=== PATIENT | female | born 1945 | race Caucasian/White ===

== ENCOUNTER 2020-09-28 13:05 | Emergency (ER) | payer MEDICARE, SELFPAY ==
--- NOTE | ~2020-09-28 | XR_ITS ---
EXAMINATION: XR CHEST CLINICAL INFORMATION: Weakness COMPARISON: Previous chest x-ray most recent January 2020 TECHNIQUE: Frontal view of the chest was obtained. FINDINGS: The cardiac and mediastinal contours are stable. The lungs are well inflated. The lungs are clear. There is no pleural effusion or pneumothorax. There are degenerative changes of the spine. XR/XR chest 1V IMPRESSION: Well-inflated lungs. No evidence for acute disease in the chest.
--- NOTE | 2020-09-28 13:38 | ECG_ITS ---
Test Reason : WEAKNESS Blood Pressure : / mmHG Vent. Rate : 054 BPM Atrial Rate : 054 BPM P-R Int : 192 ms QRS Dur : 086 ms QT Int : 414 ms P-R-T Axes : 061 074 067 degrees QTc Int : 392 ms Sinus bradycardia with Premature atrial complexes Otherwise normal ECG When compared with ECG of 18-FEB-2020 15:12, Premature atrial complexes are now Present Referred By: Alexys Mtz Electronically Signed By:VARSHA MORRELL
[2020-09-28 13:39] VITALS: BP 102/60; BP 118/56; PULSE 58; PULSE 62; RESP 18; TEMP 36.8; O2SAT 95; BMI 18.5
[2020-09-28 14:12] VITALS: BP 143/68; PULSE 62; RESP 18; O2SAT 98
[2020-09-28 14:12] LABS: MANUAL DIFF FLAG NO
[2020-09-28 14:15] LABS: Basophils Percent Auto 0.9 % (0-2); Eosinophils Absolute Auto 0.2 X10*3/uL (0.0-0.4); Eosinophils Percent Auto 5.2 % (0-4); Hematocrit 29.3 % (37-47); Hemoglobin 10.4 g/dl (12.0-16.0); Lymphocytes Absolute Auto 1.1 X10*3/uL (1.2-4.9); Lymphocytes Percent Auto 24.8 % (20-40); Mean Corpuscular HGB Conc 35.5 g/dl (31.0-35.0); Mean Corpuscular Hemoglobin 30.9 pg (27.0-33.0); Mean Corpuscular Volume 86.9 fL (80-98); Mean Platelet Volume 8.8 fL (9.4-12.3); Monocytes Absolute Auto 0.4 X10*3/uL (0.1-1.2); Monocytes Percent Auto 8.7 % (2-11); Neutrophils Absolute Auto 2.6 X10*3/uL (2.0-8.3); Neutrophils Percent Auto 60.4 % (45-73); Platelet Count 168 X10*3/uL (160-400); Red Blood Count 3.37 X10*6/uL (4.20-5.50); White Blood Count 4.3 X10*3/uL (4.8-10.8)
[2020-09-28 14:18] LABS: Prothrombin Time 12.3 SEC (10.8-13.0)
[2020-09-28 14:20] LABS: Partial Thromboplastin Time 32.6 SEC (24.1-38.0)
[2020-09-28 14:26] LABS: COVID-19 Test Negative (Negative)
--- NOTE | 2020-09-28 14:27 | PC.NURSE ---
PT ALERT AND ORIENTED, SKIN PWD, RESPIRATIONS EVEN AND UNLABORED. PT REPORTS PAIN ALL OVER ESPECIALLY IN HER BACK AND NECK AREA. PT VERY FRAIL IN APPEARANCE.
[2020-09-28 14:35] LABS: Alanine Aminotransferase 6 U/L (0-31); Albumin Level 3.6 g/dL (3.5-5.0); Alkaline Phosphatase 46 U/L (39-117); Anion Gap 13 (12-20); Aspartate Amino Transferase 11 U/L (5-31); Bilirubin Total 0.3 mg/dL (0.0-1.0); Blood Urea Nitrogen 11 mg/dL (9-16); Carbon Dioxide 28 mmol/L (22-29); Chloride 90 mmol/L (96-108); Creatinine Clr Calc Pharmacy 30.5; Estimated Glomerular Filt Rate 43; Glucose Random 104 mg/dL (60-115); Sodium 126 mmol/L (135-145); Total Protein 5.5 g/dL (6.5-8.0)
[2020-09-28 14:40] LABS: Troponin-I High Sensitivity < 3.5 ng/L (<3.5-17.0)
[2020-09-28 14:45] LABS: Glucose Urine UA NEG (NEG); Leukocyte Esterase Urine NEG (NEG); Nitrite Urine NEG (NEG); PH 6.5 (5.0-8.0); Specific Gravity - Urine <= 1.005 (1.005-1.025); Urine Blood 2+ (NEG); Urine Ketones NEG (NEG); Urine Protein NEG (NEG-TRACE)
[2020-09-28 14:47] LABS: Appearance Urine CLEAR; Color Urine YELLOW
[2020-09-28 15:03] LABS: WBC Urine 0-2 /HPF (0-4)
[2020-09-28 15:04] LABS: Amphetamine Screen Urine Not Detected (Not Detect); Barbiturates, Urine Not Detected (Not Detect); Benzodiazepines Screen Urine Not Detected (Not Detect); Cannabinoid Screen Urine Not Detected (Not Detect); Cocaine Screen Urine Not Detected (Not Detect); Opiate Screen Urine POSITIVE (Not Detect); Phencyclidine Screen Urine Not Detected (Not Detect)
[2020-09-28 15:23] VITALS: BP 143/68; PULSE 62; O2SAT 98
--- NOTE | 2020-09-28 15:28 | PC.NURSE ---
pt calling her wants to go home, getting dressed. 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
--- NOTE | 2020-09-28 15:35 | ED_ITS ---
HPI - General Adult General Chief complaint: General Medical Stated complaint: weakness Time Seen by Provider: 09/28/20 13:34 Source: patient Mode of arrival: ambulatory Limitations: no limitations History of Present Illness HPI narrative: 75-year-old female with past medical history that is significant for hypertension, hyperlipidemia, depression and anxiety disorder as well as chronic hyponatremia, postoperative anemia, surgical history of right hip fracture who presents via EMS from home with complaint of reporting generalized weakness and lump on the left side and neck as well as exacerbation of chronic back pain for which she is on oxycodone and unable to eat or care for herself. She otherwise denies any recent illness, no chest pain or shortness of breath no fall or injury. Onset (ago): day(s) Severity: moderate Associated symptoms: denies other symptoms Treatments prior to arrival: none Related Data Home Medications Medication Instructions Recorded Confirmed losartan 50 mg tablet 50 mg PO DAILY 07/24/20 09/28/20 metoprolol tartrate 25 mg tablet 25 mg PO BID 07/24/20 09/28/20 mirtazapine 1 tab PO BEDTIME 09/28/20 09/28/20 simvastatin 1 tab PO BEDTIME 09/28/20 09/28/20 trazodone 1 tab PO BEDTIME PRN 09/28/20 09/28/20 Previous Rx's Medication Instructions Recorded gabapentin 100 mg capsule 100 mg PO TID #90 cap 06/06/20 silver sulfadiazine 1 % topical 1 appl TOPICAL DAILY 10 Days #50 g 08/28/20 cream clonazepam 0.5 mg tablet 0.5 mg PO TID #90 tab 09/21/20 oxycodone 10 mg tablet 10 mg PO Q6H PRN 30 Days #120 tab 09/21/20 Allergies Allergy/AdvReac Type Severity Reaction Status Date / Time amoxicillin [AMOXICILLIN] Allergy Intermediate HIVES Verified 09/28/20 13:38 acetaminophen [Tylenol] Allergy Mild stomach Verified 09/28/20 13:38 upset penicillin V Allergy Mild Itching Verified 09/28/20 13:38 Penicillins [PENICILLINS] Allergy Mild Itching Verified 09/28/20 13:38 Eric inhibitors Allergy Unknown Unknown Uncoded 09/28/20 13:38 Clindamycin HCl AdvReac Mild Diarrhea Uncoded 09/28/20 13:38 Review of Systems Review of Systems: Constitutional: No Weight loss, No Fever, No Chills, No Night Sweats, No Fatigue, No Malaise ENT/Mouth: No Hearing loss, No Ear Pain, No Nasal Congestion, No Sinus Pain, No Hoarseness, No sore throat, No Rhinorrhea, No Swallowing Difficulty Eyes: No Eye Pain, No Swelling, No Redness, No Foreign Body, No Discharge, No Vision Changes Cardiovascular: No Chest Pain, No SOB, No Dyspnea on Exertion, No Orthopnea, No Edema, No Palpitations Respiratory: No Cough, No Sputum, No Wheezing, No Smoke Exposure, No Dyspnea Gastrointestinal: No Nausea, No Vomiting, No Diarrhea, No Constipation, No abdominal Pain, No Hematochezia, No Melena Genitourinary: No Dysuria, No Urinary Frequency, No Hematuria, No Urinary Incontinence, No Urgency, No Flank Pain Musculoskeletal: No joint pain, No Myalgias, No Joint Swelling Skin: No Skin Lesions, No rash Neuro: + Weakness, No Numbness, No Paresthesias, No Loss of Consciousness, No Dizziness, No Headache Psych: No Social Issues Heme/Lymph: No Bruising, No Bleeding,No Lymphadenopathy Endocrine: No Polyuria, No Polydipsia, No Temperature Intolerance Yes all other systems are reviewed and are negative [facility] Past Medical History Medical History (Updated 09/28/20 @ 15:48 by Alexys Mtz NP) Cervical cancer Chronic back pain Depression High cholesterol HTN (hypertension) Surgical History History of Social History Social History Smoking Status: Former smoker Use of substances other than those prescribed or required for medical reasons: No Advance Directives: No Advance Directives Information Provided: No Physical Exam Vital Signs: Vital Signs: Last Vital Signs Temp 98.2 F 09/28/20 13:39 Pulse 62 09/28/20 14:12 Resp 18 09/28/20 14:12 BP 143/68 H 09/28/20 14:12 Pulse Ox 98 09/28/20 14:12 Body Mass Index 18.5 Reviewed Const: Other: Elderly, ill-kempt, shows will order of spoke General: cooperative; No acute distress or intoxicated appearing Nutritional Appearance: average body habitus Orientation/consciousness: patient oriented x3 HENMT: Head: Yes normal to inspection Ears: hearing grossly normal bilaterally Face and sinus: Yes Facial tenderness on exam of face and sinuses (Palpable left anterior chain lymph node that is mobile. size of pea ) Eyes: General: appearance normal, both eyes and all related structures Visual Howell: normal visual howell by confrontation Neck: Neck: Yes normal visual inspection, No positive Brudzinski's sign, No positive Kernig's sign and No tender Thyroid: Thyroid normal Chest: Chest palpation & inspection: normal inspection of the chest Resp: Effort & Inspection: normal respiratory effort Auscultation: clear to auscultation bilaterally Cardio: Jugular venous distension: no JVD GI: Inspection: Yes normal to inspection Percussion: Yes normal to percussion Auscultation: normal bowel sounds : General: Yes no CVA tenderness Back/Spine/Pelvis: Back: no CVA tenderness Skin: General skin exam: no rashes or lesions noted Neuro: General: patient oriented x3 Extrem: General: Yes normal to inspection Course Course Course Narrative: 75-year-old female with multiple vague symptoms she does have a small palpable lymph node on the left side of the neck also complaining of generalized weakness and is ill kempt question social issues inability to care for self. Does live at home apparently with her will call the to give further history. Reevaluation(s) Reevaluation #1: Patient had lab work done directly after this states she would like to leave she does not want to hear or need to be here. I did ask her that she seems little ill kempt and if her home situation was okay states she is fine prior to this I did have PT consulted they are coming down to her however she do es not want to wait. She is demanding to leave. Patient subsequently got up from the bed without having the labs resulted yet and got dressed with assistance of staff and call to pick her up. She did not offer reason why she went to suddenly leave. Medical Decision Making Lab Data Result diagrams: 09/28/20 14:01 09/28/20 14:01 Labs: Lab Results 09/28/20 09/28/20 09/28/20 Range/Units 14:01 14:01 14:01 WBC 4.3 L (4.8-10.8) X10*3/uL RBC 3.37 L (4.20-5.50) X10*6/uL Hgb 10.4 L (12.0-16.0) g/dl Hct 29.3 L (37-47) % MCV 86.9 (80-98) fL MCH 30.9 (27.0-33.0) pg MCHC 35.5 H (31.0-35.0) g/dl RDW 13.0 (11.0-16.0) % Plt Count 168 (160-400) X10*3/uL MPV 8.8 L (9.4-12.3) fL Immature Gran % (Auto) 0.0 (0.0-0.4) % Neut % (Auto) 60.4 (45-73) % Lymph % (Auto) 24.8 (20-40) % [place] % (Auto) 8.7 (2-11) % Eos % (Auto) 5.2 H (0-4) % Baso % (Auto) 0.9 (0-2) % Lymph # (Auto) 1.1 L (1.2-4.9) X10*3/uL [place] # (Auto) 0.4 (0.1-1.2) X10*3/uL Eos # (Auto) 0.2 (0.0-0.4) X10*3/uL Baso # (Auto) 0.0 (0.0-0.2) X10*3/uL Abs Immat Gran (auto) 0.00 (0.00-0.03) X10*3/uL Absolute Neuts (auto) 2.6 (2.0-8.3) X10*3/uL Absolute Nucleated RBC 0.000 (0.0-0.012) X10*3/uL Nucleated RBC % (auto) 0.0 (0.0-0.2) /100WBC PT 12.3 (10.8-13.0) SEC INR 1.0 (0.9-1.1) APTT 32.6 (24.1-38.0) SEC Sodium 126 L (135-145) mmol/L Potassium 5.0 (3.3-5.1) mmol/L Chloride 90 L (96-108) mmol/L Carbon Dioxide 28 (22-29) mmol/L Anion Gap 13 (12-20) BUN 11 (9-16) mg/dL Creatinine 1.23 (0.5-1.4) mg/dL Estim Creat Clear Calc 30.5 Estimated GFR 43 Random Glucose 104 (60-115) mg/dL Calcium 9.0 (8.4-10.2) mg/dL Total Bilirubin 0.3 (0.0-1.0) mg/dL AST 11 (5-31) U/L ALT 6 (0-31) U/L Alkaline Phosphatase 46 (39-117) U/L Troponin I High Sens (<3.5-17.0) ng/L Total Protein 5.5 L (6.5-8.0) g/dL Albumin 3.6 (3.5-5.0) g/dL Urine Color Urine Appearance Urine pH (5.0-8.0) Ur Specific [place] (1.005-1.025) Urine Protein (NEG-TRACE) MG/DL Urine Glucose (UA) (NEG) MG/DL Urine Ketones (NEG) MG/DL Urine Blood (NEG) Urine Nitrite (NEG) Ur Leukocyte Esterase (NEG) Urine RBC (0) /HPF Urine WBC (0-4) /HPF Ur Squamous Epith Cells /LPF Urine Bacteria /LPF Urine Opiates Screen (Not Detect) Ur Barbiturates Screen (Not Detect) Ur Phencyclidine Scrn (Not Detect) Ur Amphetamines Screen (Not Detect) U Benzodiazepines Scrn (Not Detect) Urine Cocaine Screen (Not Detect) U Marijuana (THC) Screen (Not Detect) COVID-19 (CEDRICK) (Negative) COVID-19 Clin Com 09/28/20 09/28/20 09/28/20 Range/Units 14:01 14:01 14:16 WBC (4.8-10.8) X10*3/uL RBC (4.20-5.50) X10*6/uL Hgb (12.0-16.0) g/dl Hct (37-47) % MCV (80-98) fL MCH (27.0-33.0) pg MCHC (31.0-35.0) g/dl RDW (11.0-16.0) % Plt Count (160-400) X10*3/uL MPV (9.4-12.3) fL Immature Gran % (Auto) (0.0-0.4) % Neut % (Auto) (45-73) % Lymph % (Auto) (20-40) % [place] % (Auto) (2-11) % Eos % (Auto) (0-4) % Baso % (Auto) (0-2) % Lymph # (Auto) (1.2-4.9) X10*3/uL [place] # (Auto) (0.1-1.2) X10*3/uL Eos # (Auto) (0.0-0.4) X10*3/uL Baso # (Auto) (0.0-0.2) X10*3/uL Abs Immat Gran (auto) (0.00-0.03) X10*3/uL Absolute Neuts (auto) (2.0-8.3) X10*3/uL Absolute Nucleated RBC (0.0-0.012) X10*3/uL Nucleated RBC % (auto) (0.0-0.2) /100WBC PT (10.8-13.0) SEC INR (0.9-1.1) APTT (24.1-38.0) SEC Sodium (135-145) mmol/L Potassium (3.3-5.1) mmol/L Chloride (96-108) mmol/L Carbon Dioxide (22-29) mmol/L Anion Gap (12-20) BUN (9-16) mg/dL Creatinine (0.5-1.4) mg/dL Estim Creat Clear Calc Estimated GFR Random Glucose (60-115) mg/dL Calcium (8.4-10.2) mg/dL Total Bilirubin (0.0-1.0) mg/dL AST (5-31) U/L ALT (0-31) U/L Alkaline Phosphatase (39-117) U/L Troponin I High Sens < 3.5 (<3.5-17.0) ng/L Total Protein (6.5-8.0) g/dL Albumin (3.5-5.0) g/dL Urine Color YELLOW Urine Appearance CLEAR Urine pH 6.5 (5.0-8.0) Ur Specific [place] <= 1.005 (1.005-1.025) Urine Protein NEG (NEG-TRACE) MG/DL Urine Glucose (UA) NEG (NEG) MG/DL Urine Ketones NEG (NEG) MG/DL Urine Blood 2+ H (NEG) Urine Nitrite NEG (NEG) Ur Leukocyte Esterase NEG (NEG) Urine RBC 1-4 (0) /HPF Urine WBC 0-2 (0-4) /HPF Ur Squamous Epith Cells NONE /LPF Urine Bacteria NONE /LPF Urine Opiates Screen (Not Detect) Ur Barbiturates Screen (Not Detect) Ur Phencyclidine Scrn (Not Detect) Ur Amphetamines Screen (Not Detect) U Benzodiazepines Scrn (Not Detect) Urine Cocaine Screen (Not Detect) U Marijuana (THC) Screen (Not Detect) COVID-19 (CEDRICK) Negative (Negative) COVID-19 Clin Com See Note 09/28/20 Range/Units 14:16 WBC (4.8-10.8) X10*3/uL RBC (4.20-5.50) X10*6/uL Hgb (12.0-16.0) g/dl Hct (37-47) % MCV (80-98) fL MCH (27.0-33.0) pg MCHC (31.0-35.0) g/dl RDW (11.0-16.0) % Plt Count (160-400) X10*3/uL MPV (9.4-12.3) fL Immature Gran % (Auto) (0.0-0.4) % Neut % (Auto) (45-73) % Lymph % (Auto) (20-40) % [place] % (Auto) (2-11) % Eos % (Auto) (0-4) % Baso % (Auto) (0-2) % Lymph # (Auto) (1.2-4.9) X10*3/uL [place] # (Auto) (0.1-1.2) X10*3/uL Eos # (Auto) (0.0-0.4) X10*3/uL Baso # (Auto) (0.0-0.2) X10*3/uL Abs Immat Gran (auto) (0.00-0.03) X10*3/uL Absolute Neuts (auto) (2.0-8.3) X10*3/uL Absolute Nucleated RBC (0.0-0.012) X10*3/uL Nucleated RBC % (auto) (0.0-0.2) /100WBC PT (10.8-13.0) SEC INR (0.9-1.1) APTT (24.1-38.0) SEC Sodium (135-145) mmol/L Potassium (3.3-5.1) mmol/L Chloride (96-108) mmol/L Carbon Dioxide (22-29) mmol/L Anion Gap (12-20) BUN (9-16) mg/dL Creatinine (0.5-1.4) mg/dL Estim Creat Clear Calc Estimated GFR Random Glucose (60-115) mg/dL Calcium (8.4-10.2) mg/dL Total Bilirubin (0.0-1.0) mg/dL AST (5-31) U/L ALT (0-31) U/L Alkaline Phosphatase (39-117) U/L Troponin I High Sens (<3.5-17.0) ng/L Total Protein (6.5-8.0) g/dL Albumin (3.5-5.0) g/dL Urine Color Urine Appearance Urine pH (5.0-8.0) Ur Specific [place] (1.005-1.025) Urine Protein (NEG-TRACE) MG/DL Urine Glucose (UA) (NEG) MG/DL Urine Ketones (NEG) MG/DL Urine Blood (NEG) Urine Nitrite (NEG) Ur Leukocyte Esterase (NEG) Urine RBC (0) /HPF Urine WBC (0-4) /HPF Ur Squamous Epith Cells /LPF Urine Bacteria /LPF Urine Opiates Screen POSITIVE H (Not Detect) Ur Barbiturates Screen Not Detected (Not Detect) Ur Phencyclidine Scrn Not Detected (Not Detect) Ur Amphetamines Screen Not Detected (Not Detect) U Benzodiazepines Scrn Not Detected (Not Detect) Urine Cocaine Screen Not Detected (Not Detect) U Marijuana (THC) Screen Not Detected (Not Detect) COVID-19 (CEDRICK) (Negative) COVID-19 Clin Com Discharge Plan Discharge Clinical Impression: Weakness, Chronic hyponatremia, Lymph node disorder Patient Disposition: Left Against Medical Advice Prescriptions: No Action gabapentin 100 mg capsule 100 mg PO TID Qty: 90 RF: 8 metoprolol tartrate 25 mg tablet 25 mg PO BID RF: 0 losartan 50 mg tablet 50 mg PO DAILY RF: 0 silver sulfadiazine 1 % cream 1 appl topical DAILY 10 Days Qty: 50 RF: 3 clonazepam [Klonopin] 0.5 mg tablet 0.5 mg PO TID Qty: 90 RF: 0 oxycodone 10 mg tablet 10 mg PO Q6H PRN (Reason: pain) 30 Days Qty: 120 RF: 0 trazodone 100 mg tablet 1 tab PO BEDTIME PRN (Reason: Insomnia) RF: 0 simvastatin 20 mg tablet 1 tab PO BEDTIME RF: 0 mirtazapine 15 mg tablet 1 tab PO BEDTIME RF: 0 Interventions: ED Discharge Assessment Last Done: 09/28/20 15:31 Discharge Date/Time: 09/28/20 15:33
== END 2020-09-28 15:33 | disposition left against medical advice (07) ==
PROVIDERS: Nurse Practitioner Primary Care; Emergency Provider Emergency Medicine Emergency Medical Services; PCP Internal Medicine
DX: E87.1 Hypo-osmolality and hyponatremia (principal); R53.1 Weakness; R59.9 Enlarged lymph nodes, unspecified; I10 Essential (primary) hypertension; Z20.822 Contact with and (suspected) exposure to COVID-19; Z87.891 Personal history of nicotine dependence; Z79.899 Other long term (current) drug therapy
CPT/HCPCS: 36415; 71045; 80053; 80307; 81001; 84484; 85025; 85610; 85730; 87635; 93005; 97161; 99284

== ENCOUNTER 2020-10-29 16:41 | Emergency (ER) | payer MEDICARE, SELFPAY ==
[2020-10-29 16:53] VITALS: BP 167/77; BP 179/80; PULSE 70; PULSE 75; RESP 22; TEMP 36.6; O2SAT 100; O2SAT 98; BMI 16.8
--- NOTE | 2020-10-29 17:20 | ED.NAVMDI ---
HPI - Nausea/Vomiting/Diarrhea General Chief complaint: Nausea/Vomiting/Diarrhea Stated complaint: weakness back pain Time Seen by Provider: 10/29/20 17:11 Source: EMS Mode of arrival: EMS Limitations: no limitations History of Present Illness HPI Narrative: 75 yo female with reported with weakness, diarrhea, decreased PO intake and cough. All other history is limited as patient refuses to give me more information and wants to go home. She tells me she feels better and is cold and wants to go home. Related Data Home Medications Medication Instructions Recorded Confirmed losartan 50 mg tablet 50 mg PO DAILY 07/24/20 10/08/20 metoprolol tartrate 25 mg tablet 25 mg PO BID 07/24/20 10/08/20 simvastatin 1 tab PO BEDTIME 09/28/20 10/08/20 Previous Rx's Medication Instructions Recorded gabapentin 100 mg capsule 100 mg PO TID #90 cap 06/06/20 silver sulfadiazine 1 % topical 1 appl TOPICAL DAILY 10 Days #50 g 10/10/20 cream mirtazapine 15 mg tablet 15 mg PO BEDTIME #30 tab 10/12/20 trazodone 100 mg tablet 100 mg PO BEDTIME PRN #60 tab 10/12/20 food supplemt, lactose-reduced See Rx Instructions PO .COMPLEX 10/17/20 #5688 ml clonazepam 0.5 mg tablet 0.5 mg PO TID #90 tab 10/19/20 oxycodone 10 mg tablet 10 mg PO Q6H PRN 30 Days #120 tab 10/19/20 Allergies Allergy/AdvReac Type Severity Reaction Status Date / Time amoxicillin [AMOXICILLIN] Allergy Intermediate HIVES Verified 10/08/20 10:30 acetaminophen [Tylenol] Allergy Mild stomach Verified 10/08/20 10:30 upset penicillin V Allergy Mild Itching Verified 10/08/20 10:30 Penicillins [PENICILLINS] Allergy Mild Itching Verified 10/08/20 10:30 Eric inhibitors Allergy Unknown Unknown Uncoded 09/28/20 13:38 Clindamycin HCl AdvReac Mild Diarrhea Uncoded 09/28/20 13:38 Review of Systems Review of Systems: Refused to answer questions PMFSH Past Medical History Source: old records reviewed Medical History (Updated 10/29/20 @ 17:22 by Marisela Vaca NP) Cervical cancer Chronic back pain Depression High cholesterol HTN (hypertension) Surgical History History of Social History Social History (Updated 10/08/20 @ 10:30 by LARRY Natarajan) Alcohol intake: never Smoking Status: Former smoker Advance Directives: No Advance Directives Information Provided: No Physical Exam Vital Signs: Vital Signs: Last Vital Signs Temp 97.9 F 10/29/20 16:53 Pulse 75 10/29/20 16:53 Resp 22 H 10/29/20 16:53 BP 179/80 H 10/29/20 16:53 Pulse Ox 98 10/29/20 16:53 Body Mass Index 16.8 Const: General: healthy appearing and no acute distress Nutritional Appearance: average body habitus Orientation/consciousness: oriented to person and patient oriented x3 Limitations: no limitations HENMT: Head: Yes normal to inspection Ears: hearing grossly normal bilaterally General nose exam: Normal external nose present Face and sinus: Yes normal facial exam Mouth: Normal oral and palatal mucosa present Eyes: General: appearance normal, both eyes and all related structures Neck: Neck: Yes normal visual inspection Chest: Chest palpation & inspection: normal inspection of the chest Resp: Effort & Inspection: normal respiratory effort and able to speak in complete sentences GI: Inspection: Yes normal to inspection Skin: General skin exam: no rashes or lesions noted Neuro: General: oriented to person and patient oriented x3 Course Course Course Narrative: [id number]-went to see the patient and she tells me she is going home. She also she called her son and he is picking her up. I offered to examine the patient and she declined. Attempted to ask questions as to why she was here but patient refused to answer all questions. She is alert and oriented. Vital signs stable. Discharge Plan Discharge Clinical Impression: Weakness Patient Disposition: Left Against Medical Advice Instructions: Weakness (ED), Against Medical Advice (ED) Additional Instructions: You were seen by a provider however you refused an exam and all interventions offered to you Prescriptions: No Action gabapentin 100 mg capsule 100 mg PO TID Qty: 90 RF: 8 metoprolol tartrate 25 mg tablet 25 mg PO BID RF: 0 losartan 50 mg tablet 50 mg PO DAILY RF: 0 silver sulfadiazine 1 % cream 1 appl topical DAILY 10 Days Qty: 50 RF: 3 mirtazapine 15 mg tablet 15 mg PO BEDTIME Qty: 30 RF: 5 trazodone 100 mg tablet 100 mg PO BEDTIME PRN (Reason: Insomnia) Qty: 60 RF: 8 Ensure High Protein Liquid See Rx Instructions PO .COMPLEX Qty: 5688 RF: 8 clonazepam [Klonopin] 0.5 mg tablet 0.5 mg PO TID Qty: 90 RF: 0 oxycodone 10 mg tablet 10 mg PO Q6H PRN (Reason: pain) 30 Days Qty: 120 RF: 0 simvastatin 20 mg tablet 1 tab PO BEDTIME RF: 0 Referrals: Physician,Unknown [Primary Care Provider] - 2 days Stand Alone Forms: Against Medical Advice Interventions: ED Discharge Assessment Last Done: 10/29/20 17:54 Discharge Date/Time: 10/29/20 17:54
== END 2020-10-29 17:54 | disposition left against medical advice (07) ==
PROVIDERS: Emergency Provider Internal Medicine
DX: R53.1 Weakness (principal); I10 Essential (primary) hypertension; Z85.41 Personal history of malignant neoplasm of cervix uteri
CPT/HCPCS: 99283

== ENCOUNTER 2020-11-23 16:07 | Emergency (ER) | payer MEDICARE, SELFPAY ==
[2020-11-23 16:34] VITALS: BP 146/64; BP 152/76; PULSE 67; PULSE 72; RESP 16; TEMP 37.1; O2SAT 98; BMI 16.8
--- NOTE | 2020-11-23 17:05 | ED_ITS ---
HPI - General Adult General Chief complaint: General Medical Stated complaint: back pain Time Seen by Provider: 11/23/20 16:43 Source: EMS Mode of arrival: EMS Limitations: no limitations History of Present Illness HPI narrative: 75-year-old female with below noted past medical history including history of chronic pain, depression, hypercholesteremia, hypertension she presents via EMS from home with complaint of pain all over states she ran out of her pain medication and is having worsening pain. Onset (ago): day(s) Radiation: non-radiation Severity: moderate Quality: aching Pain Consistency: constant Relieving factors: none Exacerbating factors: none Associated symptoms: denies other symptoms Related Data Home Medications Medication Instructions Recorded Confirmed losartan 50 mg tablet 50 mg PO DAILY 07/24/20 10/08/20 metoprolol tartrate 25 mg tablet 25 mg PO BID 07/24/20 10/08/20 simvastatin 1 tab PO BEDTIME 09/28/20 10/08/20 Previous Rx's Medication Instructions Recorded gabapentin 100 mg capsule 100 mg PO TID #90 cap 06/06/20 mirtazapine 15 mg tablet 15 mg PO BEDTIME #30 tab 10/12/20 trazodone 100 mg tablet 100 mg PO BEDTIME PRN #60 tab 10/12/20 food supplemt, lactose-reduced See Rx Instructions PO .COMPLEX 10/17/20 #5688 ml clonazepam 0.5 mg tablet 0.5 mg PO TID #90 tab 10/19/20 silver sulfadiazine 1 % topical 1 appl TOPICAL DAILY 10 Days #50 g 11/13/20 cream oxycodone 10 mg tablet 10 mg PO Q6H PRN 30 Days #60 tab 11/16/20 Allergies Allergy/AdvReac Type Severity Reaction Status Date / Time amoxicillin [AMOXICILLIN] Allergy Intermediate HIVES Verified 10/08/20 10:30 acetaminophen [Tylenol] Allergy Mild stomach Verified 10/08/20 10:30 upset penicillin V Allergy Mild Itching Verified 10/08/20 10:30 Penicillins [PENICILLINS] Allergy Mild Itching Verified 10/08/20 10:30 Eric inhibitors Allergy Unknown Unknown Uncoded 09/28/20 13:38 Clindamycin HCl AdvReac Mild Diarrhea Uncoded 09/28/20 13:38 Review of Systems Review of Systems: Constitutional: No Weight loss, No Fever, No Chills, No Night Sweats, No Fatigue, No Malaise ENT/Mouth: No Hearing loss, No Ear Pain, No Nasal Congestion, No Sinus Pain, No Hoarseness, No sore throat, No Rhinorrhea, No Swallowing Difficulty Eyes: No Eye Pain, No Swelling, No Redness, No Foreign Body, No Discharge, No Vision Changes Cardiovascular: No Chest Pain, No SOB, No Dyspnea on Exertion, No Orthopnea, No Edema, No Palpitations Respiratory: No Cough, No Sputum, No Wheezing, No Smoke Exposure, No Dyspnea Gastrointestinal: No Nausea, No Vomiting, No Diarrhea, No Constipation, No abdominal Pain, No Hematochezia, No Melena Genitourinary: No Dysuria, No Urinary Frequency, No Hematuria, No Urinary Incontinence, No Urgency, No Flank Pain, No Urinary Flow Changes, No Hesitancy Musculoskeletal: No joint pain, No Myalgias, No Joint Swelling Skin: No Skin Lesions, No rash Neuro: No Weakness, No Numbness, No Paresthesias, No Loss of Consciousness, No Dizziness, No Headache Psych: No Anxiety/Panic, No Depression, No SI/HI/AH/VH, No Social Issues Heme/Lymph: No Bruising, No Bleeding,No Lymphadenopathy Endocrine: No Polyuria, No Polydipsia, No Temperature Intolerance Yes all other systems are reviewed and are negative [facility] Past Medical History Medical History Cervical cancer Chronic back pain Depression DJD (degenerative joint disease) High cholesterol HTN (hypertension) Surgical History History of Social History Social History (Updated 10/08/20 @ 10:30 by Adelina Saleh Zhang) Alcohol intake: never Smoking Status: Former smoker Advance Directives: No Advance Directives Information Provided: Yes Physical Exam Vital Signs: Vital Signs: Last Vital Signs Temp 98.8 F 11/23/20 16:34 Pulse 67 11/23/20 16:34 Resp 16 11/23/20 16:34 BP 146/64 H 11/23/20 16:34 Pulse Ox 98 11/23/20 16:34 Body Mass Index 16.8 Reviewed Const: General: cooperative; No acute distress or intoxicated appearing Nutritional Appearance: average body habitus Orientation/consciousness: patient oriented x3 HENMT: Head: Yes normal to inspection Ears: hearing grossly normal bilaterally Eyes: General: appearance normal, both eyes and all related structures Visual Howell: normal visual howell by confrontation Neck: Neck: Yes normal visual inspection, No positive Brudzinski's sign, No positive Kernig's sign and No tender Thyroid: Thyroid normal Chest: Chest palpation & inspection: normal inspection of the chest Resp: Effort & Inspection: normal respiratory effort Auscultation: clear to auscultation bilaterally Cardio: Jugular venous distension: no JVD Rhythm: regular rhythm Heart sounds: S1 normal heart sound present and S2 normal heart sound present GI: Inspection: Yes normal to inspection Percussion: Yes normal to percussion Auscultation: normal bowel sounds : General: Yes no CVA tenderness Back/Spine/Pelvis: Back: no CVA tenderness Skin: General skin exam: no rashes or lesions noted Neuro: General: patient oriented x3 Extrem: General: Yes normal to inspection Course Course Course Narrative: Mass pat reviewed extensive control substance, on the of every month she gets 120 tablets of 10 mg of oxycodone or 90 tablets and other November 16 she got 60 tablets and now it is 7 days out and she is out. She states she only takes some 2 times a day and unsure with the remainder are. She tells me that if I am not going to give her a prescription for pain medication she will leave. Concern for potential control substance abuse she has extensive feel pattern and offers no acute medical complaints at this time. She is hemodynamically s table. She is able to get up and dress herself and ambulate with steady gait. Discharge Plan Discharge Clinical Impression: Chronic pain syndrome, Drug-seeking behavior Patient Disposition: Home, Self-Care Instructions: Chronic Pain (ED) Additional Instructions: Please follow-up with primary care doctor Return if any concerns or symptoms Thank you Prescriptions: No Action gabapentin 100 mg capsule 100 mg PO TID Qty: 90 RF: 8 metoprolol tartrate 25 mg tablet 25 mg PO BID RF: 0 losartan 50 mg tablet 50 mg PO DAILY RF: 0 mirtazapine 15 mg tablet 15 mg PO BEDTIME Qty: 30 RF: 5 trazodone 100 mg tablet 100 mg PO BEDTIME PRN (Reason: Insomnia) Qty: 60 RF: 8 Ensure High Protein Liquid See Rx Instructions PO .COMPLEX Qty: 5688 RF: 8 clonazepam [Klonopin] 0.5 mg tablet 0.5 mg PO TID Qty: 90 RF: 0 silver sulfadiazine 1 % cream 1 appl topical DAILY 10 Days Qty: 50 RF: 3 oxycodone 10 mg tablet 10 mg PO Q6H PRN (Reason: pain) 30 Days Qty: 60 RF: 0 simvastatin 20 mg tablet 1 tab PO BEDTIME RF: 0 Referrals: Franklin Guerrero MD [Primary Care Provider] - 3 days
== END 2020-11-23 17:26 | disposition home or self-care (01) ==
PROVIDERS: Emergency Provider Emergency Medicine; PCP Internal Medicine
DX: M54.5 Low back pain (principal); G89.4 Chronic pain syndrome; I10 Essential (primary) hypertension; Z79.899 Other long term (current) drug therapy; Z87.891 Personal history of nicotine dependence
CPT/HCPCS: 99283

== ENCOUNTER 2020-12-03 13:30 | Emergency (ER) | payer MEDICARE, SELFPAY ==
[2020-12-03 13:44] VITALS: BP 116/60; BP 136/43; PULSE 76; PULSE 87; RESP 18; TEMP 36.1; O2SAT 98; O2SAT 99; BMI 24.9
--- NOTE | 2020-12-03 13:44 | ED_ITS ---
HPI - General Adult General Stated complaint: CHRONIC FOOT BACK AND HIP PAIN Time Seen by Provider: 12/03/20 13:40 Source: EMS Mode of arrival: ambulatory Limitations: no limitations History of Present Illness HPI narrative: History of the chronic pain she came by ambulance she ran out of her pain medicine requesting narcotic refill. No new injury or new complaints. Onset (ago): day(s) Radiation: non-radiation Exacerbating factors: none Associated symptoms: denies other symptoms Treatments prior to arrival: none Related Data Home Medications Medication Instructions Recorded Confirmed losartan 50 mg tablet 50 mg PO DAILY 07/24/20 10/08/20 metoprolol tartrate 25 mg tablet 25 mg PO BID 07/24/20 10/08/20 Previous Rx's Medication Instructions Recorded gabapentin 100 mg capsule 100 mg PO TID #90 cap 06/06/20 mirtazapine 15 mg tablet 15 mg PO BEDTIME #30 tab 10/12/20 trazodone 100 mg tablet 100 mg PO BEDTIME PRN #60 tab 10/12/20 food supplemt, lactose-reduced See Rx Instructions PO .COMPLEX 10/17/20 #5688 ml clonazepam 0.5 mg tablet 0.5 mg PO TID #90 tab 10/19/20 silver sulfadiazine 1 % topical 1 appl TOPICAL DAILY 10 Days #50 g 11/13/20 cream oxycodone 10 mg tablet 10 mg PO Q6H PRN 30 Days #60 tab 11/16/20 simvastatin 20 mg tablet 20 mg PO BEDTIME 90 Days #90 tab 11/28/20 Allergies Allergy/AdvReac Type Severity Reaction Status Date / Time amoxicillin [AMOXICILLIN] Allergy Intermediate HIVES Verified 10/08/20 10:30 acetaminophen [Tylenol] Allergy Mild stomach Verified 10/08/20 10:30 upset penicillin V Allergy Mild Itching Verified 10/08/20 10:30 Penicillins [PENICILLINS] Allergy Mild Itching Verified 10/08/20 10:30 Eric inhibitors Allergy Unknown Unknown Uncoded 09/28/20 13:38 Clindamycin HCl AdvReac Mild Diarrhea Uncoded 09/28/20 13:38 Review of Systems Review of Systems: Constitutional: No Weight loss, No Fever, No Chills, No Night Sweats, No Fatigue, No Malaise ENT/Mouth: No Hearing loss, No Ear Pain, No Nasal Congestion, No Sinus Pain, No Hoarseness, No sore throat, No Rhinorrhea, No Swallowing Difficulty Eyes: No Eye Pain, No Swelling, No Redness, No Foreign Body, No Discharge, No Vision Changes Cardiovascular: No Chest Pain, No SOB, No Dyspnea on Exertion, No Orthopnea, No Edema, No Palpitations Respiratory: No Cough, No Sputum, No Wheezing, No Smoke Exposure, No Dyspnea Gastrointestinal: No Nausea, No Vomiting, No Diarrhea, No Constipation, No abdominal Pain, No Hematochezia, No Melena Genitourinary: no irregular bleeding, No Dysuria, No Urinary Frequency, No Hematuria, No Urinary Incontinence, No Urgency, No Flank Pain, No Urinary Flow Changes, No Hesitancy Musculoskeletal: No joint pain, No Myalgias, No Joint Swelling, As npted per HPI Skin: No Skin Lesions, No rash Neuro: No Weakness, No Numbness, No Paresthesias, No Loss of Consciousness, No Dizziness, No Headache Psych: No Anxiety/Panic, No Depression, No SI/HI/AH/VH, No Social Issues Heme/Lymph: No Bruising, No Bleeding,No Lymphadenopathy Endocrine: No Polyuria, No Polydipsia, No Temperature Intolerance Yes all other systems are reviewed and are negative [facility] Past Medical History Medical History Cervical cancer Chronic back pain Depression DJD (degenerative joint disease) High cholesterol HTN (hypertension) Surgical History History of Social History Social History (Updated 10/08/20 @ 10:30 by Adelina Saleh [facility]) Alcohol intake: never Smoking Status: Former smoker Advance Directives: No Advance Directives Information Provided: No Physical Exam Vital Signs: Vital Signs: Reviewed Const: General: cooperative; No acute distress or intoxicated appearing Nutritional Appearance: average body habitus Orientation/consciousness: patient oriented x3 HENMT: Head: Yes normal to inspection Ears: hearing grossly normal bilaterally Eyes: General: appearance normal, both eyes and all related structures Visual Howell: normal visual howell by confrontation Neck: Neck: Yes normal visual inspection, No positive Brudzinski's sign, No positive Kernig's sign and No tender Thyroid: Thyroid normal Chest: Chest palpation & inspection: normal inspection of the chest Resp: Effort & Inspection: normal respiratory effort Cardio: Jugular venous distension: no JVD Rhythm: regular rhythm Heart sounds: S1 normal heart sound present and S2 normal heart sound present GI: Inspection: Yes normal to inspection Palpation (GI): Soft to palpation Percussion: Yes normal to percussion Auscultation: normal bowel sounds : General: Yes no CVA tenderness Back/Spine/Pelvis: Back: no CVA tenderness Skin: General skin exam: no rashes or lesions noted Neuro: General: patient oriented x3 Extrem: General: Yes normal to inspection Course Reevaluation(s) Reevaluation #1: Mass pad again reviewed multiple narcotic feels she appears to be on a pain contract with her GP, had 60 pills filled and states he was supposed to be 90 she ran out. No new complaints. Aware that I cannot give her any narcotics here and had a conversation with her regarding management of chronic pain alternatives aside from narcotic based medication offered but she refused. She has no acute complaints. She requests to be discharged if it was not going to give her any narcotic prescriptions. Discharge Plan Discharge Clinical Impression: Chronic back pain, Drug-seeking behavior Patient Disposition: Home, Self-Care Instructions: Chronic Pain (ED) Additional Instructions: Please follow-up with your primary care doctor regarding the need for management of your chronic pain and chronic pain medication management Return if any concerns or worsening symptoms Thank you Prescriptions: No Action gabapentin 100 mg capsule 100 mg PO TID Qty: 90 RF: 8 metoprolol tartrate 25 mg tablet 25 mg PO BID RF: 0 losartan 50 mg tablet 50 mg PO DAILY RF: 0 mirtazapine 15 mg tablet 15 mg PO BEDTIME Qty: 30 RF: 5 trazodone 100 mg tablet 100 mg PO BEDTIME PRN (Reason: Insomnia) Qty: 60 RF: 8 Ensure High Protein Liquid See Rx Instructions PO .COMPLEX Qty: 5688 RF: 8 clonazepam [Klonopin] 0.5 mg tablet 0.5 mg PO TID Qty: 90 RF: 0 silver sulfadiazine 1 % cream 1 appl topical DAILY 10 Days Qty: 50 RF: 3 oxycodone 10 mg tablet 10 mg PO Q6H PRN (Reason: pain) 30 Days Qty: 60 RF: 0 simvastatin 20 mg tablet 20 mg PO BEDTIME 90 Days Qty: 90 RF: 8 Referrals: Franklin Guerrero MD [Primary Care Provider] - 2 days
== END 2020-12-03 14:02 | disposition home or self-care (01) ==
PROVIDERS: Emergency Provider Student in an Organized Health Care Education/Training Program; PCP Internal Medicine
DX: Z76.5 Malingerer [conscious simulation] (principal); G89.29 Other chronic pain; M54.9 Dorsalgia, unspecified
CPT/HCPCS: 99283

== ENCOUNTER 2021-01-20 09:51 | Emergency (ER) | payer MEDICARE, SELFPAY ==
--- NOTE | ~2021-01-20 | CT_ITS ---
EXAMINATION: CT BRAIN, CT CERVICAL, THORACIC AND LUMBAR SPINE. CLINICAL INFORMATION: Status post fall. COMPARISON: CT brain and CT cervical spine 02/19/2020 TECHNIQUE: 5 minutes and axial and reformatted 2 mm thin sagittal and coronal images of brain were obtained. Axial 3 mm thin and reformatted 2 mm thin images of cervical spine for obtained. DLP [id number]. Axial 2 mm thin and reformatted 2 mm thin sagittal coronal images of thoracic and lumbar spine were obtained. DLP [id number] FINDINGS: Brain: There is no acute intra-axial, extra-axial bleed, masses or midline shift. There is no acute infarct in evolution. De [place] Rosa to white matter difference is maintained. The lateral ventricles are symmetrical in size but enlarged with mild prominence of cortical sulci. There is periventricular hypodensity in both cerebral hemispheres. There is no scalp hematoma except for nonspecific calcification along the anterior forehead skin. No calvarial fracture or abnormality seen. Bilateral paranasal sinuses and mastoid air cells are well aerated. Cervical spine: There is mild straightening of cervical lordosis. There is grade 1 anterolisthesis C2 or C3 and C3 over C4 and grade 1 retrolisthesis C4 over C3 and C5 vertebra. The craniovertebral junction and the C1-C2 alignment is preserved normal. There is no visible acute fracture, dislocation or subluxation seen. There is right C2-C3 and bilateral C3-C4 facet joint arthropathy. No visible acute fracture or dislocation seen. There is a moderate size vertical fissure through the C5 vertebra simulating fracture. In addition there are endplate changes C5-C6 and C4-C5 disc levels. Thoracic spine: There is normal thoracic kyphosis. The vertebral heights, alignment and disc heights are normal. There is mild osteopenia. There is moderate loss of T7-T8 and T9-T10 disc heights ventral and posterior spondylosis and endplate sclerosis. There is no visible acute fracture, dislocation or subluxation. The paravertebral soft tissues are normal. There is a right apical posterior pleural thickening with calcification and apical parenchymal scarring. There is a diffuse centrilobular emphysema in the visualized lungs. Mild atherosclerosis of thoracic aorta noted. The ascending aorta measures 3.2 x 3.5 cm. The data descending thoracic aorta measures 2.5 x 2.6 cm on axial image 73/7. There are coronary artery calcifications present. Lumbar spine: There is maintained lumbar lordosis. There is mild levoscoliosis upper lumbar spine. The vertebral heights and alignment is normal. There is loss of L2-L3 disc height with vacuum disc phenomena, ventral and posterior spondylosis. No visible acute fracture, dislocation or lytic process seen. The SI joints are symmetrical and normal. There is colonic diverticulosis without diverticulitis. The gallbladder has been surgically removed. CT/CT thoracic spine wo con IMPRESSION: No acute intracranial process seen. Age-related cerebral volume loss. Mild chronic small vessel ischemia in both cerebral hemispheres. Degenerative disc changes cervical spine with listhesis as described above. No visible acute fracture or dislocation seen. Acute fracture or dislocation thoracic spine. There are degenerative disc changes with mild ventral and moderate posterior spondylosis at T7-T8 and T9-T10 disc levels. There is diffuse osteopenia. No visible acute fracture, dislocation or lytic process seen. Mild levoscoliosis upper lumbar spine with degenerative disc changes L2-L3 disc level. No visible acute fracture, dislocation seen in the lumbar spine region.
[2021-01-20 09:59] VITALS: BP 115/63; PULSE 60; RESP 16; TEMP 36.7; O2SAT 96; BMI 18.8
--- NOTE | 2021-01-20 10:22 | ECG_ITS ---
Test Reason : FALL Blood Pressure : / mmHG Vent. Rate : 057 BPM Atrial Rate : 057 BPM P-R Int : 150 ms QRS Dur : 084 ms QT Int : 418 ms P-R-T Axes : 076 066 070 degrees QTc Int : 406 ms Sinus bradycardia Otherwise normal ECG When compared with ECG of 28-SEP-2020 13:50, Premature atrial complexes are no longer Present Referred By: Lindsey Castro Electronically Signed By:VARSHA MORRELL
--- NOTE | 2021-01-20 10:51 | ED.GENADULT ---
HPI - General Adult General Chief complaint: Fall Stated complaint: back pain, fall yesterday Time Seen by Provider: 01/20/21 10:14 Source: patient and EMS History of Present Illness HPI narrative: 75 y.o. F with PMH of hypertension, hyperlipidemia, depression, anxiety, chronic hyponatremia, chronic pain, presenting to the emergency department with back pain after fall yesterday. Patient states she fell twice. She is not sure why she fell yesterday but states she was walking with her walker and fell backwards x2. Her at bedside did witness the event and states she fell backwards she did not have LOC during this period. She ambulates with a walker at baseline which she did have. She is not on anticoagulation. She is endorsing back pain. She states she no longer has her pain medication. She states she is feeling generally weak. She states she has shortness of breath that is chronic which is unchanged. She currently denies chest pain, abdominal pain, vomiting, diarrhea. No new incontinence. Related Data Home Medications Medication Instructions Recorded Confirmed trazodone 100 mg PO BEDTIME 01/20/21 01/20/21 Previous Rx's Medication Instructions Recorded gabapentin 100 mg capsule 100 mg PO TID #90 cap 06/06/20 simvastatin 20 mg tablet 20 mg PO BEDTIME 90 Days #90 tab 11/28/20 mirtazapine 15 mg tablet 15 mg PO BEDTIME #30 tab 12/04/20 losartan 50 mg tablet 50 mg PO DAILY #90 tab 12/17/20 clonazepam 0.5 mg tablet 0.5 mg PO TID #90 tab 01/15/21 Allergies Allergy/AdvReac Type Severity Reaction Status Date / Time amoxicillin [AMOXICILLIN] Allergy Intermediate HIVES Verified 10/08/20 10:30 acetaminophen [Tylenol] Allergy Mild stomach Verified 10/08/20 10:30 upset penicillin V Allergy Mild Itching Verified 10/08/20 10:30 Penicillins [PENICILLINS] Allergy Mild Itching Verified 10/08/20 10:30 Eirc inhibitors Allergy Unknown Unknown Uncoded 09/28/20 13:38 Clindamycin HCl AdvReac Mild Diarrhea Uncoded 09/28/20 13:38 Review of Systems Constitutional: Constitutional: Denies fever(s) and Denies headache(s) Comments: multiple falls Eyes: Eyes: Reports no additional eye complaints ENT: Denies headache(s) Cardiovascular: Cardiovascular: Denies chest pain Respiratory: Respiratory: Denies cough Gastrointestinal: Gastrointestinal: Denies abdominal pain, Denies diarrhea and Denies vomiting Musculoskeletal: Musculoskeletal: Reports back pain Neurologic: Denies confusion and Denies headache(s) Psychiatric: Psychiatric: Denies confusion Hematologic/Lymphatic: Hematologic/Lymphatic: Denies easy bleeding [facility] Past Medical History Medical History Cervical cancer Chronic back pain Depression DJD (degenerative joint disease) High cholesterol HTN (hypertension) Surgical History History of Social History Social History (Updated 01/20/21 @ 14:21 by BENOIT Whitfield) Household Members: Spouse Alcohol intake: never Patient Tobacco Use Status: Current everyday Tobacco user Cigarettes Per Day: 9 Use of substances other than those prescribed or required for medical reasons: No Advance Directives: Yes Advance Directives Information Provided: Yes Advance Directives on File: No Physical Exam Vital Signs: Vital Signs: Last Vital Signs Temp 98.0 F 01/20/21 09:59 Pulse 60 01/20/21 09:59 Resp 16 01/20/21 09:59 BP 115/63 01/20/21 09:59 Pulse Ox 96 01/20/21 09:59 Body Mass Index 18.8 Const: General: cooperative; No confusion Orientation/consciousness: No confusion HENMT: Head: Yes atraumatic Eyes: Pupils: Equal, round and reactive pupils present EOM: EOMs intact bilaterally Neck: Neck: Yes full ROM, Yes trachea midline, Yes supple and No tender Chest: Other: nontender to palpation Chest palpation & inspection: normal inspection of the chest Resp: Effort & Inspection: normal respiratory effort Auscultation: clear to auscultation bilaterally Cardio: Rate: regular rate Rhythm: regular rhythm GI: Palpation (GI): Soft to palpation, nontender, no guarding and not rigid Back/Spine/Pelvis: Other: Kyphotic spine, no significant midline tenderness, pelvis stable Skin: Other: Warm Neuro: General: No confusion Cranial nerves: Yes Equal, round and reactive pupils present Extrem: Other: Diminished strength bilaterally to lower extremities, palpable pedal pulses, able to range passively, compartment soft, no limb shortening or rotation Psych: Other: Disheveled hair, frail Course Reevaluation(s) Reevaluation #1: pt. resting in the stretcher. i discussed results with her. She states she cannot provide a urine sample, I advised her we should straight cath her which she is refusing. I offered PT/case mnagement evaluation especially since she has fallen, but pt. is declining. WIll ambulate in the ED and assess her stability. Time: 13:15 Reevaluation #2: Current ambulated with the patient the walker and states she was fairly unsteady. Patient is continuing to request discharge. I discussed with patient and that we strongly recommend that she stay for PT and case management evaluation. Patient does not have any children who I can contact. She states she has wanting to go home. I discussed with her that she really should stay since she is unsteady with a walker and she had a fall and fracture a bone or cause internal bleeding should she fall again, but he states it is her decision. plans on transporting patient home. I recommended she return should she continue to feel weaker, has recurring falls. Patient will leave AMA. Time: 14:13 Medical Decision Making [facility] Narrative Medical decision making narrative: 75-year-old female presenting to the emergency department after full x2 yesterday, states she fell backwards and now is endorsing back pain Vital stable, nontoxic appearing, hemodynamically stable Due to her age plan for head CT to rule out intracranial pathology, she is otherwise not anticoagulated, is A&O x3. A plan for cervical, thoracic and lumbar CT to rule out underlying fracture given she fell onto her back. No evidence of chest wall trauma or tenderness to suggest underlying rib fracture pneumothorax. Her abdomen is otherwise soft, nondistended, low concern for intra-abdominal process. I checked basic labs. We will check troponin EKG for signs of ischemia. I doubt this is syncope as patient did not have LOC and at bedside reports he witnessed the falls. She does have a history of hyponatremia will elevate her electrolytes to rule out the cause of her falls. will check UA for signs of infection. She is otherwise afebrile therefore sepsis is less likely.WIll hold off on giving narcotics due to her age. Will provide lidocaine patch for her pain. Lab Data Result diagrams: 01/20/21 10:57 01/20/21 10:57 Labs: Lab Results 05/30/21 05/30/21 05/30/21 Range/Units 10:57 10:57 10:57 WBC 5.1 (4.8-10.8) X10*3/uL RBC 3.93 L (4.20-5.50) X10*6/uL Hgb 11.8 L (12.0-16.0) g/dl Hct 35.0 L (37-47) % MCV 89.1 (80-98) fL MCH 30.0 (27.0-33.0) pg MCHC 33.7 (31.0-35.0) g/dl RDW 14.2 (11.0-16.0) % Plt Count 191 (160-400) X10*3/uL MPV 8.8 L (9.4-12.3) fL Immature Gran % (Auto) 0.2 (0.0-0.4) % Neut % (Auto) 62.4 (45-73) % Lymph % (Auto) 25.7 (20-40) % [place] % (Auto) 6.2 (2-11) % Eos % (Auto) 4.7 H (0-4) % Baso % (Auto) 0.8 (0-2) % Lymph # (Auto) 1.3 (1.2-4.9) X10*3/uL [place] # (Auto) 0.3 (0.1-1.2) X10*3/uL Eos # (Auto) 0.2 (0.0-0.4) X10*3/uL Baso # (Auto) 0.0 (0.0-0.2) X10*3/uL Abs Immat Gran (auto) 0.01 (0.00-0.03) X10*3/uL Absolute Neuts (auto) 3.2 (2.0-8.3) X10*3/uL Absolute Nucleated RBC 0.000 (0.0-0.012) X10*3/uL Nucleated RBC % (auto) 0.0 (0.0-0.2) /100WBC Sodium 135 (135-145) mmol/L Potassium 5.0 (3.3-5.1) mmol/L Chloride 101 (96-108) mmol/L Carbon Dioxide 26 (22-29) mmol/L Anion Gap 13 (12-20) BUN 12 (9-16) mg/dL Creatinine 1.14 (0.5-1.4) mg/dL Estim Creat Clear Calc 30.5 Estimated GFR 46 Random Glucose 111 (60-115) mg/dL Calcium 9.4 (8.4-10.2) mg/dL Troponin I High Sens 3.5 (<3.5-17.0) ng/L Discharge Plan Discharge Clinical Impression: Fall, Back pain Patient Disposition: Left Against Medical Advice Instructions: Back Pain (ED), Fall Prevention (ED) Additional Instructions: We encouraged you to stay for physical therapy evaluation for possible rehab placement due to your unsteadiness, but you declined and chose to leave against medical advice. Please call your doctor tomorrow to schedule a follow-up appointment. Please return to the emergency department if your symptoms worsen, worsening back pain, difficulty walking, recurring fall, bladder/bowel incontinence, chest pain, dizziness, weakness, or any other concerning symptoms. Prescriptions: No Action gabapentin 100 mg capsule 100 mg PO TID Qty: 90 RF: 8 simvastatin 20 mg tablet 20 mg PO BEDTIME 90 Days Qty: 90 RF: 8 mirtazapine 15 mg tablet 15 mg PO BEDTIME Qty: 30 RF: 5 losartan 50 mg tablet 50 mg PO DAILY Qty: 90 RF: 8 clonazepam [Klonopin] 0.5 mg tablet 0.5 mg PO TID Qty: 90 RF: 5 trazodone 100 mg tablet 100 mg PO BEDTIME RF: 0 Interventions: ED Discharge Assessment Last Done: 01/20/21 14:21 Discharge Date/Time: 01/20/21 14:22
--- NOTE | 2021-01-20 10:55 | PC.NURSE ---
pt refusing lidocaine patch. asking for something else. pt educated she is not getting narcotics. provider not comfortable giving motrin and pt is allergic to tylenol.
[2021-01-20 11:06] LABS: MANUAL DIFF FLAG NO
[2021-01-20 11:10] LABS: Basophils Percent Auto 0.8 % (0-2); Eosinophils Absolute Auto 0.2 X10*3/uL (0.0-0.4); Eosinophils Percent Auto 4.7 % (0-4); Hemoglobin 11.8 g/dl (12.0-16.0); Imm Gran Abs Auto 0.01 X10*3/uL (0.00-0.03); Imm Gran Pct Auto 0.2 % (0.0-0.4); Lymphocytes Absolute Auto 1.3 X10*3/uL (1.2-4.9); Lymphocytes Percent Auto 25.7 % (20-40); Mean Corpuscular HGB Conc 33.7 g/dl (31.0-35.0); Mean Corpuscular Volume 89.1 fL (80-98); Mean Platelet Volume 8.8 fL (9.4-12.3); Monocytes Absolute Auto 0.3 X10*3/uL (0.1-1.2); Monocytes Percent Auto 6.2 % (2-11); Neutrophils Absolute Auto 3.2 X10*3/uL (2.0-8.3); Neutrophils Percent Auto 62.4 % (45-73); Platelet Count 191 X10*3/uL (160-400); Red Blood Count 3.93 X10*6/uL (4.20-5.50); Red Cell Distribution Width 14.2 % (11.0-16.0); White Blood Count 5.1 X10*3/uL (4.8-10.8)
--- NOTE | 2021-01-20 11:21 | PC.NURSE ---
pt did take lidocaine patch, placed on lower back
[2021-01-20 11:40] LABS: Anion Gap 13 (12-20); Blood Urea Nitrogen 12 mg/dL (9-16); Calcium 9.4 mg/dL (8.4-10.2); Carbon Dioxide 26 mmol/L (22-29); Chloride 101 mmol/L (96-108); Creatinine Clr Calc Pharmacy 30.5; Estimated Glomerular Filt Rate 46; Glucose Random 111 mg/dL (60-115); Sodium 135 mmol/L (135-145)
[2021-01-20 11:41] LABS: Troponin-I High Sensitivity 3.5 ng/L (<3.5-17.0)
--- NOTE | 2021-01-20 13:16 | PC.NURSE ---
pt refusing straight cath per pa. plan to attempt ambulation for dc
--- NOTE | 2021-01-20 13:53 | PC.NURSE ---
Addendum entered by Irma Crump 01/20/21 13:54: pa aware and plan to keep for pt/cm Original Note: pt ambulated with walker with assitance, pt very unsteady trying to seed cone picker walker and tilting to the side.
== END 2021-01-20 14:22 | disposition left against medical advice (07) ==
PROVIDERS: Physician Assistant Medical; Emergency Provider Emergency Medicine Emergency Medical Services; PCP Internal Medicine
DX: M54.9 Dorsalgia, unspecified (principal); R53.1 Weakness; R26.81 Unsteadiness on feet; R00.1 Bradycardia, unspecified; I10 Essential (primary) hypertension; E78.5 Hyperlipidemia, unspecified; F17.210 Nicotine dependence, cigarettes, uncomplicated; Z91.81 History of falling; Z85.41 Personal history of malignant neoplasm of cervix uteri
CPT/HCPCS: 36415; 70450; 72125; 72128; 72131; 80048; 84484; 85025; 93005; 99284

== ENCOUNTER 2021-01-21 14:48 | Emergency (ER) | payer MEDICARE, SELFPAY ==
[2021-01-21 15:09] VITALS: BP 120/73; PULSE 68; RESP 16; TEMP 36.6; O2SAT 97; BMI 17.5
--- NOTE | 2021-01-21 15:28 | ED.GENADULT ---
HPI - General Adult General Chief complaint: Weakness Stated complaint: overdose Time Seen by Provider: 01/21/21 15:05 Source: patient and EMS Mode of arrival: EMS Limitations: other (Very soft-spoken, slow speech but comprehensible) History of Present Illness HPI narrative: 75-year-old female who was brought to the emergency department by ambulance for evaluation of severe back pain, unable to walk, unable to eat or drink. The patient states that she has chronic back pain that is gotten progressively worse over the past 3 days. She states that the pain is located in her upper and lower back. The pain is a constant, dull to sharp pain which is 10/10 at its worst. She states she is unable to stand and walk secondary to weakness. She states that she has not been able to eat or drink secondary to her weakness. She denied loss of bowel or bladder control and numbness in her extremities. The patient does take clonazepam and oxycodone for her pain. The patient states that since 01/15/2021 (6 days) she has taken 90 clonazepam pills and 21 oxycodone without any relief of her pain. The patient states she lives at home with her . The patient was seen in the emergency department yesterday with similar complaints. In reviewing the record, patient stated that she fell yesterday x2 when she was walking with her walker. The falls were witnessed by the patient's . Patient had an extensive workup including CT scans of the head, cervical spine, thoracic spine and lumbar spine. There were chronic arthritic changes found but there was no acute fractures found by the radiologist. Laboratory evaluation from yesterday was unremarkable. Patient refused to give a urine sample and refused straight cath. The provider that saw the patient yesterday recommended that the patient stay in the emergency department for case management and physical therapy evaluation however the patient refused and left against medical advice. The patient has not had a COVID-19 infection. She has not been vaccinated for COVID-19. 1655: Patient's came to the emergency department states patient did fall last night. He is concerned about taking the patient home since she continues to fall. Related Data Home Medications Medication Instructions Recorded Confirmed trazodone 100 mg PO BEDTIME 01/20/21 01/20/21 Previous Rx's Medication Instructions Recorded gabapentin 100 mg capsule 100 mg PO TID #90 cap 10/14/20 simvastatin 20 mg tablet 20 mg PO BEDTIME 90 Days #90 tab 11/28/20 mirtazapine 15 mg tablet 15 mg PO BEDTIME #30 tab 12/04/20 losartan 50 mg tablet 50 mg PO DAILY #90 tab 12/17/20 clonazepam 0.5 mg tablet 0.5 mg PO TID #90 tab 01/15/21 Allergies Allergy/AdvReac Type Severity Reaction Status Date / Time amoxicillin [AMOXICILLIN] Allergy Intermediate HIVES Verified 10/08/20 10:30 acetaminophen [Tylenol] Allergy Mild stomach Verified 10/08/20 10:30 upset penicillin V Allergy Mild Itching Verified 10/08/20 10:30 Penicillins [PENICILLINS] Allergy Mild Itching Verified 10/08/20 10:30 Eric inhibitors Allergy Unknown Unknown Uncoded 09/28/20 13:38 Clindamycin HCl AdvReac Mild Diarrhea Uncoded 09/28/20 13:38 Review of Systems Review of Systems: Yes all other systems are reviewed and are negative PMFSH Past Medical History [facility] Narrative: Past medical history: Hypertension, hyperlipidemia, depression, anxiety, chronic back pain, hyponatremia, degenerative joint disease. Social history: The patient lives at home with her . She states she smokes 2 cigarettes per per day and she has smoked for many years. She denies alcohol use. She denies drug use. Medical History Cervical cancer Chronic back pain Depression DJD (degenerative joint disease) High cholesterol HTN (hypertension) Surgical History History of Social History Social History Household Members: Spouse Alcohol intake: never Patient Tobacco Use Status: Current everyday Tobacco user Cigarettes Per Day: 9 Advance Directives: No Advance Directives Information Provided: Yes Physical Exam Vital Signs: Vital Signs: Last Vital Signs Temp 97.9 F 01/21/21 15:09 Pulse 68 01/21/21 15:09 Resp 16 01/21/21 15:09 BP 120/73 01/21/21 15:09 Pulse Ox 97 01/21/21 15:09 Body Mass Index 17.5 Const: Other: Very frail, elderly woman. She speaks in a very low, slow, soft voice her speech is comprehensible. She does not appear to be in distress. HENMT: Head: Yes normal to inspection, Yes normocephalic and Yes atraumatic Ears: external ears normal General nose exam: Normal external nose present Face and sinus: Yes normal facial exam Mouth: Normal oral and palatal mucosa present Throat: Yes posterior oropharynx normal Eyes: Periorbital: periorbital findings normal Eyelids: Yes eyelids normal Conjunctivae: conjunctivae normal Sclerae: sclerae normal Corneas: corneas normal Pupils: Equal, round and reactive pupils present Direct Ophthalmoscopy: normal light reflex Neck: Neck: Yes full ROM, Yes no lymphadenopathy, Yes no meningeal signs, Yes trachea midline, Yes supple and Yes tender (Upcr-fg-[id number] tenderness of the cervical spine) Chest: Chest palpation & inspection: normal inspection of the chest and normal palpation of entire chest wall Resp: Effort & Inspection: normal respiratory effort and able to speak in complete sentences Auscultation: clear to auscultation bilaterally Cardio: Rate: regular rate Rhythm: regular rhythm Heart sounds: S1 normal heart sound present, S2 normal heart sound present and no murmurs GI: Inspection: Yes normal to inspection Palpation (GI): Soft to palpation, nontender, no guarding, not rigid and No hepatosplenomegaly present : General: Yes no CVA tenderness Back/Spine/Pelvis: Back: no CVA tenderness Cervical Spine: other (Ejcz-eh-lmieiawe C-spine tenderness) Thoracic/Lumbar Spine: paraspinal muscle tenderness bilaterally in the mid thoracic (Sdbj-lj-vrrsvsox) and in the lower thoracic (Pnjx-yl-veqguuiw) and other (Cqlu-sr-mfgnzgff lumbar and thoracic vertebral tenderness) Skin: Other: Patient does have some breakdown of the skin in the sacral area consistent with pressure ulcers. Lesions: no lesions Rashes: no rashes Neuro: General: no meningeal signs Cranial nerves: Yes CN's II-XII intact bilaterally and Yes Equal, round and reactive pupils present Cognition (Neuro): normal cognition Motor exam (neuro): Other motor observations present (Able to move extremities against gravity, patient is weak to resistance) Extrem: General: Yes normal to inspection and Yes full ROM Psych: Appearance: well kempt Mental Status: mental status grossly normal Speech and movement: Normal speech and movement present Affect: normal affect Attitude: cooperative Thought process: Normal thought process present Thought content: Normal thought content present Course Course Course Narrative: 75-year-old female who presents emergency department for evaluation of severe upper and lower back pain, weakness, inability to walk. Patient's reports that she fell again last night. The patient states that she has not been eating and drinking well over the past several days. The patient was seen in the emergency department yesterday and had an extensive workup including CT scans of the head, cervical, thoracic and lumbar spines without any acute findings . She also had a laboratory evaluation which was unremarkable except a urine sample was not checked. The provider that saw the patient yesterday wanted the patient to stay for case management, PT evaluation and placement however the patient left against medical advise. On examination today, the patient is very frail appearing and appears weak. She does have diffuse tenderness cervical, thoracic, lumbar sacral spine and paraspinal muscles. I will repeat the patient's laboratory evaluation and obtain a urinalysis as well. The patient was ordered to get normal saline IV x1 L for dehydration and Toradol 15 mg IV for pain. If the patient is medically cleared, we will again offer case management, PT and short-term rehab placement for the patient. 1656: Patient's laboratory evaluation was unremarkable, urinalysis revealed no evidence for urinary tract infection. COVID-19 test is pending. The patient got no relief with IV Toradol. She was ordered to get morphine 2 mg IV. I did order medical reconciliation on the patient so that we can order her outpatient medications. The patient's does not want to take the patient home since he is concerned that he is unable to take care of her. The patient will be placed in physician observation and we will obtain case management consult and physical therapy consult in the morning. 1706: Physician observation started at 1706. Patient placed in physician observation because the patient need case management and physical therapy consult for her frequent falls and chronic back pain which is not controlled by her home medications. Physical examination reveals that she still was in distress secondary to her pain, lungs clear, heart exam normal, neurologic exam nonfocal. The patient's care was turned over to my colleague, Dr. Beata Marquez. I will order morphine 15 mg orally every 4 hours as needed for severe pain and Tylenol 650 mg every 4 hours for moderate pain. Medical Decision Making Lab Data Result diagrams: 01/21/21 15:55 01/21/21 15:54 Labs: Lab Results 01/21/21 01/21/21 01/21/21 Range/Units 15:54 15:54 15:54 WBC (4.8-10.8) X10*3/uL RBC (4.20-5.50) X10*6/uL Hgb (12.0-16.0) g/dl Hct (37-47) % MCV (80-98) fL MCH (27.0-33.0) pg MCHC (31.0-35.0) g/dl RDW (11.0-16.0) % Plt Count (160-400) X10*3/uL MPV (9.4-12.3) fL Immature Gran % (Auto) (0.0-0.4) % Neut % (Auto) (45-73) % Lymph % (Auto) (20-40) % Mckinley % (Auto) (2-11) % Eos % (Auto) (0-4) % Baso % (Auto) (0-2) % Lymph # (Auto) (1.2-4.9) X10*3/uL Mckinley # (Auto) (0.1-1.2) X10*3/uL Eos # (Auto) (0.0-0.4) X10*3/uL Baso # (Auto) (0.0-0.2) X10*3/uL Abs Immat Gran (auto) (0.00-0.03) X10*3/uL Absolute Neuts (auto) (2.0-8.3) X10*3/uL Absolute Nucleated RBC (0.0-0.012) X10*3/uL Nucleated RBC % (auto) (0.0-0.2) /100WBC PT 12.3 (10.8-13.0) SEC INR 1.0 (0.9-1.1) APTT 30.4 (24.1-38.0) SEC Sodium 136 (135-145) mmol/L Potassium 4.3 (3.3-5.1) mmol/L Chloride 99 (96-108) mmol/L Carbon Dioxide 29 (22-29) mmol/L Anion Gap 12 (12-20) BUN 11 (9-16) mg/dL Creatinine 1.05 (0.5-1.4) mg/dL Estim Creat Clear Calc 33.7 Estimated GFR 51 Random Glucose 119 H (60-115) mg/dL Lactic Acid 1.3 (0.5-2.0) mmol/L Calcium 9.4 (8.4-10.2) mg/dL Total Bilirubin 0.3 (0.0-1.0) mg/dL AST 12 (5-31) U/L ALT 10 (0-31) U/L Alkaline Phosphatase 55 (39-117) U/L Total Creatine Kinase 64 (26-140) U/L Troponin I High Sens (<3.5-17.0) ng/L Total Protein 5.9 L (6.5-8.0) g/dL Albumin 3.9 (3.5-5.0) g/dL Lipase 20 (8-78) U/L Urine Color Urine Appearance Urine pH (5.0-8.0) Ur Specific Crockett (1.005-1.025) Urine Protein (NEG-TRACE) MG/DL Urine Glucose (UA) (NEG) MG/DL Urine Ketones (NEG) MG/DL Urine Blood (NEG) Urine Nitrite (NEG) Ur Leukocyte Esterase (NEG) Urine RBC (0) /HPF Urine WBC (0-4) /HPF Ur Squamous Epith Cells /LPF Urine Bacteria /LPF 01/21/21 01/21/21 01/21/21 Range/Units 15:55 15:55 15:55 WBC 6.0 (4.8-10.8) X10*3/uL RBC 3.87 L (4.20-5.50) X10*6/uL Hgb 11.5 L (12.0-16.0) g/dl Hct 34.2 L (37-47) % MCV 88.4 (80-98) fL MCH 29.7 (27.0-33.0) pg MCHC 33.6 (31.0-35.0) g/dl RDW 14.1 (11.0-16.0) % Plt Count 204 (160-400) X10*3/uL MPV 8.5 L (9.4-12.3) fL Immature Gran % (Auto) 0.2 (0.0-0.4) % Neut % (Auto) 63.0 (45-73) % Lymph % (Auto) 25.8 (20-40) % Mckinley % (Auto) 7.3 (2-11) % Eos % (Auto) 3.0 (0-4) % Baso % (Auto) 0.7 (0-2) % Lymph # (Auto) 1.6 (1.2-4.9) X10*3/uL Mckinley # (Auto) 0.4 (0.1-1.2) X10*3/uL Eos # (Auto) 0.2 (0.0-0.4) X10*3/uL Baso # (Auto) 0.0 (0.0-0.2) X10*3/uL Abs Immat Gran (auto) 0.01 (0.00-0.03) X10*3/uL Absolute Neuts (auto) 3.8 (2.0-8.3) X10*3/uL Absolute Nucleated RBC 0.000 (0.0-0.012) X10*3/uL Nucleated RBC % (auto) 0.0 (0.0-0.2) /100WBC PT (10.8-13.0) SEC INR (0.9-1.1) APTT (24.1-38.0) SEC Sodium (135-145) mmol/L Potassium (3.3-5.1) mmol/L Chloride (96-108) mmol/L Carbon Dioxide (22-29) mmol/L Anion Gap (12-20) BUN (9-16) mg/dL Creatinine (0.5-1.4) mg/dL Estim Creat Clear Calc Estimated GFR Random Glucose (60-115) mg/dL Lactic Acid (0.5-2.0) mmol/L Calcium (8.4-10.2) mg/dL Total Bilirubin (0.0-1.0) mg/dL AST (5-31) U/L ALT (0-31) U/L Alkaline Phosphatase (39-117) U/L Total Creatine Kinase (26-140) U/L Troponin I High Sens 4.3 (<3.5-17.0) ng/L Total Protein (6.5-8.0) g/dL Albumin (3.5-5.0) g/dL Lipase (8-78) U/L Urine Color YELLOW Urine Appearance CLEAR Urine pH 6.5 (5.0-8.0) Ur Specific Crockett <= 1.005 (1.005-1.025) Urine Protein NEG (NEG-TRACE) MG/DL Urine Glucose (UA) NEG (NEG) MG/DL Urine Ketones NEG (NEG) MG/DL Urine Blood 2+ H (NEG) Urine Nitrite NEG (NEG) Ur Leukocyte Esterase NEG (NEG) Urine RBC 5-9 H (0) /HPF Urine WBC 1-4 (0-4) /HPF Ur Squamous Epith Cells 1+ /LPF Urine Bacteria NONE /LPF Discharge Plan Discharge Prescriptions: No Action gabapentin 100 mg capsule 100 mg PO TID Qty: 90 RF: 8 simvastatin 20 mg tablet 20 mg PO BEDTIME 90 Days Qty: 90 RF: 8 mirtazapine 15 mg tablet 15 mg PO BEDTIME Qty: 30 RF: 5 losartan 50 mg tablet 50 mg PO DAILY Qty: 90 RF: 8 clonazepam [Klonopin] 0.5 mg tablet 0.5 mg PO TID Qty: 90 RF: 5 trazodone 100 mg tablet 100 mg PO BEDTIME RF: 0
[2021-01-21] MEDS: Ketorolac Tromethamine 30 MG/ML VIAL 15 MG IVPUSH (15:30)
[2021-01-21] MEDS: 0.9 % Sodium Chloride 1,000 ML 999 ML IV (15:31)
[2021-01-21 16:02] LABS: MANUAL DIFF FLAG NO
[2021-01-21 16:04] LABS: Basophils Percent Auto 0.7 % (0-2); Eosinophils Absolute Auto 0.2 X10*3/uL (0.0-0.4); Hematocrit 34.2 % (37-47); Hemoglobin 11.5 g/dl (12.0-16.0); Imm Gran Abs Auto 0.01 X10*3/uL (0.00-0.03); Imm Gran Pct Auto 0.2 % (0.0-0.4); Lymphocytes Absolute Auto 1.6 X10*3/uL (1.2-4.9); Lymphocytes Percent Auto 25.8 % (20-40); Mean Corpuscular HGB Conc 33.6 g/dl (31.0-35.0); Mean Corpuscular Hemoglobin 29.7 pg (27.0-33.0); Mean Corpuscular Volume 88.4 fL (80-98); Mean Platelet Volume 8.5 fL (9.4-12.3); Monocytes Absolute Auto 0.4 X10*3/uL (0.1-1.2); Monocytes Percent Auto 7.3 % (2-11); Neutrophils Absolute Auto 3.8 X10*3/uL (2.0-8.3); Platelet Count 204 X10*3/uL (160-400); Red Blood Count 3.87 X10*6/uL (4.20-5.50); Red Cell Distribution Width 14.1 % (11.0-16.0)
[2021-01-21 16:05] LABS: Glucose Urine UA NEG (NEG); Leukocyte Esterase Urine NEG (NEG); Nitrite Urine NEG (NEG); PH 6.5 (5.0-8.0); Specific Gravity - Urine <= 1.005 (1.005-1.025); Urine Blood 2+ (NEG); Urine Ketones NEG (NEG); Urine Protein NEG (NEG-TRACE)
[2021-01-21 16:06] LABS: Appearance Urine CLEAR; Color Urine YELLOW
[2021-01-21 16:11] LABS: Prothrombin Time 12.3 SEC (10.8-13.0)
[2021-01-21 16:13] LABS: Squamous Epithelial Cell Urine 1+ /LPF
[2021-01-21 16:14] LABS: Partial Thromboplastin Time 30.4 SEC (24.1-38.0)
[2021-01-21 16:24] LABS: Lactic Acid 1.3 mmol/L (0.5-2.0)
[2021-01-21 16:28] LABS: Alanine Aminotransferase 10 U/L (0-31); Albumin Level 3.9 g/dL (3.5-5.0); Alkaline Phosphatase 55 U/L (39-117); Anion Gap 12 (12-20); Aspartate Amino Transferase 12 U/L (5-31); Bilirubin Total 0.3 mg/dL (0.0-1.0); Blood Urea Nitrogen 11 mg/dL (9-16); Calcium 9.4 mg/dL (8.4-10.2); Carbon Dioxide 29 mmol/L (22-29); Chloride 99 mmol/L (96-108); Creatinine Clr Calc Pharmacy 33.7; Estimated Glomerular Filt Rate 51; Glucose Random 119 mg/dL (60-115); Lipase 20 U/L (8-78); Potassium 4.3 mmol/L (3.3-5.1); Sodium 136 mmol/L (135-145); Total Protein 5.9 g/dL (6.5-8.0)
[2021-01-21 16:35] LABS: Troponin-I High Sensitivity 4.3 ng/L (<3.5-17.0)
[2021-01-21] MEDS: Morphine Sulfate 2 MG/ML CARTRIDGE IVPUSH (16:58)
[2021-01-21] MEDS: Morphine Sulfate Immed Release 15 MG TABLET PO ×2 (17:30→22:03)
[2021-01-21] MEDS: Acetaminophen 325 MG TABLET 650 MG PO (17:30)
[2021-01-21 17:35] VITALS: BP 154/69; PULSE 63; RESP 16; O2SAT 95
[2021-01-21 18:03] LABS: COVID-19 Test Negative (Negative)
--- NOTE | 2021-01-21 18:41 | PC.NURSE ---
patient given pillow. lights dimmed. patient complains of pain even after medication. med aware. will continue to offer ancillary support.
[2021-01-21 19:15] VITALS: BP 143/70; PULSE 62; RESP 17; TEMP 36.5; O2SAT 97
[2021-01-21] MEDS: LORazepam 1 MG TABLET 2 MG PO (19:17)
--- NOTE | 2021-01-21 19:30 | PC.NURSE ---
Pt aaox4, resting on stretcher in NAD, breathing with ease on RA. Pt moaning/groaning, reporting 9/10 low back pain. Pt also requesting meds for sleep. This RN informs pt that she is to be medicated with ativan per provider order which should help her sleep, and may also help her pain. Pt requesting morphine. This RN explains that pt is not due for morphine at this time per q4h PRN order. Pt expresses understanding. This RN asks pt if she would like to be repositioned, this RN raises head of bed slightly per pt request. Pt makes no other needs known at this time. Stretcher is in low locked position, rails raised, call brown within reach.
[2021-01-21 20:07] VITALS: BP 155/70; PULSE 62; RESP 16; TEMP 36.4; O2SAT 99
--- NOTE | 2021-01-21 20:08 | PC.NURSE ---
Emeli patel Can I get some help in here? The patient is naked on the floor. This RN to bedside, finds pt sitting, without hospital gown on, on floor in doorway. Pt states I fell, I was trying to get out of bed to walk home to [place]. RN finds stretcher with both side rails up. Upon further questioning, pt states I climbed over the side. Pt states I fell on my side. Pt denies head strike, denies new injury/pain. This RN notes new injury to pt. Pt requesting sleeping medication, this RN informs pt I medicated you with ativan. Pt states No, you never did. I need meds. I have too much pain. Pt states I needed water, I was hollering for water. This RN shows pt the cup of wtaer that was left at bedside where pt had requested it be left for easy access. Pt returned to bed, VS assessed without incidence. Pt able to follow commands, move all extremities independently. Dr Marquez made aware of finding of pt on hospital floor
[2021-01-21 21:55] VITALS: BP 121/53; PULSE 54; RESP 14; O2SAT 95
[2021-01-21 22:02] VITALS: BP 130/56; PULSE 52; RESP 17; O2SAT 97
--- NOTE | 2021-01-21 22:18 | PC.NURSE ---
2015 this rn and austin in room to speak with patient regarding reasonal expectations for visits to room and reorientation to plan of care and medication schedule.
--- NOTE | 2021-01-21 22:20 | PC.NURSE ---
This RN had Chris Garibay RN at bedside to witness administration of morphine as following admin of ativan previously in night, pt denies having rec'd medication.
--- NOTE | 2021-01-21 23:07 | PC.NURSE ---
Maribel Dang RN contacted [employer] supervisor and requested camera to be set up for pt observation.
[2021-01-22] VITALS (15 sets, daily range): BP systolic 120–159; BP diastolic 48–87; PULSE 20–58; RESP 12–18; TEMP 36.2–36.6; O2SAT 95–99
[2021-01-22] MEDS: Morphine Sulfate Immed Release 15 MG TABLET PO ×3 (02:10→14:29)
--- NOTE | 2021-01-22 02:14 | PC.NURSE ---
Chris Garibay RN at bedside to witness this RN administer morphine per MAR to pt
--- NOTE | 2021-01-22 07:00 | PC.NURSE ---
First contact with patient. Pt is sitting up in bed after using bedpan. Pt voided x1. Pt is alert, oriented and in no acute distress. Pt complains of neck pain that she says is chronic and rates pain a 9/10. Respirations are even and nonlabored
--- NOTE | 2021-01-22 07:11 | PC.NURSE ---
Morphine sulfate 15 mg po given for patient complaint of pain. Pt served breakfast tray
[2021-01-22] MEDS: oxyCODONE HCl Immed Release 5 MG TABLET 10 MG PO (09:55)
[2021-01-22] MEDS: Losartan Potassium 50 MG TABLET PO (10:05)
--- NOTE | 2021-01-22 10:46 | MHC.CM.ED ---
Received case management consult from Dr Heaton overnight. Physical therapy eval completed. Short term rehab is recommended. Attempted to meet with patient. Patient currently sleeping. Attempted to speak with patient's /HCP via telephone at [phone]. Left message requesting return telephone call. Continue to monitor for d/c needs.
[2021-01-22] MEDS: clonazePAM 0.5 MG TABLET PO (12:56)
--- NOTE | 2021-01-22 13:01 | MHC.CM.ED ---
Received return telephone call from patient's , Jay. Patient lives with , ambulates with a walker and had no services prior to coming to the hospital. PCP verified. HCP verified to be on file. Explained patient will need STR. In the past, patient has refused rehab. Jay feels patient will need rehab but wants patient to make a decision about where. Patient never received a Covid vaccine. Met with patient to discuss short term rehab. Patient has been to rehab in the past but doesn't remember where. Referral broadcasted at this time to see what beds are available. Continue to monitor for d/c needs.
--- NOTE | 2021-01-22 13:40 | PC.NURSE ---
Bedlinens changed. is in room visiting with patient. Pt is alert and oriented. Pt repositions self in bed and is able to roll self from side to side, as well as sit up unassisted. While changing bedlinens, red area noted on buttocks with small breakdown noted. pt encouraged to position on her side but patient refuses. brought patient food to eat.
--- NOTE | 2021-01-22 15:00 | PC.NURSE ---
Pt is asleep in bed currently. respirations are even and nonlabored
--- NOTE | 2021-01-22 15:07 | MHC.CM.ED ---
[facility] only facility in the area that is contracted with patient's insurance. Attempted to discuss with patient. Patient currently sleeping. Attempted to speak to patient's /HCP, Jay via telephone at [phone]. Left message requesting return telephone call. [facility] is in the process of obtaining insurance auth. I anticipate patient will remain in the ER overnight. Continue to monitor for d/c needs.
--- NOTE | 2021-01-22 15:34 | PC.NURSE ---
THIS PCT AND PCT CARY ASSIST PATIENT WITH BEDPAN ,PATIENT VOID LARGE AMOUNT ,PATIENT REPORT HAVING PAIN IN HER BACK AND NECK RN JOSE A AWARE .
--- NOTE | 2021-01-22 16:00 | PC.NURSE ---
Patient is sitting up in bed with remote to tv in hand. No distress noted
--- NOTE | 2021-01-22 17:31 | PC.NURSE ---
Pt sitting up in bed talking on the phone. Pt is alert at this time and in no acute distress. Pt continues to reposition self in bed but refuses to lay on her side.
--- NOTE | 2021-01-22 17:34 | PC.NURSE ---
pt sitting up in bed with tv remote in hand. pt is in no distress
--- NOTE | 2021-01-22 19:56 | PC.NURSE ---
PT AWAKE AND SITTING UP IN BED WATCHING TV. PT DENIES ANY COMPLAINTS. CAMERA IN ROOM MONITORING PT. WILL CONTINUE TO MONITOR PT.
[2021-01-22] MEDS: traZODone HCL 100 MG TABLET PO (21:40)
[2021-01-22] MEDS: Atorvastatin Calcium 10 MG TABLET PO (21:40)
--- NOTE | 2021-01-22 22:00 | PC.NURSE ---
PT IS CONSTANTLY RINGING CALL TORRES, PT REQUESTING CHANGE CHANNELS, BLANKETS, AND WANTING TO GO HOME . WILL CONTINUE TO MONITOR PT.
[2021-01-23] VITALS (7 sets, daily range): BP systolic 132–168; BP diastolic 51–84; PULSE 58–82; RESP 16–18; TEMP 35.8; O2SAT 97–98
[2021-01-23] MEDS: OLANZapine 10 MG TABLET PO (00:37)
--- NOTE | 2021-01-23 01:34 | PC.NURSE ---
PT RESTING IN HOSPITAL BED IN NAD. PT DENIES COMPLAINTS ASKING FOR BLANKETS. PT REPEATING I WANA GO HOME , PT AWAITING FOR BED SEARCH. MONITOR ON PT FOR SAFETY, BED IN LOW LOCKED POSITION, SIDE RAILS UP X 2, CALL TORRES W/I REACH. WILL CONTINUE TO MONITOR PT.
--- NOTE | 2021-01-23 03:00 | PC.NURSE ---
PT SLEEPING WITH MONITOR AT BEDSIDE WITH PT FOR SAFETY. PT IN NAD AND RESPIRATIONS EASY, N/L.
--- NOTE | 2021-01-23 05:15 | PC.NURSE ---
PT WAKES UP AND IS CONCERNED ABOUT HER SOCKS. PERIWICK IN PLACE AND DRAINING CLEAR YELLOW URINE IN CANISTER. PT TAKES HER BLANKETS OFF AND C/O BEING COLD. PT CONTINUES WITH CONFUSION AND REPEATING THE SAME QUESTIONS. PT IN NAD, BED IN LOW LOCKED POSITION, SIDE RAILS UP X 2, CALL TORRES WITHIN REACH OF PT. PT AWAITING FOR PLACEMENT AT REHAB. WILL CONTINUE TO MONITOR PT.
--- NOTE | 2021-01-23 06:53 | PC.NURSE ---
PT SLEEPING, MONITOR IN ROOM FOR PT'S SAFETY. WILL CONTINUE TO MONITOR PT.
[2021-01-23] MEDS: Losartan Potassium 50 MG TABLET PO (07:30)
[2021-01-23] MEDS: oxyCODONE HCl Immed Release 5 MG TABLET 10 MG PO (07:38)
--- NOTE | 2021-01-23 07:39 | PC.NURSE ---
Pt medicated with her morning losartan dose and also medicated for pain per request as she reports 9/10 back pain.
--- NOTE | 2021-01-23 08:20 | MHC.CM.ED ---
Patient remains in ER. [facility] is the only facility in the area that has offered a bed. They are in the process of obtaining insurance auth. Continue to monitor for d/c needs.
--- NOTE | 2021-01-23 09:14 | MHC.CM.ED ---
Met with patient and . Updated about waiting for insurance auth for Chema Pollard. Both verbalize understanding and are agreeable to discharge plan. Continue to monitor for d/c needs.
--- NOTE | 2021-01-23 09:57 | MHC.CM.ED ---
Insurance auth has been obained by Chema Pollard. Patient can leave at 11am. [facility] booked. Med nec with chart. Attempted to let patient know. Patient currently sleeping. Patient's /HCP Jay made aware via telephone at [phone]. Shantel FULLER and Paula LABOY aware. Continue to monitor for d/c needs.
--- NOTE | 2021-01-23 10:43 | PC.NURSE ---
Pt washed and new purewick applied. Pt made aware of her transfer to [facility] at 11am. Report called to recieving nurse at this time.
[2021-01-23] MEDS: Morphine Sulfate Immed Release 15 MG TABLET PO (11:02)
--- NOTE | 2021-01-23 11:14 | PC.NURSE ---
Report given to EMS. Pt medicated per emar for back pain.
== END 2021-01-23 11:30 | disposition skilled nursing facility (03) ==
PROVIDERS: Emergency Provider Emergency Medicine Emergency Medical Services; PCP Internal Medicine
DX: G89.29 Other chronic pain (principal); M54.5 Low back pain; M54.6 Pain in thoracic spine; R53.1 Weakness; Z20.822 Contact with and (suspected) exposure to COVID-19; Z91.81 History of falling
CPT/HCPCS: 36415; 80053; 81001; 82550; 83605; 83690; 84484; 85025; 85610; 85730; 87635; 96361; 96374; 96375; 97162; 99285; J1885; J2270

== ENCOUNTER 2021-01-24 07:21 | Outpatient (REF) | payer MEDICARE, SELFPAY ==
[2021-01-24 07:30] LABS: MANUAL DIFF FLAG NO
[2021-01-24 07:41] LABS: Basophils Absolute Auto 0.1 X10*3/uL (0.0-0.2); Basophils Percent Auto 1.2 % (0-2); Eosinophils Absolute Auto 0.3 X10*3/uL (0.0-0.4); Eosinophils Percent Auto 8.3 % (0-4); Hematocrit 33.4 % (37-47); Hemoglobin 11.4 g/dl (12.0-16.0); Imm Gran Abs Auto 0.01 X10*3/uL (0.00-0.03); Imm Gran Pct Auto 0.2 % (0.0-0.4); Lymphocytes Absolute Auto 1.3 X10*3/uL (1.2-4.9); Lymphocytes Percent Auto 31.3 % (20-40); Mean Corpuscular HGB Conc 34.1 g/dl (31.0-35.0); Mean Corpuscular Hemoglobin 29.6 pg (27.0-33.0); Mean Corpuscular Volume 86.8 fL (80-98); Mean Platelet Volume 8.5 fL (9.4-12.3); Monocytes Absolute Auto 0.4 X10*3/uL (0.1-1.2); Monocytes Percent Auto 8.8 % (2-11); Neutrophils Absolute Auto 2.1 X10*3/uL (2.0-8.3); Neutrophils Percent Auto 50.2 % (45-73); Platelet Count 168 X10*3/uL (160-400); Red Blood Count 3.85 X10*6/uL (4.20-5.50); Red Cell Distribution Width 14.2 % (11.0-16.0); White Blood Count 4.1 X10*3/uL (4.8-10.8)
[2021-01-24 07:58] LABS: Alanine Aminotransferase 9 U/L (0-31); Albumin Level 3.7 g/dL (3.5-5.0); Alkaline Phosphatase 55 U/L (39-117); Anion Gap 11 (12-20); Aspartate Amino Transferase 14 U/L (5-31); Bilirubin Total 0.7 mg/dL (0.0-1.0); Blood Urea Nitrogen 9 mg/dL (9-16); Calcium 9.3 mg/dL (8.4-10.2); Carbon Dioxide 28 mmol/L (22-29); Chloride 104 mmol/L (96-108); Estimated Glomerular Filt Rate > 60; Glucose Random 71 mg/dL (60-115); Potassium 4.3 mmol/L (3.3-5.1); Sodium 139 mmol/L (135-145); Total Protein 5.6 g/dL (6.5-8.0)
== END 2021-01-24 07:22 | disposition home or self-care (01) ==
LOC: HO.MMNH2L 07:21
PROVIDERS: Visit Provider Family Medicine
DX: I10 Essential (primary) hypertension (principal)
CPT/HCPCS: 36415; 80053; 85025

== ENCOUNTER 2021-01-28 05:00 | Outpatient (REF) | payer MEDICARE, SELFPAY ==
[2021-01-28 07:42] LABS: Hematocrit 35.1 % (37-47); Hemoglobin 11.5 g/dl (12.0-16.0); Mean Corpuscular HGB Conc 32.8 g/dl (31.0-35.0); Mean Corpuscular Hemoglobin 29.4 pg (27.0-33.0); Mean Corpuscular Volume 89.8 fL (80-98); Mean Platelet Volume 9.2 fL (9.4-12.3); Platelet Count 194 X10*3/uL (160-400); Red Blood Count 3.91 X10*6/uL (4.20-5.50); Red Cell Distribution Width 14.8 % (11.0-16.0); White Blood Count 6.5 X10*3/uL (4.8-10.8)
[2021-01-28 08:31] LABS: Anion Gap 14 (12-20); Blood Urea Nitrogen 6 mg/dL (9-16); Calcium 9.3 mg/dL (8.4-10.2); Carbon Dioxide 28 mmol/L (22-29); Chloride 101 mmol/L (96-108); Estimated Glomerular Filt Rate 51; Glucose Random 81 mg/dL (60-115); Potassium 4.2 mmol/L (3.3-5.1); Sodium 139 mmol/L (135-145)
== END 2021-01-28 05:01 | disposition home or self-care (01) ==
LOC: HO.MMNH2L 05:00
PROVIDERS: Visit Provider Family Medicine
DX: I10 Essential (primary) hypertension (principal)
CPT/HCPCS: 36415; 80048; 85027

== ENCOUNTER 2021-02-04 00:24 | Outpatient (REF) | payer MEDICARE, SELFPAY | END 2021-02-04 00:25 | disposition home or self-care (01) | LOC: HO.MMNH2L 00:24 | PROVIDERS: Visit Provider Family Medicine | DX: Z13.89 Encounter for screening for other disorder (principal) ==

== ENCOUNTER 2021-02-04 14:24 | Emergency (ER) | payer MEDICARE, SELFPAY ==
--- NOTE | ~2021-02-04 | XR_ITS ---
EXAMINATION: XR CHEST CLINICAL INFORMATION: Weakness, shortness of breath, possible pneumonia. COMPARISON: Chest radiographs 09/28/2020, 09/20/2019 TECHNIQUE: Portable upright AP view of the chest was obtained. FINDINGS: There is hyperinflation similar to prior studies along with bibasilar nipple shadows and densities overlying the chest from the calcified costocartilage. There is suspicion of subtle groundglass opacity left lower zone which may represent early infiltrate. Otherwise, there is no lobar or segmental airspace consolidation and no vascular congestion or effusion. The costophrenic sulci are clear. There is skinfold artifact overlying right midlung zone. No pneumothorax or pneumomediastinum. The heart is normal in size and the hilar and mediastinal contours are normal. No acute bony abnormality. XR/XR chest 1V IMPRESSION: Suspect subtle groundglass opacity left base, possible early infiltrate. Lungs otherwise clear.
[2021-02-04 14:36] VITALS: BP 150/75; PULSE 77; RESP 21; TEMP 36.6; O2SAT 97; BMI 18.2
--- NOTE | 2021-02-04 14:45 | PC.NURSE ---
has arrived and is at bedside. states he last gave patient her oxycodone at 7am. Spouse also states that patient walks and will go get her own medication.
--- NOTE | 2021-02-04 14:55 | ECG_ITS ---
Test Reason : ALTER MENTAL Blood Pressure : / mmHG Vent. Rate : 076 BPM Atrial Rate : 076 BPM P-R Int : 174 ms QRS Dur : 082 ms QT Int : 366 ms P-R-T Axes : 071 061 065 degrees QTc Int : 411 ms Normal sinus rhythm Normal ECG When compared with ECG of 20-JAN-2021 11:14, No significant change was found Referred By: Darrion Heaton Electronically Signed By:VARSHA MORRELL
[2021-02-04 15:25] LABS: MANUAL DIFF FLAG NO
[2021-02-04 15:26] LABS: Basophils Percent Auto 0.4 % (0-2); Eosinophils Absolute Auto 0.2 X10*3/uL (0.0-0.4); Eosinophils Percent Auto 2.1 % (0-4); Hematocrit 30.2 % (37-47); Imm Gran Abs Auto 0.03 X10*3/uL (0.00-0.03); Imm Gran Pct Auto 0.4 % (0.0-0.4); Lymphocytes Absolute Auto 1.2 X10*3/uL (1.2-4.9); Lymphocytes Percent Auto 14.3 % (20-40); Mean Corpuscular HGB Conc 33.1 g/dl (31.0-35.0); Mean Corpuscular Volume 90.7 fL (80-98); Mean Platelet Volume 8.4 fL (9.4-12.3); Monocytes Absolute Auto 0.7 X10*3/uL (0.1-1.2); Monocytes Percent Auto 8.5 % (2-11); Neutrophils Absolute Auto 6.4 X10*3/uL (2.0-8.3); Neutrophils Percent Auto 74.3 % (45-73); Platelet Count 199 X10*3/uL (160-400); Red Blood Count 3.33 X10*6/uL (4.20-5.50); Red Cell Distribution Width 14.5 % (11.0-16.0); White Blood Count 8.6 X10*3/uL (4.8-10.8)
[2021-02-04] MEDS: 0.9 % Sodium Chloride 1,000 ML 999 ML IV (15:39)
[2021-02-04 15:40] VITALS: BP 121/53; PULSE 74; RESP 14
--- NOTE | 2021-02-04 15:49 | PC.NURSE ---
patient is wide awake, alert and talking coherently. is at bedside. Pt does not remember getting here. Pt states she hurts in her back and neck which is a chronic problem. Pt states she wants to go home and take her own pain medications.
[2021-02-04 15:53] LABS: Alanine Aminotransferase 8 U/L (0-31); Albumin Level 3.5 g/dL (3.5-5.0); Alkaline Phosphatase 67 U/L (39-117); Anion Gap 14 (12-20); Aspartate Amino Transferase 31 U/L (5-31); Bilirubin Total 0.4 mg/dL (0.0-1.0); Blood Urea Nitrogen 17 mg/dL (9-16); Calcium 8.8 mg/dL (8.4-10.2); Carbon Dioxide 26 mmol/L (22-29); Chloride 94 mmol/L (96-108); Creatinine Clr Calc Pharmacy 18.3; Estimated Glomerular Filt Rate 24; Glucose Random 116 mg/dL (60-115); Lipase 4 U/L (8-78); Sodium 129 mmol/L (135-145); Total Protein 5.3 g/dL (6.5-8.0)
--- NOTE | 2021-02-04 16:00 | PC.NURSE ---
Patient placed on bedpan but was unable to void at this time.
--- NOTE | 2021-02-04 17:11 | ED.AMS ---
HPI - Altered Mental Status General Chief Complaint: Altered Mental Status Stated Complaint: LOW BP 75/32,LETHARGIC Time Seen by Provider: 02/04/21 14:45 Source: family (, Jay), EMS and RN notes reviewed Mode of arrival: EMS Limitations: altered mental status History of Present Illness HPI narrative: 75-year-old female who is brought to the emergency department for suspected overdose on prescription opiates. The patient's is here in the emergency department. He states that the patient was sleeping and when the visiting nurse checked in on the patient, the patient had a low blood pressure and was difficult to wake up. An ambulance was called. When the paramedics arrived, they were concerned that the patient had pinpoint pupils with a slow respiratory rate therefore they administered Narcan 1 mg IV, normal saline bolus 250 mg IV in the patient woke up and her vital signs improved after this treatment. The states that the patient does take oxycodone for her chronic pain and he believes that she took a dose at 7:00 a.m., he is not certain if she has taken more doses throughout the day. According to the , the patient was not ill in any way prior to the visiting nurse finding the patient unresponsive. He states that she has not had fever, chills, cough, chest pain, abdominal pain, nausea or vomiting. Related Data Home Medications Medication Instructions Recorded Confirmed clonazepam 0.5 mg PO TID PRN 01/22/21 01/22/21 gabapentin 1 cap PO TID 01/22/21 01/22/21 losartan 50 mg PO DAILY 01/22/21 01/22/21 mirtazapine 1 tab PO BEDTIME 01/22/21 01/22/21 silver sulfadiazine 1 applic TOPICAL DAILY 01/22/21 01/22/21 simvastatin 20 mg PO BEDTIME 01/22/21 01/22/21 trazodone 100 mg PO BEDTIME 01/22/21 01/22/21 Previous Rx's Medication Instructions Recorded clonazepam 0.5 mg PO TID 3 Days #9 tab 01/23/21 oxycodone 10 mg PO TID PRN 3 Days #9 tab 01/23/21 oxycodone 10 mg tablet 10 mg PO TID PRN #1 tab 01/23/21 Allergies Allergy/AdvReac Type Severity Reaction Status Date / Time amoxicillin [AMOXICILLIN] Allergy Intermediate HIVES Verified 01/22/21 00:07 acetaminophen [Tylenol] Allergy Mild stomach Verified 01/22/21 00:07 upset penicillin V Allergy Mild Itching Verified 01/22/21 00:07 Penicillins [PENICILLINS] Allergy Mild Itching Verified 01/22/21 00:07 Eric inhibitors Allergy Unknown Unknown Uncoded 01/22/21 00:07 Clindamycin HCl AdvReac Mild Diarrhea Uncoded 01/22/21 00:07 Review of Systems Review of Systems: Yes Unobtainable due to mental status Neurologic: Reports Abnormal speech present COUNTS INCLUDE 234 BEDS AT THE [facility] Past Medical History Medical History Cervical cancer Chronic back pain Depression DJD (degenerative joint disease) High cholesterol HTN (hypertension) Surgical History History of Social History Social History Household Members: Spouse Alcohol intake: never Patient Tobacco Use Status: Current everyday Tobacco user Cigarettes Per Day: 9 Substance Use Type Other:: home prescription narcotics Substance Use Frequency: Daily Advance Directives: No Advance Directives Information Provided: Yes Physical Exam Vital Signs: Vital Signs: Last Vital Signs Temp 97.9 F 02/04/21 14:36 Pulse 74 02/04/21 15:40 Resp 14 02/04/21 15:40 BP 121/53 L 02/04/21 15:40 Pulse Ox 97 02/04/21 14:36 Body Mass Index 18.2 Const: General: cooperative Orientation/consciousness: oriented to person and oriented to place Limitations: no limitations HENMT: Head: Yes normal to inspection, Yes normocephalic and Yes atraumatic Ears: external ears normal General nose exam: Normal external nose present Face and sinus: Yes normal facial exam Mouth: Normal oral and palatal mucosa present Throat: Yes posterior oropharynx normal Eyes: Periorbital: periorbital findings normal Eyelids: Yes eyelids normal Conjunctivae: conjunctivae normal Sclerae: sclerae normal Corneas: corneas normal Pupils: Equal, round and reactive pupils present Direct Ophthalmoscopy: normal light reflex Neck: Neck: Yes full ROM, Yes no lymphadenopathy, Yes no meningeal signs, Yes trachea midline and Yes supple Chest: Chest palpation & inspection: normal inspection of the chest and normal palpation of entire chest wall Resp: Effort & Inspection: normal respiratory effort and able to speak in complete sentences Auscultation: clear to auscultation bilaterally Cardio: Rate: regular rate Rhythm: regular rhythm Heart sounds: S1 normal heart sound present, S2 normal heart sound present and no murmurs GI: Inspection: Yes normal to inspection Palpation (GI): Soft to palpation, nontender, no guarding, not rigid and No hepatosplenomegaly present : General: Yes no CVA tenderness Back/Spine/Pelvis: Back: no CVA tenderness Cervical Spine: normal cervical lordosis Thoracic/Lumbar Spine: thoracic and lumbar spine normal to inspection Skin: Lesions: no lesions Rashes: no rashes Wounds: no wounds Neuro: General: oriented to person, oriented to place and no meningeal signs Cranial nerves: Yes CN's II-XII intact bilaterally and Yes Equal, round and reactive pupils present Cognition (Neuro): normal cognition Speech: Abnormal speech present Motor exam (neuro): 5/5 motor strength present throughout Extrem: General: Yes normal to inspection and Yes full ROM Psych: Mental Status: mental status grossly normal Speech and movement: Normal speech and movement present Affect: normal affect Attitude: cooperative Thought process: Normal thought process present Thought content: Normal thought content present Course Course Course Narrative: 75-year-old female who presented to emergency department for evaluation of altered level of consciousness and hypertension which improved after the paramedics administered intravenous Narcan an IV fluid bolus. The patient was awake and alert on presentation in her examination was unremarkable. Laboratory evaluation revealed mild anemia with an H&H of 10 and 30 which is chronic. Patient's electrolytes did reveal a low sodium, and low chloride of 129 and 94. Chest x-ray revealed left lower lobe ground-glass appearance which the radiologist felt could be consistent with early pneumonia however at this time I do not think patient is sitting signs of pneumonia. It is possible that she may have an aspiration pneumonitis I did discuss this with the patient's . The patient's will be given intranasal Narcan rescue dose to take home. The patient was given verbal and printed instructions prior to discharge. The patient was advised to follow-up with their PCP in 2 days and to return to the emergency department if there symptoms get worse or if they develop any new symptoms that are concerning to them MDM - Altered Mental Status Lab Data Result diagrams: 02/04/21 15:20 02/04/21 15:20 Labs: Lab Results 02/04/21 02/04/21 Range/Units 15:20 15:20 WBC 8.6 (4.8-10.8) X10*3/uL RBC 3.33 L (4.20-5.50) X10*6/uL Hgb 10.0 L (12.0-16.0) g/dl Hct 30.2 L (37-47) % MCV 90.7 (80-98) fL MCH 30.0 (27.0-33.0) pg MCHC 33.1 (31.0-35.0) g/dl RDW 14.5 (11.0-16.0) % Plt Count 199 (160-400) X10*3/uL MPV 8.4 L (9.4-12.3) fL Immature Gran % (Auto) 0.4 (0.0-0.4) % Neut % (Auto) 74.3 H (45-73) % Lymph % (Auto) 14.3 L (20-40) % [place] % (Auto) 8.5 (2-11) % Eos % (Auto) 2.1 (0-4) % Baso % (Auto) 0.4 (0-2) % Lymph # (Auto) 1.2 (1.2-4.9) X10*3/uL [place] # (Auto) 0.7 (0.1-1.2) X10*3/uL Eos # (Auto) 0.2 (0.0-0.4) X10*3/uL Baso # (Auto) 0.0 (0.0-0.2) X10*3/uL Abs Immat Gran (auto) 0.03 (0.00-0.03) X10*3/uL Absolute Neuts (auto) 6.4 (2.0-8.3) X10*3/uL Absolute Nucleated RBC 0.000 (0.0-0.012) X10*3/uL Nucleated RBC % (auto) 0.0 (0.0-0.2) /100WBC Sodium 129 L (135-145) mmol/L Potassium 5.0 (3.3-5.1) mmol/L Chloride 94 L (96-108) mmol/L Carbon Dioxide 26 (22-29) mmol/L Anion Gap 14 (12-20) BUN 17 H D (9-16) mg/dL Creatinine 2.02 H (0.5-1.4) mg/dL Estim Creat Clear Calc 18.3 Estimated GFR 24 Random Glucose 116 H D (60-115) mg/dL Calcium 8.8 (8.4-10.2) mg/dL Total Bilirubin 0.4 (0.0-1.0) mg/dL AST 31 D (5-31) U/L ALT 8 (0-31) U/L Alkaline Phosphatase 67 D (39-117) U/L Total Protein 5.3 L (6.5-8.0) g/dL Albumin 3.5 (3.5-5.0) g/dL Lipase 4 L (8-78) U/L ECG Data ECG #1: Attestation: I personally reviewed and interpreted this ECG as follows: Interpretation: 1509: Normal sinus rhythm with a rate of 76, normal PA interval, QRS duration and QTC interval, inverted T-wave in the 1, no ST segment elevation, no ST segment depression, no PACs, no PVCs. This is a normal EKG. Critical Care Time Critical Care Time Critical Care Time: Yes Total Critical Care Time: 40 Attestation: Critical Care: The patient was critically ill with a high probability of imminent or life threatening deterioration. I spent greater than 30 minutes of discontinuous time evaluating the patient,delivering critical care at the bedside, discussing and evaluating pertinent data with consultants. Critical care time does not include time spent performing separately billable procedures or teaching. Total time spent performing critical care was 40 minutes. Discharge Plan Discharge Clinical Impression: Acute hypotension Opiate overdose Qualifiers: Encounter type: initial encounter Injury intent: accidental or unintentional Qualified Code(s): T40.601A - Poisoning by unspecified narcotics, accidental (unintentional), initial encounter Patient Disposition: Home, Self-Care Instructions: Adult Overdose (ED) Additional Instructions: Your presentation is consistent with an unintentional overdose on your prescription narcotic medications. You should take these medications as prescribed. I am sending you home with a Narcan intranasal rescue pack. Your should administer this Narcan intranasally if you become an response syndrome again. I do not think that you have pneumonia at this time however if you develop fever, chills, chest pain, shortness of breath then you should return to the emergency department for re-evaluation for possible pneumonia. Follow-up with your doctor in 2 days. Please return to the emergency department if your symptoms get worse or if you develop any symptoms that are concerning to you. Prescriptions: No [facility] oxycodone 10 mg tablet 10 mg PO TID PRN (Reason: Pain) Qty: 1 RF: 0 losartan 50 mg tablet 50 mg PO DAILY RF: 0 silver sulfadiazine 1 % cream 1 applic topical DAILY RF: 0 clonazepam 0.5 mg tablet 0.5 mg PO TID PRN (Reason: Anxiety) RF: 0 trazodone 100 mg tablet 100 mg PO BEDTIME RF: 0 simvastatin 20 mg tablet 20 mg PO BEDTIME RF: 0 mirtazapine 15 mg tablet 1 tab PO BEDTIME RF: 0 gabapentin 100 mg capsule 1 cap PO TID RF: 0 oxycodone 10 mg tablet 10 mg PO TID PRN (Reason: pain, severe) 3 Days Qty: 9 RF: 0 clonazepam 0.5 mg tablet 0.5 mg PO TID 3 Days Qty: 9 RF: 0 Interventions: ED Discharge Assessment Last Done: 02/04/21 17:52 Discharge Date/Time: 02/04/21 17:52
--- NOTE | 2021-02-04 17:15 | PC.NURSE ---
Doctor at bedside talking with patient and spouse
[2021-02-04] MEDS: Naloxone HCl Nasal TAKE HOME 4 MG SPRAY NOSTRILALT (17:50)
--- NOTE | 2021-02-04 17:50 | PC.NURSE ---
Intranasal narcan given to spouse with instructions on use. Spouse also highly encouraged to keep patients pain medication under lock and mcmanus and only he be the one to administer her pain medication not the patient. verbalized understanding
== END 2021-02-04 17:52 | disposition home or self-care (01) ==
PROVIDERS: Emergency Provider Emergency Medicine Emergency Medical Services; PCP Internal Medicine
DX: T40.2X1A Poisoning by other opioids, accidental (unintentional), initial encounter (principal); I95.2 Hypotension due to drugs; Y92.9 Unspecified place or not applicable; I10 Essential (primary) hypertension; E87.1 Hypo-osmolality and hyponatremia; D64.9 Anemia, unspecified
CPT/HCPCS: 36415; 71045; 80053; 83690; 85025; 93005; 96360; 99285

== ENCOUNTER → 2021-02-07 13:33 | Outpatient (BNVA) | payer MEDICARE, SELFPAY | PROVIDERS: Visit Provider Nurse Practitioner Psychiatric/Mental Health | DX: F11.90 Opioid use, unspecified, uncomplicated (principal) | CPT/HCPCS: 99212 ==

== ENCOUNTER → 2021-02-14 11:05 | Outpatient (BNVA) | payer MEDICARE, SELFPAY | PROVIDERS: Visit Provider Nurse Practitioner Psychiatric/Mental Health | DX: F11.20 Opioid dependence, uncomplicated (principal) | CPT/HCPCS: 80305; 99212 ==

== ENCOUNTER → 2021-02-21 10:32 | Outpatient (BNVA) | payer MEDICARE, SELFPAY | PROVIDERS: Visit Provider Nurse Practitioner Psychiatric/Mental Health | DX: F11.99 Opioid use, unspecified with unspecified opioid-induced disorder (principal) | CPT/HCPCS: Q3014 ==

== ENCOUNTER → 2021-02-28 09:36 | Outpatient (BNVA) | payer MEDICARE, SELFPAY | PROVIDERS: Visit Provider Nurse Practitioner Psychiatric/Mental Health | DX: F11.99 Opioid use, unspecified with unspecified opioid-induced disorder (principal) | CPT/HCPCS: Q3014 ==

== ENCOUNTER → 2021-03-07 10:44 | Outpatient (BNVA) | payer MEDICARE, SELFPAY | PROVIDERS: Visit Provider Nurse Practitioner Psychiatric/Mental Health | DX: F11.99 Opioid use, unspecified with unspecified opioid-induced disorder (principal); G89.29 Other chronic pain; M54.9 Dorsalgia, unspecified; M19.90 Unspecified osteoarthritis, unspecified site; I10 Essential (primary) hypertension; E78.00 Pure hypercholesterolemia, unspecified; F17.210 Nicotine dependence, cigarettes, uncomplicated; Z88.6 Allergy status to analgesic agent; Z88.1 Allergy status to other antibiotic agents; Z88.0 Allergy status to penicillin; Z88.8 Allergy status to other drugs, medicaments and biological substances | CPT/HCPCS: Q3014 ==

== ENCOUNTER → 2021-03-28 10:31 | Outpatient (BNVA) | payer MEDICARE, SELFPAY | PROVIDERS: Visit Provider Nurse Practitioner Psychiatric/Mental Health | DX: Z51.81 Encounter for therapeutic drug level monitoring (principal); F11.99 Opioid use, unspecified with unspecified opioid-induced disorder | CPT/HCPCS: Q3014 ==

== ENCOUNTER → 2021-04-18 10:41 | Outpatient (BNVA) | payer MEDICARE, SELFPAY | PROVIDERS: Visit Provider Nurse Practitioner Psychiatric/Mental Health | DX: F11.90 Opioid use, unspecified, uncomplicated (principal) | CPT/HCPCS: Q3014 ==

== ENCOUNTER 2021-04-23 06:14 | Emergency (ER) | payer MEDICARE, SELFPAY ==
--- NOTE | ~2021-04-23 | CT_ITS ---
EXAMINATION: CT HEAD WITHOUT CONTRAST CLINICAL INFORMATION: Acute mental status change COMPARISON: Previous head CT most recent December 2020 TECHNIQUE: Contiguous axial imaging was performed from the skull base to vertex without intravenous administration of contrast. This CT examination was performed using dose optimization techniques as appropriate, variously including the following: *Automated exposure control *Adjustment of mA and/or kV according to patient size (this includes techniques or standardized protocols for targeted exams where dose is matched to indication/reason for exam; i.e. extremities or head) *Use of iterative reconstruction technique DLP: 582 mGy-cm FINDINGS: There is no evidence of an extra-axial collection. There is no evidence of intra-axial or extra-axial hemorrhage. Ventricles and extra-axial CSF spaces are prominent suggestive of mild generalized atrophy. There is mild nonspecific periventricular white matter disease. No mass, mass effect or infarct is seen. Review of bone windows is normal. Visualized paranasal sinuses, mastoid air cells and middle ears are clear. CT/CT head/brain wo con IMPRESSION: No acute findings. Mild generalized atrophy and nonspecific periventricular white matter disease similar to previous exams.
--- NOTE | ~2021-04-23 | XR_ITS ---
EXAMINATION: XR CHEST CLINICAL INFORMATION: Altered mental status COMPARISON: 02/04/2021 TECHNIQUE: Frontal view of the chest was obtained. FINDINGS: Cardiomediastinal silhouette is stable. Calcification of the aortic arch. Lungs are hyperinflated. Chronic interstitial changes without superimposed acute process. No pleural effusion or pneumothorax. Some pleural-parenchymal scarring in the lung apices. XR/XR chest 1V IMPRESSION: COPD. No acute process.
[2021-04-23 06:30] VITALS: BP 100/50; BP 117/69; PULSE 102; PULSE 88; RESP 15; TEMP 36.5; O2SAT 98; O2SAT 99; BMI 13.4
--- NOTE | 2021-04-23 06:35 | ED.AMS ---
HPI - Altered Mental Status General Chief Complaint: Altered Mental Status Stated Complaint: AMS Time Seen by Provider: 04/23/21 06:35 Source: patient, EMS and old records reviewed Mode of arrival: EMS Limitations: altered mental status History of Present Illness MD complaint: altered mental status Onset (ago): unknown Severity: similar to previous episodes Consistency of symptoms: unknown Context: other (hx of opiate abuse in the past) Associated symptoms: denies other symptoms Related Data Home Medications Medication Instructions Recorded Confirmed gabapentin 100 mg capsule 1 cap PO TID 01/22/21 04/23/21 losartan 50 mg tablet 50 mg PO DAILY 01/22/21 04/23/21 mirtazapine 15 mg tablet 1 tab PO BEDTIME 01/22/21 04/23/21 silver sulfadiazine 1 % topical 1 applic TOPICAL DAILY 01/22/21 04/23/21 cream trazodone 100 mg tablet 100 mg PO BEDTIME PRN 01/22/21 04/23/21 simvastatin 20 mg tablet 20 mg PO BEDTIME 04/23/21 04/23/21 Previous Rx's Medication Instructions Recorded docusate sodium 100 mg capsule 100 mg PO DAILY #30 cap 03/07/21 buprenorphine 4 mg-naloxone 1 mg 1 film SUBLINGUAL TID #63 ea 04/18/21 sublingual film (Suboxone) Allergies Allergy/AdvReac Type Severity Reaction Status Date / Time amoxicillin [AMOXICILLIN] Allergy Intermediate HIVES Verified 03/22/21 09:48 acetaminophen [Tylenol] Allergy Mild stomach Verified 03/22/21 09:48 upset penicillin V Allergy Mild Itching Verified 03/22/21 09:48 Penicillins [PENICILLINS] Allergy Mild Itching Verified 03/22/21 09:48 Eric inhibitors Allergy Unknown Unknown Uncoded 01/22/21 00:07 Clindamycin HCl AdvReac Mild Diarrhea Uncoded 01/22/21 00:07 Review of Systems Review of Systems: ROS unable to be obtained due to altered mental status PMFSH Past Medical History Attestation statement: The following information was validated with the patient. Medical History Cervical cancer Chronic back pain Depression DJD (degenerative joint disease) High cholesterol HTN (hypertension) Surgical History History of Family History Family History Mother No problems noted. Father No problems noted. Social History Social History Household Members: Spouse Housing: House Alcohol intake: never Patient Tobacco Use Status: Current everyday Tobacco user Tobacco use type: Cigarette Cigarettes Per Day: 15 e-Cigarette/Vaping Use: Never Used Second Hand Smoke Exposure: No Advance Directives: Yes Advance Directives on File: Yes Advance Directives Date on File: 01/22/21 service: No Current occupational status: retired and disabled Physical Exam Vital Signs: Vital Signs: Last Vital Signs Temp 98.6 F 04/23/21 10:35 Pulse 57 04/23/21 10:35 Resp 15 04/23/21 10:35 BP 109/50 L 04/23/21 10:35 Pulse Ox 100 04/23/21 10:35 Oxygen Flow Rate 2 04/23/21 06:30 Body Mass Index 13.4 Appearance: Alert. Will not answer questions, repeatedly yelling to get water. Moderate acute distress. Eyes: Pupils equal, round and reactive to light. ENT: Pharynx normal. Neck: Normal inspection. Neck supple. CVS: Normal heart rate and rhythm. Pulses normal. Respiratory: No respiratory distress. Breath sounds normal. Abdomen: Soft and non-tender. Skin: Skin warm and dry. Normal skin color. Normal skin turgor. Extremities: No lower extremity edema. No calf ttp Neuro: Confused, yelling out, unable to redirect. No motor deficit. No sensory deficit. Course Course Course Narrative: alert and oriented x 3, no signs of infection, BP improved, + for fentanyl but patient and state that this isn't the case and not possible, Ambika Beltran to come down to speak to the patient trop flat back to baseline, GCS 15, alert and oriented x 3, stable for DC MDM - Altered Mental Status MDM Narrative Medical decision making narrative: 75 yo female with hx of substance abuse, chronic pain coming in as undifferentiated AMS - I do not see any localizing signs. I do not see trauma. At this time metabolic and infectious workup ordered. Labs and CT scan/CXR ordered, dispo per results and findings. Lab Data Result diagrams: 04/23/21 07:25 04/23/21 07:25 Labs: Lab Results 04/23/21 04/23/21 04/23/21 Range/Units 07:24 07:24 07:25 WBC 6.7 (4.8-10.8) X10*3/uL RBC 4.40 D (4.20-5.50) X10*6/uL Hgb 12.4 D (12.0-16.0) g/dl Hct 37.3 D (37-47) % MCV 84.8 (80-98) fL MCH 28.2 (27.0-33.0) pg MCHC 33.2 (31.0-35.0) g/dl RDW 14.2 (11.0-16.0) % Plt Count 253 D (160-400) X10*3/uL MPV 9.5 (9.4-12.3) fL Immature Gran % (Auto) 0.3 (0.0-0.4) % Neut % (Auto) 75.7 H (45-73) % Lymph % (Auto) 15.1 L (20-40) % [place] % (Auto) 4.8 (2-11) % Eos % (Auto) 3.1 (0-4) % Baso % (Auto) 1.0 (0-2) % Lymph # (Auto) 1.0 L (1.2-4.9) X10*3/uL [place] # (Auto) 0.3 (0.1-1.2) X10*3/uL Eos # (Auto) 0.2 (0.0-0.4) X10*3/uL Baso # (Auto) 0.1 (0.0-0.2) X10*3/uL Abs Immat Gran (auto) 0.02 (0.00-0.03) X10*3/uL Absolute Neuts (auto) 5.1 (2.0-8.3) X10*3/uL Absolute Nucleated RBC 0.000 (0.0-0.012) X10*3/uL Nucleated RBC % (auto) 0.0 (0.0-0.2) /100WBC VBG pH (7.32-7.43) VBG pCO2 mmHg VBG pO2 mmHg VBG HCO3 (22-26) mmol/L VBG O2 Saturation % VBG Base Excess mmol/L Sodium (135-145) mmol/L Potassium (3.3-5.1) mmol/L Chloride (96-108) mmol/L Carbon Dioxide (22-29) mmol/L Anion Gap (12-20) BUN (9-16) mg/dL Creatinine (0.5-1.4) mg/dL Estim Creat Clear Calc Estimated GFR Random Glucose (60-115) mg/dL Lactic Acid 1.6 (0.5-2.0) mmol/L Calcium (8.4-10.2) mg/dL Magnesium (1.6-2.6) mg/dL Total Bilirubin (0.0-1.0) mg/dL Direct Bilirubin (0.0-0.5) mg/dL AST (5-31) U/L ALT (0-31) U/L Alkaline Phosphatase (39-117) U/L Ammonia 21 (13-55) umol/L Troponin I High Sens (<3.5-17.0) ng/L Total Protein (6.5-8.0) g/dL Albumin (3.5-5.0) g/dL Lipase (8-78) U/L TSH (0.32-4.0) uIU/mL Urine Color Urine Appearance Urine pH (5.0-8.0) Ur Specific [place] (1.005-1.025) Urine Protein (NEG-TRACE) MG/DL Urine Glucose (UA) (NEG) MG/DL Urine Ketones (NEG) MG/DL Urine Blood (NEG) Urine Nitrite (NEG) Ur Leukocyte Esterase (NEG) Urine RBC (0) /HPF Urine WBC (0-4) /HPF Ur Squamous Epith Cells /LPF Urine Bacteria /LPF Urine Opiates Screen (Not Detect) Urine Fentanyl Screen (Not Detect) Ur Barbiturates Screen (Not Detect) Ur Phencyclidine Scrn (Not Detect) Ur Amphetamines Screen (Not Detect) U Benzodiazepines Scrn (Not Detect) Urine Cocaine Screen (Not Detect) U Marijuana (THC) Screen (Not Detect) Ethyl Alcohol mg/dL COVID-19 (CEDRICK) (Negative) COVID-19 Clin Com 04/23/21 04/23/21 04/23/21 Range/Units 07:25 07:25 07:25 WBC (4.8-10.8) X10*3/uL RBC (4.20-5.50) X10*6/uL Hgb (12.0-16.0) g/dl Hct (37-47) % MCV (80-98) fL MCH (27.0-33.0) pg MCHC (31.0-35.0) g/dl RDW (11.0-16.0) % Plt Count (160-400) X10*3/uL MPV (9.4-12.3) fL Immature Gran % (Auto) (0.0-0.4) % Neut % (Auto) (45-73) % Lymph % (Auto) (20-40) % [place] % (Auto) (2-11) % Eos % (Auto) (0-4) % Baso % (Auto) (0-2) % Lymph # (Auto) (1.2-4.9) X10*3/uL [place] # (Auto) (0.1-1.2) X10*3/uL Eos # (Auto) (0.0-0.4) X10*3/uL Baso # (Auto) (0.0-0.2) X10*3/uL Abs Immat Gran (auto) (0.00-0.03) X10*3/uL Absolute Neuts (auto) (2.0-8.3) X10*3/uL Absolute Nucleated RBC (0.0-0.012) X10*3/uL Nucleated RBC % (auto) (0.0-0.2) /100WBC VBG pH (7.32-7.43) VBG pCO2 mmHg VBG pO2 mmHg VBG HCO3 (22-26) mmol/L VBG O2 Saturation % VBG Base Excess mmol/L Sodium 131 L (135-145) mmol/L Potassium 4.4 (3.3-5.1) mmol/L Chloride 96 (96-108) mmol/L Carbon Dioxide 26 (22-29) mmol/L Anion Gap 13 (12-20) BUN 8 L D (9-16) mg/dL Creatinine 0.93 (0.5-1.4) mg/dL Estim Creat Clear Calc 31.2 Estimated GFR 59 Random Glucose 99 (60-115) mg/dL Lactic Acid (0.5-2.0) mmol/L Calcium 9.7 D (8.4-10.2) mg/dL Magnesium 2.1 (1.6-2.6) mg/dL Total Bilirubin 0.8 (0.0-1.0) mg/dL Direct Bilirubin 0.2 (0.0-0.5) mg/dL AST 18 D (5-31) U/L ALT 7 (0-31) U/L Alkaline Phosphatase 45 D (39-117) U/L Ammonia (13-55) umol/L Troponin I High Sens 8.1 D (<3.5-17.0) ng/L Total Protein 6.0 L (6.5-8.0) g/dL Albumin 3.9 (3.5-5.0) g/dL Lipase 6 L (8-78) U/L TSH 1.27 (0.32-4.0) uIU/mL Urine Color Urine Appearance Urine pH (5.0-8.0) Ur Specific [place] (1.005-1.025) Urine Protein (NEG-TRACE) MG/DL Urine Glucose (UA) (NEG) MG/DL Urine Ketones (NEG) MG/DL Urine Blood (NEG) Urine Nitrite (NEG) Ur Leukocyte Esterase (NEG) Urine RBC (0) /HPF Urine WBC (0-4) /HPF Ur Squamous Epith Cells /LPF Urine Bacteria /LPF Urine Opiates Screen (Not Detect) Urine Fentanyl Screen (Not Detect) Ur Barbiturates Screen (Not Detect) Ur Phencyclidine Scrn (Not Detect) Ur Amphetamines Screen (Not Detect) U Benzodiazepines Scrn (Not Detect) Urine Cocaine Screen (Not Detect) U Marijuana (THC) Screen (Not Detect) Ethyl Alcohol < 10 mg/dL COVID-19 (CEDRICK) (Negative) COVID-19 Clin Com 04/23/21 04/23/21 04/23/21 Range/Units 07:28 07:36 10:41 WBC (4.8-10.8) X10*3/uL RBC (4.20-5.50) X10*6/uL Hgb (12.0-16.0) g/dl Hct (37-47) % MCV (80-98) fL MCH (27.0-33.0) pg MCHC (31.0-35.0) g/dl RDW (11.0-16.0) % Plt Count (160-400) X10*3/uL MPV (9.4-12.3) fL Immature Gran % (Auto) (0.0-0.4) % Neut % (Auto) (45-73) % Lymph % (Auto) (20-40) % [place] % (Auto) (2-11) % Eos % (Auto) (0-4) % Baso % (Auto) (0-2) % Lymph # (Auto) (1.2-4.9) X10*3/uL [place] # (Auto) (0.1-1.2) X10*3/uL Eos # (Auto) (0.0-0.4) X10*3/uL Baso # (Auto) (0.0-0.2) X10*3/uL Abs Immat Gran (auto) (0.00-0.03) X10*3/uL Absolute Neuts (auto) (2.0-8.3) X10*3/uL Absolute Nucleated RBC (0.0-0.012) X10*3/uL Nucleated RBC % (auto) (0.0-0.2) /100WBC VBG pH 7.36 (7.32-7.43) VBG pCO2 37 mmHg VBG pO2 42 mmHg VBG HCO3 21 L (22-26) mmol/L VBG O2 Saturation 68.0 % VBG Base Excess -3.4 mmol/L Sodium (135-145) mmol/L Potassium (3.3-5.1) mmol/L Chloride (96-108) mmol/L Carbon Dioxide (22-29) mmol/L Anion Gap (12-20) BUN (9-16) mg/dL Creatinine (0.5-1.4) mg/dL Estim Creat Clear Calc Estimated GFR Random Glucose (60-115) mg/dL Lactic Acid (0.5-2.0) mmol/L Calcium (8.4-10.2) mg/dL Magnesium (1.6-2.6) mg/dL Total Bilirubin (0.0-1.0) mg/dL Direct Bilirubin (0.0-0.5) mg/dL AST (5-31) U/L ALT (0-31) U/L Alkaline Phosphatase (39-117) U/L Ammonia (13-55) umol/L Troponin I High Sens 10.3 (<3.5-17.0) ng/L Total Protein (6.5-8.0) g/dL Albumin (3.5-5.0) g/dL Lipase (8-78) U/L TSH (0.32-4.0) uIU/mL Urine Color Urine Appearance Urine pH (5.0-8.0) Ur Specific [place] (1.005-1.025) Urine Protein (NEG-TRACE) MG/DL Urine Glucose (UA) (NEG) MG/DL Urine Ketones (NEG) MG/DL Urine Blood (NEG) Urine Nitrite (NEG) Ur Leukocyte Esterase (NEG) Urine RBC (0) /HPF Urine WBC (0-4) /HPF Ur Squamous Epith Cells /LPF Urine Bacteria /LPF Urine Opiates Screen (Not Detect) Urine Fentanyl Screen (Not Detect) Ur Barbiturates Screen (Not Detect) Ur Phencyclidine Scrn (Not Detect) Ur Amphetamines Screen (Not Detect) U Benzodiazepines Scrn (Not Detect) Urine Cocaine Screen (Not Detect) U Marijuana (THC) Screen (Not Detect) Ethyl Alcohol mg/dL COVID-19 (CEDRICK) Negative (Negative) COVID-19 Clin Com See Note 04/23/21 04/23/21 Range/Units 10:41 10:41 WBC (4.8-10.8) X10*3/uL RBC (4.20-5.50) X10*6/uL Hgb (12.0-16.0) g/dl Hct (37-47) % MCV (80-98) fL MCH (27.0-33.0) pg MCHC (31.0-35.0) g/dl RDW (11.0-16.0) % Plt Count (160-400) X10*3/uL MPV (9.4-12.3) fL Immature Gran % (Auto) (0.0-0.4) % Neut % (Auto) (45-73) % Lymph % (Auto) (20-40) % [place] % (Auto) (2-11) % Eos % (Auto) (0-4) % Baso % (Auto) (0-2) % Lymph # (Auto) (1.2-4.9) X10*3/uL [place] # (Auto) (0.1-1.2) X10*3/uL Eos # (Auto) (0.0-0.4) X10*3/uL Baso # (Auto) (0.0-0.2) X10*3/uL Abs Immat Gran (auto) (0.00-0.03) X10*3/uL Absolute Neuts (auto) (2.0-8.3) X10*3/uL Absolute Nucleated RBC (0.0-0.012) X10*3/uL Nucleated RBC % (auto) (0.0-0.2) /100WBC VBG pH (7.32-7.43) VBG pCO2 mmHg VBG pO2 mmHg VBG HCO3 (22-26) mmol/L VBG O2 Saturation % VBG Base Excess mmol/L Sodium (135-145) mmol/L Potassium (3.3-5.1) mmol/L Chloride (96-108) mmol/L Carbon Dioxide (22-29) mmol/L Anion Gap (12-20) BUN (9-16) mg/dL Creatinine (0.5-1.4) mg/dL Estim Creat Clear Calc Estimated GFR Random Glucose (60-115) mg/dL Lactic Acid (0.5-2.0) mmol/L Calcium (8.4-10.2) mg/dL Magnesium (1.6-2.6) mg/dL Total Bilirubin (0.0-1.0) mg/dL Direct Bilirubin (0.0-0.5) mg/dL AST (5-31) U/L ALT (0-31) U/L Alkaline Phosphatase (39-117) U/L Ammonia (13-55) umol/L Troponin I High Sens (<3.5-17.0) ng/L Total Protein (6.5-8.0) g/dL Albumin (3.5-5.0) g/dL Lipase (8-78) U/L TSH (0.32-4.0) uIU/mL Urine Color YELLOW Urine Appearance CLEAR Urine pH 6.0 (5.0-8.0) Ur Specific [place] 1.010 (1.005-1.025) Urine Protein NEG (NEG-TRACE) MG/DL Urine Glucose (UA) NEG (NEG) MG/DL Urine Ketones NEG (NEG) MG/DL Urine Blood 1+ H (NEG) Urine Nitrite NEG (NEG) Ur Leukocyte Esterase NEG (NEG) Urine RBC 1-4 (0) /HPF Urine WBC 1-4 (0-4) /HPF Ur Squamous Epith Cells TRACE /LPF Urine Bacteria NONE /LPF Urine Opiates Screen Not Detected (Not Detect) Urine Fentanyl Screen POSITIVE H (Not Detect) Ur Barbiturates Screen Not Detected (Not Detect) Ur Phencyclidine Scrn Not Detected (Not Detect) Ur Amphetamines Screen Not Detected (Not Detect) U Benzodiazepines Scrn Not Detected (Not Detect) Urine Cocaine Screen Not Detected (Not Detect) U Marijuana (THC) Screen Not Detected (Not Detect) Ethyl Alcohol mg/dL COVID-19 ([facility]RICK) (Negative) COVID-19 Clin Com ECG Data ECG #1: Attestation: I personally reviewed and interpreted this ECG as follows: ECG interpretation date: 04/23/21 ECG interpretation time: 08:22 Interpretation: Rate: 62 Rhythm: NSR [facility]: normal Normal P waves. Normal DAVID. Normal QRS complex. ST T wave : flat t wave aVL, inverted in V1-V2, no [place] qTC: normal prior studies: no sig change from priors The study has been interpreted contemporaneously by me. . Discharge Plan Discharge Clinical Impression: Acute confusion Patient Disposition: Home, Self-Care Instructions: Altered Mental Status (ED) Additional Instructions: return to ED for any worsening symptoms or concerns you tested positive for fentanyl stay with responsible adult today Prescriptions: No Action simvastatin 20 mg Tablet 20 mg PO BEDTIME RF: 0 losartan 50 mg tablet 50 mg PO DAILY RF: 0 silver sulfadiazine 1 % cream 1 applic topical DAILY RF: 0 trazodone 100 mg tablet 100 mg PO BEDTIME PRN (Reason: Insomnia) RF: 0 mirtazapine 15 mg tablet 1 tab PO BEDTIME RF: 0 gabapentin 100 mg capsule 1 cap PO TID RF: 0 docusate sodium 100 mg capsule 100 mg PO DAILY Qty: 30 RF: 0 buprenorphine-naloxone [Suboxone] 4-1 mg film 1 film sublingual TID Qty: 63 RF: 0 Referrals: Franklin Guerrero MD [Primary Care Provider] - 2 days
--- NOTE | 2021-04-23 06:45 | ECG_ITS ---
Test Reason : ALTERED MENTAL Blood Pressure : / mmHG Vent. Rate : 062 BPM Atrial Rate : 062 BPM P-R Int : 154 ms QRS Dur : 082 ms QT Int : 408 ms P-R-T Axes : 083 080 073 degrees QTc Int : 414 ms Normal sinus rhythm Early repolarization Normal ECG When compared with ECG of 04-FEB-2021 15:09, No significant change was found Referred By: Beata Marquez Electronically Signed By:ISSA NIEVES
--- NOTE | 2021-04-23 07:20 | PHA.MEDREC ---
Pharmacy Consult ? Medication Reconciliation Pharmacy has completed the medication reconciliation. Sole Lane, PharmD [phone]
[2021-04-23] MEDS: LORazepam 2 MG/ML VIAL 1 MG IVPUSH (07:33)
[2021-04-23 07:35] LABS: MANUAL DIFF FLAG NO
[2021-04-23 07:41] LABS: VBG Base Excess -3.4 mmol/L; VBG HCO3 21 mmol/L (22-26); VBG pCO2 37 mmHg; VBG pH 7.36 (7.32-7.43); VBG pO2 42 mmHg
[2021-04-23 07:42] LABS: Venous Blood Gas Refer to POC result
[2021-04-23 07:44] LABS: Ammonia 21 umol/L (13-55)
[2021-04-23 07:47] LABS: Lactic Acid 1.6 mmol/L (0.5-2.0)
[2021-04-23 07:49] LABS: Ethanol < 10 mg/dL
[2021-04-23 07:54] LABS: COVID-19 Test Negative (Negative); IDNOW Serial# 9DD0AD1C
[2021-04-23 07:56] LABS: Alanine Aminotransferase 7 U/L (0-31); Albumin Level 3.9 g/dL (3.5-5.0); Alkaline Phosphatase 45 U/L (39-117); Anion Gap 13 (12-20); Aspartate Amino Transferase 18 U/L (5-31); Bilirubin Direct 0.2 mg/dL (0.0-0.5); Bilirubin Total 0.8 mg/dL (0.0-1.0); Blood Urea Nitrogen 8 mg/dL (9-16); Calcium 9.7 mg/dL (8.4-10.2); Carbon Dioxide 26 mmol/L (22-29); Chloride 96 mmol/L (96-108); Creatinine Clr Calc Pharmacy 31.2; Estimated Glomerular Filt Rate 59; Glucose Random 99 mg/dL (60-115); Lipase 6 U/L (8-78); Magnesium 2.1 mg/dL (1.6-2.6); Potassium 4.4 mmol/L (3.3-5.1); Sodium 131 mmol/L (135-145)
[2021-04-23 08:07] LABS: Basophils Absolute Auto 0.1 X10*3/uL (0.0-0.2); Eosinophils Absolute Auto 0.2 X10*3/uL (0.0-0.4); Eosinophils Percent Auto 3.1 % (0-4); Hematocrit 37.3 % (37-47); Hemoglobin 12.4 g/dl (12.0-16.0); Imm Gran Abs Auto 0.02 X10*3/uL (0.00-0.03); Imm Gran Pct Auto 0.3 % (0.0-0.4); Lymphocytes Percent Auto 15.1 % (20-40); Mean Corpuscular HGB Conc 33.2 g/dl (31.0-35.0); Mean Corpuscular Hemoglobin 28.2 pg (27.0-33.0); Mean Corpuscular Volume 84.8 fL (80-98); Mean Platelet Volume 9.5 fL (9.4-12.3); Monocytes Absolute Auto 0.3 X10*3/uL (0.1-1.2); Monocytes Percent Auto 4.8 % (2-11); Neutrophils Absolute Auto 5.1 X10*3/uL (2.0-8.3); Neutrophils Percent Auto 75.7 % (45-73); Platelet Count 253 X10*3/uL (160-400); Red Cell Distribution Width 14.2 % (11.0-16.0); White Blood Count 6.7 X10*3/uL (4.8-10.8)
[2021-04-23 08:14] VITALS: BP 104/44; PULSE 56; RESP 14; TEMP 36.7; O2SAT 100
[2021-04-23 08:14] LABS: TSH reflex Free T4 1.27 uIU/mL (0.32-4.0)
[2021-04-23 09:16] LABS: Troponin-I High Sensitivity 8.1 ng/L (<3.5-17.0)
[2021-04-23 10:35] VITALS: BP 109/50; PULSE 57; RESP 15; TEMP 37; O2SAT 100
[2021-04-23 10:52] LABS: Glucose Urine UA NEG (NEG); Leukocyte Esterase Urine NEG (NEG); Nitrite Urine NEG (NEG); UACC Culture Trigger NO; Urine Blood 1+ (NEG); Urine Ketones NEG (NEG); Urine Protein NEG (NEG-TRACE)
[2021-04-23] MEDS: 0.9 % Sodium Chloride 1,000 ML 999 ML IVCONT ×2 (10:54)
[2021-04-23 10:55] LABS: Appearance Urine CLEAR; Color Urine YELLOW
[2021-04-23 11:06] LABS: Squamous Epithelial Cell Urine TRACE /LPF
--- NOTE | 2021-04-23 11:09 | PC.NURSE ---
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 pt given bed bath has very unkept appearance. pt states she only has a brazer controlled atmospheric furnace once a week to assist with her hygine. will touch base with casemanagement.
[2021-04-23 11:17] LABS: Amphetamine Screen Urine Not Detected (Not Detect); Barbiturates, Urine Not Detected (Not Detect); Benzodiazepines Screen Urine Not Detected (Not Detect); Cannabinoid Screen Urine Not Detected (Not Detect); Cocaine Screen Urine Not Detected (Not Detect); Fentanyl, urine POSITIVE (Not Detect); Opiate Screen Urine Not Detected (Not Detect); Phencyclidine Screen Urine Not Detected (Not Detect)
[2021-04-23 11:25] LABS: Troponin-I High Sensitivity 10.3 ng/L (<3.5-17.0)
== END 2021-04-23 13:23 | disposition home or self-care (01) ==
PROVIDERS: Nurse Practitioner Psychiatric/Mental Health; Emergency Provider Emergency Medicine; PCP Internal Medicine
DX: R41.0 Disorientation, unspecified (principal); Z20.822 Contact with and (suspected) exposure to COVID-19; I10 Essential (primary) hypertension; F19.10 Other psychoactive substance abuse, uncomplicated; Z79.899 Other long term (current) drug therapy; Z85.41 Personal history of malignant neoplasm of cervix uteri
CPT/HCPCS: 36415; 70450; 71045; 80048; 80076; 80307; 80346; 80364; 80365; 81001; 82077; 82140; 82803; 83605; 83690; 83735; 84443; 84484; 85025; 87040; 87635; 93005; 96361; 96374; 99284; J2060

== ENCOUNTER → 2021-05-09 10:10 | Outpatient (BNVA) | payer MEDICARE, SELFPAY | PROVIDERS: Visit Provider Nurse Practitioner Psychiatric/Mental Health | DX: F11.99 Opioid use, unspecified with unspecified opioid-induced disorder (principal); F32.9 Major depressive disorder, single episode, unspecified; G89.29 Other chronic pain; M54.9 Dorsalgia, unspecified; M19.90 Unspecified osteoarthritis, unspecified site; E78.00 Pure hypercholesterolemia, unspecified; I10 Essential (primary) hypertension; Z88.6 Allergy status to analgesic agent; Z88.1 Allergy status to other antibiotic agents; Z88.0 Allergy status to penicillin; Z88.8 Allergy status to other drugs, medicaments and biological substances | CPT/HCPCS: Q3014 ==

== ENCOUNTER → 2021-05-16 10:34 | Outpatient (BNVA) | payer MEDICARE, SELFPAY | PROVIDERS: Visit Provider Nurse Practitioner Psychiatric/Mental Health | DX: F11.99 Opioid use, unspecified with unspecified opioid-induced disorder (principal) | CPT/HCPCS: Q3014 ==

== ENCOUNTER → 2021-06-06 09:33 | Outpatient (BNVA) | payer MEDICARE, SELFPAY | PROVIDERS: Visit Provider Nurse Practitioner Psychiatric/Mental Health | DX: F11.90 Opioid use, unspecified, uncomplicated (principal) | CPT/HCPCS: Q3014 ==

== ENCOUNTER 2021-06-19 15:24 | Inpatient (IN) | payer MEDICARE, SELFPAY ==
--- NOTE | ~2021-06-19 | CT_ITS ---
EXAMINATION: CT HEAD WITHOUT CONTRAST CLINICAL INFORMATION: Altered mental status COMPARISON: 04/23/2021 TECHNIQUE: Contiguous axial imaging was performed from the skull base to vertex without intravenous contrast. This CT examination was performed using dose optimization techniques as appropriate, variously including the following: * Automated exposure control * Adjustment of mA and/or kV according to patient size (this includes techniques or standardized protocols for targeted exams where dose is matched to indication/reason for exam; i.e. extremities or head) Use of iterative reconstruction technique DLP: 593 mGy-cm. FINDINGS: There is no evidence of acute intracranial hemorrhage or territorial infarction. No abnormal mass effect or midline shift is seen. [place] to white matter differentiation is well preserved. No extra-axial fluid collections are identified. No hydrocephalus. Proportional prominence of the ventricles and sulcal spaces is consistent with moderate volume loss. There is no abnormal attenuation within the brain parenchyma. No acute osseous or soft tissue abnormality. Chronic appearing depression of the left lamina papyracea. The mastoid air cells and visualized portions of the paranasal sinuses are well aerated. CT/CT head/brain wo con IMPRESSION: No acute intracranial pathology. Chronic volume loss with small vessel ischemic change.
--- NOTE | ~2021-06-19 | CT_ITS ---
EXAMINATION: CT CHEST WITHOUT CONTRAST CLINICAL INFORMATION: Pneumonia COMPARISON: Chest radiograph 06/19/[address] 08/14/2016 TECHNIQUE: Multidetector volumetric CT imaging of the chest was done. Axial MIP volume rendering provided. Sagittal and coronal reformatted images were obtained. This CT examination was performed using dose optimization techniques as appropriate, variously including the following: *Automated exposure control *Adjustment of mA and/or kV according to patient size (this includes techniques or standardized protocols for targeted exams where dose is matched to indication/reason for exam; i.e. extremities or head) *Use of iterative reconstruction technique DLP: 127 mGy-cm FINDINGS: LUNGS: Severe emphysematous changes are present in the lungs. There is a small right upper lobe 2 to 3 mm perifissural nodule (5:240), unchanged when compared to 2016. In the left upper lobe, there is a almost flat rounded disc-like nodule measuring 8 x 3 x 8 mm (5:86), new since the prior study of 08/14/2016. The nodular densities seen on the chest radiograph have no obvious correlate on the CT scan of the chest. MEDIASTINUM: There is no subcutaneous or mediastinal fat. Given this and lack of IV contrast. Assessment for mediastinal or hilar lymphadenopathy is quite poor. No gross disease is present. Calcific atherosclerotic changes present in the aorta without aneurysm. Coronary artery calcifications are seen. PLEURA: There is no pleural effusion. No pleural mass or thickening. AXILLA: No lymphadenopathy. UPPER ABDOMEN: Status post cholecystectomy. There is no retroperitoneal or subcutaneous fat. OSSEOUS STRUCTURES: Unremarkable. CT/CT chest wo con IMPRESSION: 1. Severe emphysematous changes once again demonstrated. 2. Incidentally found left upper lobe 8 x 3 x 8 mm disc shaped lung nodule. According to the UPDATED 2017 Fleischner Society recommendations, the advised follow-up imaging for a single 6-8 mm solid nodule is: LOW RISK PATIENT: CT at 6-12 months, then consider CT at 18-24 months. HIGH RISK PATIENT: CT at 6-12 months, then at 18-24 months.
--- NOTE | ~2021-06-19 | XR_ITS ---
EXAMINATION: XR CHEST CLINICAL INFORMATION: Chest pain COMPARISON: Previous chest x-rays most recent March 2021 TECHNIQUE: Frontal view of the chest was obtained. FINDINGS: The cardiac silhouette does not appear enlarged. The thoracic aorta is calcified and slightly tortuous. Hilar and mediastinal contours are otherwise unremarkable. The lungs are well inflated. There is question of a 1.3 cm right upper lobe nodule that partially overlies the right posterior fifth rib. There is a 1 cm nodule at the left lung base overlying the left anterior rib probably representing a nipple shadow. The lungs are otherwise clear. There is no pleural effusion or pneumothorax. There are degenerative changes to the spine. XR/XR chest 1V IMPRESSION: Well-inflated lungs. Question 1.3 cm right upper lobe nodule. This is not appreciated on prior exam March 2021 exam. If there is clinical suspicion of a pneumonia, short-term follow-up chest x-ray following treatment would be recommended. If there is no clinical suspicion of infection or x-ray abnormality fails to resolve, chest CT scan would be recommended. Probable nipple shadow at the left lung base.
[2021-06-19 15:44] VITALS: BP 136/75; BP 140/90; PULSE 75; PULSE 77; RESP 18; TEMP 36.6; O2SAT 99; BMI 11.7
--- NOTE | 2021-06-19 15:53 | ECG_ITS ---
Test Reason : ALTERED MENTAL STATUS Blood Pressure : / mmHG Vent. Rate : 059 BPM Atrial Rate : 059 BPM P-R Int : 144 ms QRS Dur : 084 ms QT Int : 412 ms P-R-T Axes : 086 087 083 degrees QTc Int : 407 ms Sinus bradycardia Right axis deviation Borderline ECG When compared with ECG of 23-APR-2021 08:14, No significant change was found Referred By: Yonas Roldan Electronically Signed By:MARLI LOMELI MD
--- NOTE | 2021-06-19 15:59 | ED_ITS ---
HPI - Altered Mental Status General Chief Complaint: Altered Mental Status Stated Complaint: AMS Time Seen by Provider: 06/19/21 15:41 Source: EMS Mode of arrival: EMS History of Present Illness HPI narrative: This is 75 yo female with hx of Opioid abuse disorder/anxiety/hyponatremia.lower back pain here Today because increasing confusion,she had similar presentation in the past (seen here 04/23/21 for confusion) complaint: altered mental status and confusion Onset (ago): day(s) (1) Severity: moderate Consistency of symptoms: waxing and waning Context: drug abuse Related Data Home Medications Medication Instructions Recorded Confirmed gabapentin 100 mg capsule 1 cap PO TID 01/22/21 06/19/21 losartan 50 mg tablet 50 mg PO DAILY 01/22/21 06/19/21 trazodone 100 mg tablet 100 mg PO BEDTIME PRN 01/22/21 06/19/21 simvastatin 20 mg tablet 20 mg PO BEDTIME 04/23/21 06/19/21 Previous Rx's Medication Instructions Recorded buprenorphine 4 mg-naloxone 1 mg 1 film SUBLINGUAL TID #42 ea 06/06/21 sublingual film (Suboxone) mirtazapine 15 mg tablet 15 mg PO BEDTIME #90 tab 06/11/21 Allergies Allergy/AdvReac Type Severity Reaction Status Date / Time amoxicillin [AMOXICILLIN] Allergy Intermediate HIVES Verified 03/22/21 09:48 acetaminophen [Tylenol] Allergy Mild stomach Verified 03/22/21 09:48 upset penicillin V Allergy Mild Itching Verified 03/22/21 09:48 Penicillins [PENICILLINS] Allergy Mild Itching Verified 03/22/21 09:48 Eric inhibitors Allergy Unknown Unknown Uncoded 01/22/21 00:07 Clindamycin HCl AdvReac Mild Diarrhea Uncoded 01/22/21 00:07 Review of Systems Review of Systems: Yes all other systems are reviewed and are negative Constitutional: Constitutional: Denies fever(s) and Denies frequent falls ENT: Denies throat swelling and Denies tongue swelling Cardiovascular: Cardiovascular: Denies rapid heart rate and Denies leg edema Neurologic: Reports confusion, Denies frequent falls and Denies focal weakness Psychiatric: Psychiatric: Reports confusion Allergic/Immunologic: Allergic/Immunologic: Denies throat swelling and Denies tongue swelling PMFSH Past Medical History Medical History Cervical cancer Chronic back pain Depression DJD (degenerative joint disease) High cholesterol HTN (hypertension) Surgical History History of Family History Family History Mother No problems noted. Father No problems noted. Social History Social History Household Members: Spouse Housing: House Alcohol intake: unknown Patient Tobacco Use Status: Current everyday Tobacco user Tobacco use type: Cigarette Cigarettes Per Day: 15 e-Cigarette/Vaping Use: Never Used Second Hand Smoke Exposure: No Use of substances other than those prescribed or required for medical reasons: Yes Advance Directives: Yes Advance Directives on File: Yes Advance Directives Date on File: 01/22/21 service: No Current occupational status: retired and disabled Physical Exam Vital Signs: Vital Signs: Last Vital Signs Temp 97.8 F 06/19/21 15:44 Pulse 64 06/19/21 20:02 Resp 22 H 06/19/21 20:02 BP 134/75 06/19/21 20:02 Pulse Ox 100 06/19/21 20:02 Body Mass Index 11.7 Const: General: confusion Orientation/consciousness: confusion HENMT: Head: Yes normal to inspection Face and sinus: Yes normal facial exam Mouth: Normal oral and palatal mucosa present Neck: Neck: Yes normal visual inspection, Yes full ROM, Yes no lymphadenopathy and Yes no meningeal signs Chest: Chest palpation & inspection: normal inspection of the chest Resp: Effort & Inspection: normal respiratory effort and able to speak in complete sentences Auscultation: clear to auscultation bilaterally Cardio: Jugular venous distension: no JVD Palpation: normal PMI Rate: regular rate Rhythm: regular rhythm GI: Inspection: Yes normal to inspection Palpation (GI): Soft to palpation, not firm, nontender and no guarding : General: Yes no CVA tenderness Back/Spine/Pelvis: Back: no CVA tenderness Skin: General skin exam: no rashes or lesions noted, elasticity normal and turgor normal Trauma: no lacerations or abrasions Neuro: General: no meningeal signs, no focal motor deficits, CN's II-XI intact bilaterally and confusion Cranial nerves: Yes CN's II-XII intact bilaterally Course Course Course Narrative: I spoke with the Jay [phone] he tells me that she has not been eating and drinking for the last 2 Days at baseline she ambulate with walker Reevaluation(s) Reevaluation #1: Doing better more awake,her head ct is negative,heralabs are good but elevated tropi non diagnostic with normal EKG . Urine is cloudy ,WBC in the urine c/w UTI,she has allergy to PCN,will give levaquin and admit. I spoke with hospitalist Dr Macias MDM - Altered Mental Status MDM Narrative Medical decision making narrative: pt had prior presentation as this in the past,will get labs,lytes,toxicology,will reassest I will speak to Lab Data Result diagrams: 06/19/21 16:34 06/19/21 16:34 Labs: Lab Results 06/19/21 06/19/21 06/19/21 Range/Units 16:34 16:34 16:34 WBC 6.4 (4.8-10.8) X10*3/uL RBC 4.35 (4.20-5.50) X10*6/uL Hgb 12.5 (12.0-16.0) g/dl Hct 37.0 (37-47) % MCV 85.1 (80-98) fL MCH 28.7 (27.0-33.0) pg MCHC 33.8 (31.0-35.0) g/dl RDW 16.9 H (11.0-16.0) % Plt Count 163 D (160-400) X10*3/uL MPV 9.0 L (9.4-12.3) fL Immature Gran % (Auto) 0.5 H (0.0-0.4) % Neut % (Auto) 75.8 H (45-73) % Lymph % (Auto) 18.3 L (20-40) % [place] % (Auto) 5.0 (2-11) % Eos % (Auto) 0.2 (0-4) % Baso % (Auto) 0.2 (0-2) % Lymph # (Auto) 1.2 (1.2-4.9) X10*3/uL [place] # (Auto) 0.3 (0.1-1.2) X10*3/uL Eos # (Auto) 0.0 (0.0-0.4) X10*3/uL Baso # (Auto) 0.0 (0.0-0.2) X10*3/uL Abs Immat Gran (auto) 0.03 (0.00-0.03) X10*3/uL Absolute Neuts (auto) 4.9 (2.0-8.3) X10*3/uL Absolute Nucleated RBC 0.000 (0.0-0.012) X10*3/uL Nucleated RBC % (auto) 0.0 (0.0-0.2) /100WBC Sodium 134 L (135-145) mmol/L Potassium 4.0 (3.3-5.1) mmol/L Chloride 98 (96-108) mmol/L Carbon Dioxide 28 (22-29) mmol/L Anion Gap 12 (12-20) BUN 36 H D (9-16) mg/dL Creatinine 1.06 (0.5-1.4) mg/dL Estim Creat Clear Calc 20.9 Estimated GFR 51 Random Glucose 98 (60-115) mg/dL Calcium 9.2 (8.4-10.2) mg/dL Total Bilirubin 0.8 (0.0-1.0) mg/dL AST 24 (5-31) U/L ALT 11 (0-31) U/L Alkaline Phosphatase 37 L (39-117) U/L Troponin I High Sens 34.7 H* D (<3.5-17.0) ng/L Total Protein 5.6 L (6.5-8.0) g/dL Albumin 3.8 (3.5-5.0) g/dL Urine Color Urine Appearance Urine pH (5.0-8.0) Ur Specific [place] (1.005-1.025) Urine Protein (NEG-TRACE) MG/DL Urine Glucose (UA) (NEG) MG/DL Urine Ketones (NEG) MG/DL Urine Blood (NEG) Urine Nitrite (NEG) Ur Leukocyte Esterase (NEG) Urine RBC (0) /HPF Urine WBC (0-4) /HPF Ur Squamous Epith Cells /LPF Amorphous Sediment /LPF Urine Bacteria /LPF Urine Opiates Screen (Not Detect) Urine Fentanyl Screen (Not Detect) Ur Barbiturates Screen (Not Detect) Ur Phencyclidine Scrn (Not Detect) Ur Amphetamines Screen (Not Detect) U Benzodiazepines Scrn (Not Detect) Urine Cocaine Screen (Not Detect) U Marijuana (THC) Screen (Not Detect) Ethyl Alcohol mg/dL COVID-19 ([facility]) (Negative) COVID-19 Clin Com 06/19/21 06/19/21 06/19/21 Range/Units 16:34 16:34 16:34 WBC (4.8-10.8) X10*3/uL RBC (4.20-5.50) X10*6/uL Hgb (12.0-16.0) g/dl Hct (37-47) % MCV (80-98) fL MCH (27.0-33.0) pg MCHC (31.0-35.0) g/dl RDW (11.0-16.0) % Plt Count (160-400) X10*3/uL MPV (9.4-12.3) fL Immature Gran % (Auto) (0.0-0.4) % Neut % (Auto) (45-73) % Lymph % (Auto) (20-40) % [place] % (Auto) (2-11) % Eos % (Auto) (0-4) % Baso % (Auto) (0-2) % Lymph # (Auto) (1.2-4.9) X10*3/uL [place] # (Auto) (0.1-1.2) X10*3/uL Eos # (Auto) (0.0-0.4) X10*3/uL Baso # (Auto) (0.0-0.2) X10*3/uL Abs Immat Gran (auto) (0.00-0.03) X10*3/uL Absolute Neuts (auto) (2.0-8.3) X10*3/uL Absolute Nucleated RBC (0.0-0.012) X10*3/uL Nucleated RBC % (auto) (0.0-0.2) /100WBC Sodium (135-145) mmol/L Potassium (3.3-5.1) mmol/L Chloride (96-108) mmol/L Carbon Dioxide (22-29) mmol/L Anion Gap (12-20) BUN (9-16) mg/dL Creatinine (0.5-1.4) mg/dL Estim Creat Clear Calc Estimated GFR Random Glucose (60-115) mg/dL Calcium (8.4-10.2) mg/dL Total Bilirubin (0.0-1.0) mg/dL AST (5-31) U/L ALT (0-31) U/L Alkaline Phosphatase (39-117) U/L Troponin I High Sens (<3.5-17.0) ng/L Total Protein (6.5-8.0) g/dL Albumin (3.5-5.0) g/dL Urine Color YELLOW Urine Appearance HAZY Urine pH 5.5 (5.0-8.0) Ur Specific [place] 1.020 (1.005-1.025) Urine Protein TRACE (NEG-TRACE) MG/DL Urine Glucose (UA) NEG (NEG) MG/DL Urine Ketones NEG (NEG) MG/DL Urine Blood 2+ H (NEG) Urine Nitrite POS H (NEG) Ur Leukocyte Esterase 3+ H (NEG) Urine RBC 1-4 (0) /HPF Urine WBC 76-150 H (0-4) /HPF Ur Squamous Epith Cells NONE /LPF Amorphous Sediment 1+ /LPF Urine Bacteria TRACE /LPF Urine Opiates Screen Not Detected (Not Detect) Urine Fentanyl Screen Not Detected (Not Detect) Ur Barbiturates Screen Not Detected (Not Detect) Ur Phencyclidine Scrn Not Detected (Not Detect) Ur Amphetamines Screen Not Detected (Not Detect) U Benzodiazepines Scrn Not Detected (Not Detect) Urine Cocaine Screen Not Detected (Not Detect) U Marijuana (THC) Screen Not Detected (Not Detect) Ethyl Alcohol < 10 mg/dL COVID-19 ([facility]) (Negative) COVID-19 Clin Com 06/19/21 06/19/21 Range/Units 18:37 18:37 WBC (4.8-10.8) X10*3/uL RBC (4.20-5.50) X10*6/uL Hgb (12.0-16.0) g/dl Hct (37-47) % MCV (80-98) fL MCH (27.0-33.0) pg MCHC (31.0-35.0) g/dl RDW (11.0-16.0) % Plt Count (160-400) X10*3/uL MPV (9.4-12.3) fL Immature Gran % (Auto) (0.0-0.4) % Neut % (Auto) (45-73) % Lymph % (Auto) (20-40) % [place] % (Auto) (2-11) % Eos % (Auto) (0-4) % Baso % (Auto) (0-2) % Lymph # (Auto) (1.2-4.9) X10*3/uL [place] # (Auto) (0.1-1.2) X10*3/uL Eos # (Auto) (0.0-0.4) X10*3/uL Baso # (Auto) (0.0-0.2) X10*3/uL Abs Immat Gran (auto) (0.00-0.03) X10*3/uL Absolute Neuts (auto) (2.0-8.3) X10*3/uL Absolute Nucleated RBC (0.0-0.012) X10*3/uL Nucleated RBC % (auto) (0.0-0.2) /100WBC Sodium (135-145) mmol/L Potassium (3.3-5.1) mmol/L Chloride (96-108) mmol/L Carbon Dioxide (22-29) mmol/L Anion Gap (12-20) BUN (9-16) mg/dL Creatinine (0.5-1.4) mg/dL Estim Creat Clear Calc Estimated GFR Random Glucose (60-115) mg/dL Calcium (8.4-10.2) mg/dL Total Bilirubin (0.0-1.0) mg/dL AST (5-31) U/L ALT (0-31) U/L Alkaline Phosphatase (39-117) U/L Troponin I High Sens 31.4 H* (<3.5-17.0) ng/L Total Protein (6.5-8.0) g/dL Albumin (3.5-5.0) g/dL Urine Color Urine Appearance Urine pH (5.0-8.0) Ur Specific [place] (1.005-1.025) Urine Protein (NEG-TRACE) MG/DL Urine Glucose (UA) (NEG) MG/DL Urine Ketones (NEG) MG/DL Urine Blood (NEG) Urine Nitrite (NEG) Ur Leukocyte Esterase (NEG) Urine RBC (0) /HPF Urine WBC (0-4) /HPF Ur Squamous Epith Cells /LPF Amorphous Sediment /LPF Urine Bacteria /LPF Urine Opiates Screen (Not Detect) Urine Fentanyl Screen (Not Detect) Ur Barbiturates Screen (Not Detect) Ur Phencyclidine Scrn (Not Detect) Ur Amphetamines Screen (Not Detect) U Benzodiazepines Scrn (Not Detect) Urine Cocaine Screen (Not Detect) U Marijuana (THC) Screen (Not Detect) Ethyl Alcohol mg/dL COVID-19 ([facility]) Negative (Negative) COVID-19 Clin Com See Note Imaging Data CT scan - head: Radiologist's impression: head ct no acute changes ECG Data ECG #1: ECG interpretation date: 06/19/21 ECG interpretation time: 17:29 Pacemaker model: NSR 61 no ischemic changes Discharge Plan Discharge Clinical Impression: Abnormal mental state Patient Disposition: Admitted As Inpatient
[2021-06-19] MEDS: 0.9 % Sodium Chloride 1,000 ML 999 ML IVCONT ×2 (16:06→18:27)
[2021-06-19 16:39] LABS: MANUAL DIFF FLAG NO
[2021-06-19 16:45] LABS: Basophils Percent Auto 0.2 % (0-2); Eosinophils Percent Auto 0.2 % (0-4); Hemoglobin 12.5 g/dl (12.0-16.0); Imm Gran Abs Auto 0.03 X10*3/uL (0.00-0.03); Imm Gran Pct Auto 0.5 % (0.0-0.4); Lymphocytes Absolute Auto 1.2 X10*3/uL (1.2-4.9); Lymphocytes Percent Auto 18.3 % (20-40); Mean Corpuscular HGB Conc 33.8 g/dl (31.0-35.0); Mean Corpuscular Hemoglobin 28.7 pg (27.0-33.0); Mean Corpuscular Volume 85.1 fL (80-98); Monocytes Absolute Auto 0.3 X10*3/uL (0.1-1.2); Neutrophils Absolute Auto 4.9 X10*3/uL (2.0-8.3); Neutrophils Percent Auto 75.8 % (45-73); Platelet Count 163 X10*3/uL (160-400); Red Blood Count 4.35 X10*6/uL (4.20-5.50); Red Cell Distribution Width 16.9 % (11.0-16.0); White Blood Count 6.4 X10*3/uL (4.8-10.8)
[2021-06-19 16:51] LABS: Ethanol < 10 mg/dL
[2021-06-19 16:56] LABS: Appearance Urine HAZY; Color Urine YELLOW; Glucose Urine UA NEG (NEG); Leukocyte Esterase Urine 3+ (NEG); Nitrite Urine POS (NEG); PH 5.5 (5.0-8.0); UACC Culture Trigger YES; Urine Blood 2+ (NEG); Urine Ketones NEG (NEG); Urine Protein TRACE MG/DL (NEG-TRACE)
[2021-06-19 16:58] LABS: Alanine Aminotransferase 11 U/L (0-31); Albumin Level 3.8 g/dL (3.5-5.0); Alkaline Phosphatase 37 U/L (39-117); Anion Gap 12 (12-20); Aspartate Amino Transferase 24 U/L (5-31); Bilirubin Total 0.8 mg/dL (0.0-1.0); Blood Urea Nitrogen 36 mg/dL (9-16); Calcium 9.2 mg/dL (8.4-10.2); Carbon Dioxide 28 mmol/L (22-29); Chloride 98 mmol/L (96-108); Creatinine Clr Calc Pharmacy 20.9; Estimated Glomerular Filt Rate 51; Glucose Random 98 mg/dL (60-115); Sodium 134 mmol/L (135-145); Total Protein 5.6 g/dL (6.5-8.0)
--- NOTE | 2021-06-19 17:08 | ECG_ITS ---
Test Reason : repeat Blood Pressure : / mmHG Vent. Rate : 061 BPM Atrial Rate : 061 BPM P-R Int : 144 ms QRS Dur : 086 ms QT Int : 420 ms P-R-T Axes : 086 086 085 degrees QTc Int : 422 ms Normal sinus rhythm Right axis deviation Otherwise normal ECG No significant changes seen Referred By: Yonas Roldan Electronically Signed By:MARLI LOMELI MD
[2021-06-19 17:09] LABS: Troponin-I High Sensitivity 34.7 ng/L (<3.5-17.0)
[2021-06-19 17:22] LABS: Amphetamine Screen Urine Not Detected (Not Detect); Bacteria Urine TRACE /LPF; Barbiturates, Urine Not Detected (Not Detect); Benzodiazepines Screen Urine Not Detected (Not Detect); Cannabinoid Screen Urine Not Detected (Not Detect); Cocaine Screen Urine Not Detected (Not Detect); Fentanyl, urine Not Detected (Not Detect); Opiate Screen Urine Not Detected (Not Detect); Phencyclidine Screen Urine Not Detected (Not Detect); UACC CULT YES
[2021-06-19 17:23] LABS: Amorphous Sediment Urine 1+ /LPF
[2021-06-19 17:50] VITALS: BP 197/85; PULSE 60; RESP 12; O2SAT 97
[2021-06-19] MEDS: levoFLOXacin/D5W 500 MG/100 ML PIGGYBACK 100 MG IV (17:53)
--- NOTE | 2021-06-19 18:12 | PC.NURSE ---
Pt is noted to be very cachectic and is intermittently yelling out, then falling asleep. Pt has normal saline and iv antibiotics infusing at this time. Pt noted to have a large sacral ulcer, most likely stage 2. Dressing put in place.
[2021-06-19 19:09] LABS: Troponin-I High Sensitivity 31.4 ng/L (<3.5-17.0)
[2021-06-19 19:16] LABS: COVID-19 Test Negative (Negative); IDNOW Serial# 9DD0AD1C
--- NOTE | 2021-06-19 19:19 | PM.IMHP ---
History of Present Illness Date of Service: 06/19/21 Chief Complaint: Confusion 75-year-old female with a past medical history of hypertension, hyperlipidemia, opiate dependence on Suboxone, chronic back pain, degenerative joint issues, history of cervical cancer presented to the hospital with a chief complaint of confusion. Per family patient has been confused and not has above the past 2 days. And has reduced oral intake. Denies patient complaining of any chest pain palpitations lightheadedness or dizziness. Denies fevers cough or sputum production. Denies any nausea vomiting or diarrhea. Review of all other systems is negative except mentioned above ER course: Per ER team patient noted to be pleasantly confused, exam nonfocal, CT head showed no acute findings, urinalysis was abnormal consistent with UTI, was given levofloxacin-patient was allergic to penicillins; patient also noted to have indeterminate troponins-plate units; denies patient complaining of chest pain. EKG was nonischemic. Admitted for further management. I spoke to the ER physician who also mentioned that patient has decubitus ulcers. [facility] Medical History Cervical cancer Chronic back pain Depression DJD (degenerative joint disease) High cholesterol HTN (hypertension) Family History Mother No problems noted. Father No problems noted. Pertinent family history: As mentioned above Surgical History History of Social History Household Members: Spouse Housing: House Alcohol intake: unknown Patient Tobacco Use Status: Current everyday Tobacco user Tobacco use type: Cigarette Cigarettes Per Day: 15 e-Cigarette/Vaping Use: Never Used Second Hand Smoke Exposure: No Use of substances other than those prescribed or required for medical reasons: Yes Advance Directives: Yes Advance Directives on File: Yes Advance Directives Date on File: 01/22/21 service: No Current occupational status: retired and disabled Meds Allergies Allergy/AdvReac Type Severity Reaction Status Date / Time amoxicillin [AMOXICILLIN] Allergy Intermediate HIVES Verified 03/22/21 09:48 acetaminophen [Tylenol] Allergy Mild stomach Verified 03/22/21 09:48 upset penicillin V Allergy Mild Itching Verified 03/22/21 09:48 Penicillins [PENICILLINS] Allergy Mild Itching Verified 03/22/21 09:48 Eric inhibitors Allergy Unknown Unknown Uncoded 01/22/21 00:07 Clindamycin HCl AdvReac Mild Diarrhea Uncoded 01/22/21 00:07 Active Medications: Current Medications Acetaminophen (Acetaminophen 325 Mg Tablet) 650 mg PO Q6H PRN PRN Reason: Pain, Mild (Pain Scale 1-3) Heparin Sodium (Porcine) (Heparin Sodium,Porcine 5,000 Unit/Ml Vial) 5,000 unit SUBCUT Q12H [facility] Dextrose/Sodium Chloride (D51/2ns) 1,000 mls @ 50 mls/hr IVCONT .Q20H CAPRI Melatonin (Melatonin 3 Mg Tablet) 6 mg PO BEDTIME PRN PRN Reason: Insomnia Pharmacy Consult (Consult Rx Perform Med Rec) 1 each MISCELLANE ONCE PRN PRN Reason: Consult order Senna (Sennosides 8.6 Mg Tablet) 17.2 mg PO BEDTIME PRN PRN Reason: Constipation Sodium Chloride (0.9 % Sodium Chloride Flush 3 Ml Syringe) 3 ml IVFLUSH QSHIFT [facility] Home Medications Medication Instructions Recorded Confirmed Last Taken Type gabapentin 100 mg capsule 1 cap PO TID 01/22/21 06/19/21 06/19/21 History losartan 50 mg tablet 50 mg PO DAILY 01/22/21 06/19/21 06/19/21 History trazodone 100 mg tablet 100 mg PO BEDTIME PRN 01/22/21 06/19/21 06/18/21 History simvastatin 20 mg tablet 20 mg PO BEDTIME 04/23/21 06/19/21 06/18/21 History Physical Exam Vital Signs and Narrative: Vital Signs: Last Vital Signs Temp 97.8 F 06/19/21 15:44 Pulse 60 06/19/21 17:50 Resp 12 06/19/21 17:50 BP 197/85 H 06/19/21 17:50 Pulse Ox 97 06/19/21 17:50 Body Mass Index 11.7 Gen: Appears be in no acute distress HEENT: NCAT, Moist mucosa. Pulmonary: Vesicular breath sounds, fair air entry CVS: Normal S1-S2 Abdomen: BS+, Soft, Nontender Extremities: Warm well perfused Neuro: Alert and awake. Decubitus ulcer: I tried to examine the patient decubitus ulcers patient was crying and refuses to turn around. Unable to examine the decubitus ulcers. Wound consult. Results Labs CBC and Chem 7: 06/19/21 16:34 06/19/21 16:34 Labs: Laboratory Results - last 24 hr 06/19/21 06/19/21 06/19/21 16:34 16:34 16:34 MCV 85.1 MCH 28.7 MCHC 33.8 RDW 16.9 H Plt Count 163 D MPV 9.0 L Immature Gran % (Auto) 0.5 H Neut % (Auto) 75.8 H Lymph % (Auto) 18.3 L [place] % (Auto) 5.0 Eos % (Auto) 0.2 Baso % (Auto) 0.2 Lymph # (Auto) 1.2 [place] # (Auto) 0.3 Eos # (Auto) 0.0 Baso # (Auto) 0.0 Abs Immat Gran (auto) 0.03 Absolute Neuts (auto) 4.9 Absolute Nucleated RBC 0.000 Nucleated RBC % (auto) 0.0 Anion Gap 12 Estim Creat Clear Calc 20.9 Estimated GFR 51 Random Glucose 98 Calcium 9.2 Total Bilirubin 0.8 AST 24 ALT 11 Alkaline Phosphatase 37 L Troponin I High Sens 34.7 H* D Total Protein 5.6 L Albumin 3.8 Urine Color Urine Appearance Urine pH Ur Specific [place] Urine Protein Urine Glucose (UA) Urine Ketones Urine Blood Urine Nitrite Ur Leukocyte Esterase Urine RBC Urine WBC Ur Squamous Epith Cells Amorphous Sediment Urine Bacteria Urine Opiates Screen Urine Fentanyl Screen Ur Barbiturates Screen Ur Phencyclidine Scrn Ur Amphetamines Screen U Benzodiazepines Scrn Urine Cocaine Screen U Marijuana (THC) Screen Ethyl Alcohol COVID-19 ([facility]) COVID-19 Clin Com 06/19/21 06/19/21 06/19/21 16:34 16:34 16:34 MCV MCH MCHC RDW Plt Count MPV Immature Gran % (Auto) Neut % (Auto) Lymph % (Auto) [place] % (Auto) Eos % (Auto) Baso % (Auto) Lymph # (Auto) [place] # (Auto) Eos # (Auto) Baso # (Auto) Abs Immat Gran (auto) Absolute Neuts (auto) Absolute Nucleated RBC Nucleated RBC % (auto) Anion Gap Estim Creat Clear Calc Estimated GFR Random Glucose Calcium Total Bilirubin AST ALT Alkaline Phosphatase Troponin I High Sens Total Protein Albumin Urine Color YELLOW Urine Appearance HAZY Urine pH 5.5 Ur Specific [place] 1.020 Urine Protein TRACE Urine Glucose (UA) NEG Urine Ketones NEG Urine Blood 2+ H Urine Nitrite POS H Ur Leukocyte Esterase 3+ H Urine RBC 1-4 Urine WBC 76-150 H Ur Squamous Epith Cells NONE Amorphous Sediment 1+ Urine Bacteria TRACE Urine Opiates Screen Not Detected Urine Fentanyl Screen Not Detected Ur Barbiturates Screen Not Detected Ur Phencyclidine Scrn Not Detected Ur Amphetamines Screen Not Detected U Benzodiazepines Scrn Not Detected Urine Cocaine Screen Not Detected U Marijuana (THC) Screen Not Detected Ethyl Alcohol < 10 COVID-19 ([facility]) COVID-19 Clin Com 06/19/21 06/19/21 18:37 18:37 MCV MCH MCHC RDW Plt Count MPV Immature Gran % (Auto) Neut % (Auto) Lymph % (Auto) [place] % (Auto) Eos % (Auto) Baso % (Auto) Lymph # (Auto) [place] # (Auto) Eos # (Auto) Baso # (Auto) Abs Immat Gran (auto) Absolute Neuts (auto) Absolute Nucleated RBC Nucleated RBC % (auto) Anion Gap Estim Creat Clear Calc Estimated GFR Random Glucose Calcium Total Bilirubin AST ALT Alkaline Phosphatase Troponin I High Sens 31.4 H* Total Protein Albumin Urine Color Urine Appearance Urine pH Ur Specific [place] Urine Protein Urine Glucose (UA) Urine Ketones Urine Blood Urine Nitrite Ur Leukocyte Esterase Urine RBC Urine WBC Ur Squamous Epith Cells Amorphous Sediment Urine Bacteria Urine Opiates Screen Urine Fentanyl Screen Ur Barbiturates Screen Ur Phencyclidine Scrn Ur Amphetamines Screen U Benzodiazepines Scrn Urine Cocaine Screen U Marijuana (THC) Screen Ethyl Alcohol COVID-19 ([facility]) Negative COVID-19 Clin Com See Note Imaging Radiologist's Impressions: Impressions Chest X-Ray 06/19/21 15:53 IMPRESSION: Well-inflated lungs. Question 1.3 cm right upper lobe nodule. This is not appreciated on prior exam March 2021 exam. If there is clinical suspicion of a pneumonia, short-term follow-up chest x-ray following treatment would be recommended. If there is no clinical suspicion of infection or x-ray abnormality fails to resolve, chest CT scan would be recommended. Probable nipple shadow at the left lung base. Head CT 06/19/21 15:53 IMPRESSION: No acute intracranial pathology. Chronic volume loss with small vessel ischemic change. Chest CT 06/19/21 17:04 IMPRESSION: 1. Severe emphysematous changes once again demonstrated. 2. Incidentally found left upper lobe 8 x 3 x 8 mm disc shaped lung nodule. According to the UPDATED 2017 Fleischner Society recommendations, the advised follow-up imaging for a single 6-8 mm solid nodule is: LOW RISK PATIENT: CT at 6-12 months, then consider CT at 18-24 months. HIGH RISK PATIENT: CT at 6-12 months, then at 18-24 months. Assessment and Plan (1) UTI (urinary tract infection): Status: Acute (2) AMS (altered mental status): Status: Acute 75-year-old female with a past medical history of hypertension, hyperlipidemia, opiate dependence on Suboxone, chronic back pain, degenerative joint issues, history of cervical cancer presented to the hospital with a chief complaint of confusion. Noted to have UTI. Admitted for further management. Confusion: Likely in the setting of toxic metabolic encephalopathy from UTI. Supportive care UTI: Continue levofloxacin. Follow up cultures. History of opiate dependence: Patient on Suboxone. Will consult Addiction Medicine for confirmation and resuming patient's home medication. Indeterminate troponins: EKG nonischemic. Patient denies any chest pain. Echocardiogram Cardiology consult Decubitus ulcer: I tried to examine the patient decubitus ulcers patient was crying and refuses to turn around. Unable to examine the decubitus ulcers. Wound consult. DVT prophylaxis: Subcu heparin Code status: Full code-spoke to the patient's . Above plan of care discussed with the patient's and expressed agreement to the above plan. Quality Stroke Does the patient have a stroke diagnosis?: No VTE Prior VTE?: No VTE Risk Level:: Medical - moderate - high VTE Device Contraindication: Treatment Not Indicated VTE Drug Contraindication: N/A - Med Ordered
[2021-06-19] MEDS: Haloperidol Lactate 5 MG/ML VIAL 2 MG IVPUSH ×2 (19:22→20:46)
--- NOTE | 2021-06-19 19:23 | PC.NURSE ---
pt medicated as per emar.
[2021-06-19] MEDS: Dextrose 5 % and 0.45 % NaCl 1,000 ML 50 ML IVCONT (19:47)
--- NOTE | 2021-06-19 19:47 | PC.NURSE ---
D51/2NS UP AND RUNNING ON PUMP.
[2021-06-19 19:52] VITALS: BP 169/89; PULSE 60; RESP 14; O2SAT 100
[2021-06-19 20:02] VITALS: BP 134/75; PULSE 64; RESP 22; O2SAT 100
[2021-06-19] MEDS: Gabapentin 100 MG CAPSULE PO (20:03)
[2021-06-19] MEDS: Atorvastatin Calcium 10 MG TABLET PO (20:03)
[2021-06-19] MEDS: Heparin Sodium,Porcine 5,000 UNIT/ML VIAL 5000 UNIT SUBCUT (20:03)
--- NOTE | 2021-06-19 23:15 | PC.NURSE ---
pt remains calm, wakes to voice. Respirations easy, n/l. skin w/d. pt awaiting for room assignment. Pt in [place]. WILL continue to monitor pt.
[2021-06-20] VITALS: BP 122/60; PULSE 58; RESP 16
[2021-06-20] MEDS: 0.9 % Sodium Chloride Flush 3 ML SYRINGE IVFLUSH ×4 (01:00→19:41)
--- NOTE | 2021-06-20 01:45 | PC.NURSE ---
pt up to commode with 2 assists. pt in NAD, remains alert and watching TV. Will continue to monitor pt.
[2021-06-20 02:30] VITALS: BP 114/67; PULSE 78; RESP 16
--- NOTE | 2021-06-20 03:24 | PC.NURSE ---
No chg in pt's condition. chest wall moving up and down, pt awaiting for room assignment. will continue to monitor pt.
[2021-06-20 05:55] VITALS: BP 129/67; PULSE 54; RESP 16
[2021-06-20 07:57] LABS: MANUAL DIFF FLAG NO
[2021-06-20 07:58] LABS: Basophils Percent Auto 0.2 % (0-2); Eosinophils Percent Auto 0.2 % (0-4); Hematocrit 31.8 % (37-47); Hemoglobin 11.1 g/dl (12.0-16.0); Imm Gran Abs Auto 0.04 X10*3/uL (0.00-0.03); Imm Gran Pct Auto 0.7 % (0.0-0.4); Lymphocytes Absolute Auto 1.6 X10*3/uL (1.2-4.9); Lymphocytes Percent Auto 27.8 % (20-40); Mean Corpuscular HGB Conc 34.9 g/dl (31.0-35.0); Mean Corpuscular Hemoglobin 28.9 pg (27.0-33.0); Mean Corpuscular Volume 82.8 fL (80-98); Mean Platelet Volume 9.7 fL (9.4-12.3); Monocytes Absolute Auto 0.4 X10*3/uL (0.1-1.2); Monocytes Percent Auto 6.7 % (2-11); Neutrophils Absolute Auto 3.7 X10*3/uL (2.0-8.3); Neutrophils Percent Auto 64.4 % (45-73); Platelet Count 144 X10*3/uL (160-400); Red Blood Count 3.84 X10*6/uL (4.20-5.50); Red Cell Distribution Width 16.6 % (11.0-16.0); White Blood Count 5.7 X10*3/uL (4.8-10.8)
[2021-06-20 08:22] LABS: Anion Gap 8 (12-20); Blood Urea Nitrogen 28 mg/dL (9-16); Calcium 8.1 mg/dL (8.4-10.2); Carbon Dioxide 27 mmol/L (22-29); Chloride 100 mmol/L (96-108); Creatinine Clr Calc Pharmacy 35.1; Estimated Glomerular Filt Rate > 60; Glucose Random 144 mg/dL (60-115); Potassium 3.4 mmol/L (3.3-5.1); Sodium 132 mmol/L (135-145)
[2021-06-20] MEDS: cefTRIAXone sodium 1 GM in 0.9 % Sodium Chloride 50 ML IV (08:29)
[2021-06-20] MEDS: Buprenorphine/Naloxone 4/1 mg FILM 1 FILM SUBLINGUAL ×3 (08:29→19:43)
[2021-06-20] MEDS: Heparin Sodium,Porcine 5,000 UNIT/ML VIAL 5000 UNIT SUBCUT ×2 (08:30→19:41)
[2021-06-20 08:31] VITALS: BP 144/62; PULSE 51
[2021-06-20] MEDS: Gabapentin 100 MG CAPSULE PO ×3 (08:32→19:42)
[2021-06-20 08:43] VITALS: BP 133/66; PULSE 50; RESP 16; O2SAT 100
--- NOTE | 2021-06-20 08:46 | PC.NURSE ---
pt given breakfast but she refused. meds given as documented, antibiotic infusing. pt resting quietly, called to check on her, pt gave this insurance underwriter sales permission to speak with . pt alert and oriented, vss. pt awaiting bed assignment.
--- NOTE | 2021-06-20 09:30 | CA_ITS ---
Transthoracic Echocardiogram Patient (Last, First, Middle): Kellie Hernandez, Gender: Female Date of : 1945 Age: 75 Procedure Date: 06/20/2021 Procedure Type: Transthoracic Echocardiogram Location: S3E Height: 157.48 cm Weight: 36.29 kg BSA: 1.29 m2 Heart Rate: bpm BP: 129 / 67 mmHg Dude Wrangler: YR/BRIA Referring MD: Carlos Membreno MD Symptoms: Indeterminate troponins Study Quality: Fair Conclusions: - Normal left ventricular cavity size. There is normal left ventricular wall thickness. The left ventricular systolic function is low normal. - Normal right ventricular cavity size. There is low normal right ventricular systolic function. - There is a small pericardial effusion. There are no definitive echocardiographic findings of tamponade physiology. Findings Left Ventricle Normal left ventricular cavity size. There is normal left ventricular wall thickness. The left ventricular systolic function is low normal. The visually estimated ejection fraction is between 50-55%. There is no evidence of regional wall motion abnormalities. Diastolic function is indeterminate on the basis of available data. Right Ventricle Normal right ventricular cavity size. There is low normal right ventricular systolic function. Atria Both atria are normal in size. Aortic Valve There is mild calcification of the aortic valve. There is no aortic valve stenosis. There is no aortic valve regurgitation. Mitral Valve The mitral valve appears normal. There is mild mitral valve regurgitation. There is no mitral valve stenosis. Pulmonic Valve The pulmonic valve is likely normal. Tricuspid Valve Normal tricuspid valve structure. There is mild tricuspid valve regurgitation. Tricuspid regurgitation envelope is inadequate for calculation of right ventricular systolic pressure. Normal right atrial pressure. Great Vessels All visible segments of the aorta are normal in size. The pulmonary artery was not well visualized. Venous The inferior vena cava is normal in size and collapses greater than 50% with inspiration. Pericardium/Pleural Prominent epicardial adipose tissue noted. There is a small pericardial effusion. There are no definitive echocardiographic findings of tamponade physiology. Measurements 2D Linear Measurements IVSd: 0.77 0.6-0.9/0.6-1.0 cm LVIDd: 3.26 3.9-5.3/4.2-5.9 cm LVIDd Index: 2.53 2.4-3.2/2.2-3.1 cm/m2 LVIDs: 2.33 2.0-3.6 cm LVPWd: 0.78 0.7-1.1 cm Ao Root: 3.20 2.1-3.5 cm LA Diam: 3.30 2.7-3.8/3.0-4.0 cm LAIDs Index: 2.56 1.5-2.3 cm/m2 LV Mass: 79.34 67-162/88-224 g LV Mass Index: 61.51 43-95/49-115 g/m2 LVOT Diam: 2.00 3.0+(-)1.3 cm Mitral Valve MV Pk E: 0.67 MV PK A: 0.51 MV Decel Time: 223.00 E/A: 1.30 E'Lateral: 4.90 E'Medial: 3.92 E/E' Med: 17.20 E/E' Lat: 13.70 PHT: 65.00 MVA PHT: 3.38 Decel [place]: 3.01 Aortic Valve AoV Pk Esteban: 0.90 AoV Mn Esteban: 0.56 AoV VTI: 0.17 AoV Pk Grad: 3.00 Aov Mn Grad: 2.00 BACILIO Cont.VTI: 2.52 LVOT LVOT Pk Esteban: 0.60 LVOT Mn Esteban: 0.38 LVOT VTI: 0.14 LVOT Pk Grad: 1.00 LVOT Mn Grad: 1.00 LVOT Diam: 2.00 LVOT Area: 3.14 Diastolic Function MV Pk E: 0.67 MV Pk A: 0.51 E/A: 1.30 E'Medial: 3.92 E/E' Med: 17.20 E' Laterial: 4.90 E/E' Lat: 13.70 Right Ventricle TAPSE (mm): 1.16 Tricuspid Valve TR Pk Esteban: 2.04 TR Pk Grad: 17.00 Great Vessels Aorta Ao Root-2D: 3.20 2.0-3.7 cm Ao Asc: 2.60 2.1-3.4 cm Updated in Other Vendor System with Status of Final Tyron Mckeon MD electronically signed on 06/20/2021 8:07:43 PM with status of Final
--- NOTE | 2021-06-20 09:55 | PC.NURSE ---
this telegraphic typewriter mechanic gave report to RN who is orienting with ALINA Alexander. pt will be transported to room 383 by reducing salon attendant.
--- NOTE | 2021-06-20 10:44 | P.CDIC_ITS ---
CDI Concurrent Query Documentation Clarification: PHYSICIAN'S DOCUMENTATION REQUEST Date of Query: 06/20/21 1045 Patient Name: Kellie Hernandez Admit Date: 06/19/21 Dear Doctor, A review of the medical record indicates additional documentation may be needed. Please review below and update the documentation accordingly. Risk Factors/Clinical Indicators/Treatments BMI 15.2 Nursing notes 06/19 patient is very cachectic, yelling out, frail in appearance. If possible, please provide an associated diagnosis related to the abnormal BMI, such as: For a BMI <= 19: * Underweight * Cachexia * Anorexia * Malnutrition, mild, moderate or severe * Nutritional deficiency, etc. Or: * BMI is not significant * Other (please specify) * Unable to determine Use of terms such as suspected, likely, concern for, or probable (associated with a specific diagnosis that is being evaluated, monitored, or treated as if it exists) are acceptable and can be coded in the inpatient setting, when documented at the time of discharge. Thank you, Stacy Magallon [facility], CDIS Extension: [phone] Please use your independent medical judgment in providing your response. THIS QUERY IS PART OF THE PERMANENT MEDICAL RECORD Provider Response: Severe Protein-Calorie Malnutrition
--- NOTE | 2021-06-20 11:23 | HO.PM.IMPN ---
Subjective Subjective Date of Service: 06/20/21 Interval History: cc: ams interval history: everything hurts Cardiovascular Cardiovascular: Reports no additional cardiovascular complaints Respiratory Respiratory: Reports no additional respiratory complaints Physical Exam Vital Signs: Vital Signs: Last Vital Signs Temp 97.8 F 06/19/21 15:44 Pulse 50 06/20/21 08:43 Resp 16 06/20/21 08:43 BP 133/66 06/20/21 08:43 Pulse Ox 100 06/20/21 08:43 Body Mass Index 11.7 General: lethargic, oriented to place and person, frail appearing Resp: diminsihed, no accessory muscles used CVS: S1,S2,RRR GI: soft, non tender, non distended Neuro: motor grossly intact, alert Psych: agitated, anxious skin: stage II ulcer as shown Objective Data Active Medications Acetaminophen (Acetaminophen 325 Mg Tablet) 650 mg PO Q6H PRN PRN Reason: Pain, Mild (Pain Scale 1-3) Atorvastatin Calcium (Atorvastatin Calcium 10 Mg Tablet) 10 mg PO BEDTIME COUNT INCLUDES THE [facility] Last Admin: 06/19/21 20:03 Dose: 10 mg Documented by: ZOEY Buprenorphine/Naloxone (Buprenorphine/Naloxone 4/1 Mg Film) 1 film SUBLINGUAL TID COUNT INCLUDES THE [facility] Last Admin: 06/20/21 08:29 Dose: 1 film Documented by: AARON Gabapentin (Gabapentin 100 Mg Capsule) 100 mg PO TID COUNT INCLUDES THE [facility] Last Admin: 06/20/21 08:32 Dose: 100 mg Documented by: AARON Heparin Sodium (Porcine) (Heparin Sodium,Porcine 5,000 Unit/Ml Vial) 5,000 unit SUBCUT Q12H COUNT INCLUDES THE [facility] Last Admin: 06/20/21 08:30 Dose: 5,000 unit Documented by: AARON Ceftriaxone Sodium 1 gm/ (Sodium Chloride) 50 mls @ 100 mls/hr IV Q24H COUNT INCLUDES THE [facility] Last Infusion: 06/20/21 09:11 Dose: 0 mls/hr Documented by: AARON Losartan Potassium (Losartan Potassium 50 Mg Tablet) 50 mg PO DAILY COUNT INCLUDES THE [facility]; Protocol Last Admin: 06/20/21 08:31 Dose: Not Given Documented by: AARON Non-Admin Reason: Decreased Heart Rate Melatonin (Melatonin 3 Mg Tablet) 6 mg PO BEDTIME PRN PRN Reason: Insomnia Pharmacy Consult (Consult Rx Perform Med Rec) 1 each MISCELLANE ONCE PRN PRN Reason: Consult order Senna (Sennosides 8.6 Mg Tablet) 17.2 mg PO BEDTIME PRN PRN Reason: Constipation Sodium Chloride (0.9 % Sodium Chloride Flush 3 Ml Syringe) 3 ml IVFLUSH QSHIFT CAPRI Last Admin: 06/20/21 08:29 Dose: 3 ml Documented by: AARON Trazodone HCl (Trazodone Hcl 100 Mg Tablet) 100 mg PO BEDTIME PRN PRN Reason: Insomnia Labs CBC & Chem 7: 06/20/21 07:48 06/20/21 07:48 Labs: Laboratory Results - last 24 hr 06/19/21 06/19/21 06/19/21 16:34 16:34 16:34 MCV 85.1 MCH 28.7 MCHC 33.8 RDW 16.9 H Plt Count 163 D MPV 9.0 L Immature Gran % (Auto) 0.5 H Neut % (Auto) 75.8 H Lymph % (Auto) 18.3 L Pierce % (Auto) 5.0 Eos % (Auto) 0.2 Baso % (Auto) 0.2 Lymph # (Auto) 1.2 Pierce # (Auto) 0.3 Eos # (Auto) 0.0 Baso # (Auto) 0.0 Abs Immat Gran (auto) 0.03 Absolute Neuts (auto) 4.9 Absolute Nucleated RBC 0.000 Nucleated RBC % (auto) 0.0 Anion Gap 12 Estim Creat Clear Calc 20.9 Estimated GFR 51 Random Glucose 98 Calcium 9.2 Total Bilirubin 0.8 AST 24 ALT 11 Alkaline Phosphatase 37 L Troponin I High Sens 34.7 H* D Total Protein 5.6 L Albumin 3.8 Urine Color Urine Appearance Urine pH Ur Specific [place] Urine Protein Urine Glucose (UA) Urine Ketones Urine Blood Urine Nitrite Ur Leukocyte Esterase Urine RBC Urine WBC Ur Squamous Epith Cells Amorphous Sediment Urine Bacteria Urine Opiates Screen Urine Fentanyl Screen Ur Barbiturates Screen Ur Phencyclidine Scrn Ur Amphetamines Screen U Benzodiazepines Scrn Urine Cocaine Screen U Marijuana (THC) Screen Ethyl Alcohol COVID-19 ([facility]ICK) COVID-19 Clin Com 06/19/21 06/19/21 06/19/21 16:34 16:34 16:34 MCV MCH MCHC RDW Plt Count MPV Immature Gran % (Auto) Neut % (Auto) Lymph % (Auto) Pierce % (Auto) Eos % (Auto) Baso % (Auto) Lymph # (Auto) Pierce # (Auto) Eos # (Auto) Baso # (Auto) Abs Immat Gran (auto) Absolute Neuts (auto) Absolute Nucleated RBC Nucleated RBC % (auto) Anion Gap Estim Creat Clear Calc Estimated GFR Random Glucose Calcium Total Bilirubin AST ALT Alkaline Phosphatase Troponin I High Sens Total Protein Albumin Urine Color YELLOW Urine Appearance HAZY Urine pH 5.5 Ur Specific [place] 1.020 Urine Protein TRACE Urine Glucose (UA) NEG Urine Ketones NEG Urine Blood 2+ H Urine Nitrite POS H Ur Leukocyte Esterase 3+ H Urine RBC 1-4 Urine WBC 76-150 H Ur Squamous Epith Cells NONE Amorphous Sediment 1+ Urine Bacteria TRACE Urine Opiates Screen Not Detected Urine Fentanyl Screen Not Detected Ur Barbiturates Screen Not Detected Ur Phencyclidine Scrn Not Detected Ur Amphetamines Screen Not Detected U Benzodiazepines Scrn Not Detected Urine Cocaine Screen Not Detected U Marijuana (THC) Screen Not Detected Ethyl Alcohol < 10 COVID-19 ([facility]ICK) COVID-19 Clin Com 06/19/21 06/19/21 06/20/21 18:37 18:37 07:48 MCV 82.8 MCH 28.9 MCHC 34.9 RDW 16.6 H Plt Count 144 L MPV 9.7 Immature Gran % (Auto) 0.7 H Neut % (Auto) 64.4 Lymph % (Auto) 27.8 Pierce % (Auto) 6.7 Eos % (Auto) 0.2 Baso % (Auto) 0.2 Lymph # (Auto) 1.6 Pierce # (Auto) 0.4 Eos # (Auto) 0.0 Baso # (Auto) 0.0 Abs Immat Gran (auto) 0.04 H Absolute Neuts (auto) 3.7 Absolute Nucleated RBC 0.000 Nucleated RBC % (auto) 0.0 Anion Gap Estim Creat Clear Calc Estimated GFR Random Glucose Calcium Total Bilirubin AST ALT Alkaline Phosphatase Troponin I High Sens 31.4 H* Total Protein Albumin Urine Color Urine Appearance Urine pH Ur Specific [place] Urine Protein Urine Glucose (UA) Urine Ketones Urine Blood Urine Nitrite Ur Leukocyte Esterase Urine RBC Urine WBC Ur Squamous Epith Cells Amorphous Sediment Urine Bacteria Urine Opiates Screen Urine Fentanyl Screen Ur Barbiturates Screen Ur Phencyclidine Scrn Ur Amphetamines Screen U Benzodiazepines Scrn Urine Cocaine Screen U Marijuana (THC) Screen Ethyl Alcohol COVID-19 ([facility]) Negative COVID-19 Clin Com See Note 06/20/21 07:48 MCV MCH MCHC RDW Plt Count MPV Immature Gran % (Auto) Neut % (Auto) Lymph % (Auto) Pierce % (Auto) Eos % (Auto) Baso % (Auto) Lymph # (Auto) Pierce # (Auto) Eos # (Auto) Baso # (Auto) Abs Immat Gran (auto) Absolute Neuts (auto) Absolute Nucleated RBC Nucleated RBC % (auto) Anion Gap 8 L Estim Creat Clear Calc 35.1 Estimated GFR > 60 Random Glucose 144 H Calcium 8.1 L D Total Bilirubin AST ALT Alkaline Phosphatase Troponin I High Sens Total Protein Albumin Urine Color Urine Appearance Urine pH Ur Specific [place] Urine Protein Urine Glucose (UA) Urine Ketones Urine Blood Urine Nitrite Ur Leukocyte Esterase Urine RBC Urine WBC Ur Squamous Epith Cells Amorphous Sediment Urine Bacteria Urine Opiates Screen Urine Fentanyl Screen Ur Barbiturates Screen Ur Phencyclidine Scrn Ur Amphetamines Screen U Benzodiazepines Scrn Urine Cocaine Screen U Marijuana (THC) Screen Ethyl Alcohol COVID-19 ([facility]) COVID-19 Clin Com Microbiology Microbiology Results: Microbiology 06/19/21 16:59 Urine Culture - Preliminary Urine Catheterized - Daniels Catheter Culture in progress. Assessment and Plan (1) AMS (altered mental status): Status: Acute (2) UTI (urinary tract infection): Status: Acute Assessment and Plan: 75F presented with ams metabolic encephalopathy due to UTI [place], follow up cultures COPD stable severe protein calorie malnutrition encourage po opiate dependence suboxone decubitus ulcer local care mildly elevated troponins follow up cardiology dvt prophylaxis - heparin Quality Stroke Does the patient have a stroke diagnosis?: No VTE Prior VTE?: No VTE Risk Level:: Medical - moderate - high VTE Device Contraindication: Treatment Not Indicated VTE Drug Contraindication: N/A - Med Ordered
--- NOTE | 2021-06-20 11:29 | PC.NURSE ---
Skin/Wound assessment completed. Patient is very thin and fragile. She has a Stage 2 pressure ulcers to her coccyx and sacrum, Triad applied covered with foam dressing. Stage 1 to mid back covered with foam dressing. Patient has heel protectors in place to prevent pressure sores. Repositioning occurring every 1-[address] bed in place.
--- NOTE | 2021-06-20 12:02 | P.CONCA_ITS ---
History of Present Illness History of Present Illness Date of Service: 06/20/21 Requesting physician: Tyrel Macias Chief complaint: AMS, + troponin Narrative: 75-year-old female with background history of hypertension, hyperlipidemia, opiate dependence on Suboxone, chronic back pain, degenerative joint disease and cervical cancer who is presenting with confusion. She was noticed to have Elevated high sensitivity troponin level of 10, 34 and 31. patient is very confused and no history is possible from her. EKG reviewed showing sinus rhythm 61 beats per minute, normal axis, nonspecific T-wave changes, QT interval 422 milliseconds. [facility] Past Medical History Medical History Cervical cancer Chronic back pain Depression DJD (degenerative joint disease) High cholesterol HTN (hypertension) Family History Family History Mother No problems noted. Father No problems noted. Surgical History Surgical History History of Social History Social History Household Members: Unknown / Unable to assess Housing: House Unable to assess alcohol history related to: Unknown Alcohol intake: unknown Patient Tobacco Use Status: Current everyday Tobacco user Tobacco use type: Cigarette Cigarettes Per Day: 15 e-Cigarette/Vaping Use: Never Used Second Hand Smoke Exposure: No Use of substances other than those prescribed or required for medical reasons: Unknown Advance Directives: Yes Advance Directives on File: Yes Advance Directives Date on File: 01/22/21 Do you have thoughts of harming others: None Do you have a plan to hurt others: No Plan Recently lost weight without trying: Yes How much weight loss: Unsure Eating poorly because of decreased appetite: Yes Nutrition screen score: 5 Nutrition Risks: Anorexia and Poor intake 0-25% >4 days Patient : No : No Poor oral hygiene: No service: No Current occupational status: retired and disabled Meds Allergies Allergy/AdvReac Type Severity Reaction Status Date / Time amoxicillin [AMOXICILLIN] Allergy Intermediate HIVES Verified 03/22/21 09:48 acetaminophen [Tylenol] Allergy Mild stomach Verified 03/22/21 09:48 upset penicillin V Allergy Mild Itching Verified 03/22/21 09:48 Penicillins [PENICILLINS] Allergy Mild Itching Verified 03/22/21 09:48 Eric inhibitors Allergy Unknown Unknown Uncoded 01/22/21 00:07 Clindamycin HCl AdvReac Mild Diarrhea Uncoded 01/22/21 00:07 Active Medications: Current Medications Acetaminophen (Acetaminophen 325 Mg Tablet) 650 mg PO Q6H PRN PRN Reason: Pain, Mild (Pain Scale 1-3) Atorvastatin Calcium (Atorvastatin Calcium 10 Mg Tablet) 10 mg PO BEDTIME [facility] Last Admin: 06/19/21 20:03 Dose: 10 mg Documented by: Buprenorphine/Naloxone (Buprenorphine/Naloxone 4/1 Mg Film) 1 film SUBLINGUAL TID [facility] Last Admin: 06/20/21 08:29 Dose: 1 film Documented by: Gabapentin (Gabapentin 100 Mg Capsule) 100 mg PO TID [facility] Last Admin: 06/20/21 08:32 Dose: 100 mg Documented by: Heparin Sodium (Porcine) (Heparin Sodium,Porcine 5,000 Unit/Ml Vial) 5,000 unit SUBCUT Q12H [facility] Last Admin: 06/20/21 08:30 Dose: 5,000 unit Documented by: Ceftriaxone Sodium 1 gm/ (Sodium Chloride) 50 mls @ 100 mls/hr IV Q24H [facility] Last Infusion: 06/20/21 09:11 Dose: Infused Documented by: Losartan Potassium (Losartan Potassium 50 Mg Tablet) 50 mg PO DAILY [facility]; Protocol Last Admin: 06/20/21 08:31 Dose: Not Given Documented by: Melatonin (Melatonin 3 Mg Tablet) 6 mg PO BEDTIME PRN PRN Reason: Insomnia Pharmacy Consult (Consult Rx Perform Med Rec) 1 each MISCELLANE ONCE PRN PRN Reason: Consult order Senna (Sennosides 8.6 Mg Tablet) 17.2 mg PO BEDTIME PRN PRN Reason: Constipation Sodium Chloride (0.9 % Sodium Chloride Flush 3 Ml Syringe) 3 ml IVFLUSH QSHIFT [facility] Last Admin: 06/20/21 08:29 Dose: 3 ml Documented by: Trazodone HCl (Trazodone Hcl 100 Mg Tablet) 100 mg PO BEDTIME PRN PRN Reason: Insomnia Home Medications Medication Instructions Recorded Confirmed Last Taken Type gabapentin 100 mg capsule 1 cap PO TID 01/22/21 06/19/21 06/19/21 History losartan 50 mg tablet 50 mg PO DAILY 01/22/21 06/19/21 06/19/21 History trazodone 100 mg tablet 100 mg PO BEDTIME PRN 01/22/21 06/19/21 06/18/21 History simvastatin 20 mg tablet 20 mg PO BEDTIME 04/23/21 06/19/21 06/18/21 History Physical Exam Vital Signs: Vital Signs: Last Vital Signs Temp 97.8 F 06/19/21 15:44 Pulse 50 06/20/21 08:43 Resp 16 06/20/21 08:43 BP 133/66 06/20/21 08:43 Pulse Ox 100 06/20/21 08:43 Body Mass Index 11.7 GENERAL APPEARANCE: Thin, cachectic lady. confused. NECK: no carotid bruit, no jugular venous distention. SKIN: no suspicious lesions, warm and dry. HEART: no murmurs, regular rate and rhythm. LUNGS: clear to auscultation bilaterally. ABDOMEN: soft, nontender. EXTREMITIES: no edema. PERIPHERAL PULSES: equal. NEUROLOGIC: Confused. Moving all extremities. Results Labs and Meds Result diagrams: 06/20/21 07:48 06/20/21 07:48 Lab results: Laboratory Results - last 24 hr 06/19/21 06/19/21 06/19/21 16:34 16:34 16:34 WBC 6.4 RBC 4.35 Hgb 12.5 Hct 37.0 MCV 85.1 MCH 28.7 MCHC 33.8 RDW 16.9 H Plt Count 163 D MPV 9.0 L Immature Gran % (Auto) 0.5 H Neut % (Auto) 75.8 H Lymph % (Auto) 18.3 L [place] % (Auto) 5.0 Eos % (Auto) 0.2 Baso % (Auto) 0.2 Lymph # (Auto) 1.2 [place] # (Auto) 0.3 Eos # (Auto) 0.0 Baso # (Auto) 0.0 Abs Immat Gran (auto) 0.03 Absolute Neuts (auto) 4.9 Absolute Nucleated RBC 0.000 Nucleated RBC % (auto) 0.0 Sodium 134 L Potassium 4.0 Chloride 98 Carbon Dioxide 28 Anion Gap 12 BUN 36 H D Creatinine 1.06 Estim Creat Clear Calc 20.9 Estimated GFR 51 Random Glucose 98 Calcium 9.2 Total Bilirubin 0.8 AST 24 ALT 11 Alkaline Phosphatase 37 L Troponin I High Sens 34.7 H* D Total Protein 5.6 L Albumin 3.8 Urine Color Urine Appearance Urine pH Ur Specific [place] Urine Protein Urine Glucose (UA) Urine Ketones Urine Blood Urine Nitrite Ur Leukocyte Esterase Urine RBC Urine WBC Ur Squamous Epith Cells Amorphous Sediment Urine Bacteria Urine Opiates Screen Urine Fentanyl Screen Ur Barbiturates Screen Ur Phencyclidine Scrn Ur Amphetamines Screen U Benzodiazepines Scrn Urine Cocaine Screen U Marijuana (THC) Screen Ethyl Alcohol COVID-19 ([facility]) COVID-19 [employer] 06/19/21 06/19/21 06/19/21 16:34 16:34 16:34 WBC RBC Hgb Hct MCV MCH MCHC RDW Plt Count MPV Immature Gran % (Auto) Neut % (Auto) Lymph % (Auto) [place] % (Auto) Eos % (Auto) Baso % (Auto) Lymph # (Auto) [place] # (Auto) Eos # (Auto) Baso # (Auto) Abs Immat Gran (auto) Absolute Neuts (auto) Absolute Nucleated RBC Nucleated RBC % (auto) Sodium Potassium Chloride Carbon Dioxide Anion Gap BUN Creatinine Estim Creat Clear Calc Estimated GFR Random Glucose Calcium Total Bilirubin AST ALT Alkaline Phosphatase Troponin I High Sens Total Protein Albumin Urine Color YELLOW Urine Appearance HAZY Urine pH 5.5 Ur Specific [place] 1.020 Urine Protein TRACE Urine Glucose (UA) NEG Urine Ketones NEG Urine Blood 2+ H Urine Nitrite POS H Ur Leukocyte Esterase 3+ H Urine RBC 1-4 Urine WBC 76-150 H Ur Squamous Epith Cells NONE Amorphous Sediment 1+ Urine Bacteria TRACE Urine Opiates Screen Not Detected Urine Fentanyl Screen Not Detected Ur Barbiturates Screen Not Detected Ur Phencyclidine Scrn Not Detected Ur Amphetamines Screen Not Detected U Benzodiazepines Scrn Not Detected Urine Cocaine Screen Not Detected U Marijuana (THC) Screen Not Detected Ethyl Alcohol < 10 COVID-19 ([facility]ICK) COVID-19 [employer] 06/19/21 06/19/21 06/20/21 18:37 18:37 07:48 WBC 5.7 RBC 3.84 L Hgb 11.1 L Hct 31.8 L MCV 82.8 MCH 28.9 MCHC 34.9 RDW 16.6 H Plt Count 144 L MPV 9.7 Immature Gran % (Auto) 0.7 H Neut % (Auto) 64.4 Lymph % (Auto) 27.8 [place] % (Auto) 6.7 Eos % (Auto) 0.2 Baso % (Auto) 0.2 Lymph # (Auto) 1.6 [place] # (Auto) 0.4 Eos # (Auto) 0.0 Baso # (Auto) 0.0 Abs Immat Gran (auto) 0.04 H Absolute Neuts (auto) 3.7 Absolute Nucleated RBC 0.000 Nucleated RBC % (auto) 0.0 Sodium Potassium Chloride Carbon Dioxide Anion Gap BUN Creatinine Estim Creat Clear Calc Estimated GFR Random Glucose Calcium Total Bilirubin AST ALT Alkaline Phosphatase Troponin I High Sens 31.4 H* Total Protein Albumin Urine Color Urine Appearance Urine pH Ur Specific [place] Urine Protein Urine Glucose (UA) Urine Ketones Urine Blood Urine Nitrite Ur Leukocyte Esterase Urine RBC Urine WBC Ur Squamous Epith Cells Amorphous Sediment Urine Bacteria Urine Opiates Screen Urine Fentanyl Screen Ur Barbiturates Screen Ur Phencyclidine Scrn Ur Amphetamines Screen U Benzodiazepines Scrn Urine Cocaine Screen U Marijuana (THC) Screen Ethyl Alcohol COVID-19 ([facility]) Negative COVID-19 Clin Com See Note 06/20/21 07:48 WBC RBC Hgb Hct MCV MCH MCHC RDW Plt Count MPV Immature Gran % (Auto) Neut % (Auto) Lymph % (Auto) [place] % (Auto) Eos % (Auto) Baso % (Auto) Lymph # (Auto) [place] # (Auto) Eos # (Auto) Baso # (Auto) Abs Immat Gran (auto) Absolute Neuts (auto) Absolute Nucleated RBC Nucleated RBC % (auto) Sodium 132 L Potassium 3.4 Chloride 100 Carbon Dioxide 27 Anion Gap 8 L BUN 28 H Creatinine 0.82 Estim Creat Clear Calc 35.1 Estimated GFR > 60 Random Glucose 144 H Calcium 8.1 L D Total Bilirubin AST ALT Alkaline Phosphatase Troponin I High Sens Total Protein Albumin Urine Color Urine Appearance Urine pH Ur Specific [place] Urine Protein Urine Glucose (UA) Urine Ketones Urine Blood Urine Nitrite Ur Leukocyte Esterase Urine RBC Urine WBC Ur Squamous Epith Cells Amorphous Sediment Urine Bacteria Urine Opiates Screen Urine Fentanyl Screen Ur Barbiturates Screen Ur Phencyclidine Scrn Ur Amphetamines Screen U Benzodiazepines Scrn Urine Cocaine Screen U Marijuana (THC) Screen Ethyl Alcohol COVID-19 ([facility]) COVID-19 Clin Com Imaging Radiologist's impression: Impressions Chest X-Ray 06/19/21 15:53 IMPRESSION: Well-inflated lungs. Question 1.3 cm right upper lobe nodule. This is not appreciated on prior exam March 2021 exam. If there is clinical suspicion of a pneumonia, short-term follow-up chest x-ray following treatment would be recommended. If there is no clinical suspicion of infection or x-ray abnormality fails to resolve, chest CT scan would be recommended. Probable nipple shadow at the left lung base. Head CT 06/19/21 15:53 IMPRESSION: No acute intracranial pathology. Chronic volume loss with small vessel ischemic change. Chest CT 06/19/21 17:04 IMPRESSION: 1. Severe emphysematous changes once again demonstrated. 2. Incidentally found left upper lobe 8 x 3 x 8 mm disc shaped lung nodule. According to the UPDATED 2017 Fleischner Society recommendations, the advised follow-up imaging for a single 6-8 mm solid nodule is: LOW RISK PATIENT: CT at 6-12 months, then consider CT at 18-24 months. HIGH RISK PATIENT: CT at 6-12 months, then at 18-24 months. Assessment and Plan (1) AMS (altered mental status): Status: Acute (2) Elevated troponin: Status: Acute 75-year-old female with complex medical issues as above who is presenting with confusion. She has noticed to have mildly abnormal troponin level. EKG is normal. No history is possible from the patient. She has been diagnosed with urinary tract infection and started on antibiotics. I think mild troponin leak is due to UTI and type 2 injury. No clear information to point to overt acute coronary syndrome right now. As her mental status improved after antibiotics we can reassess her and os for symptoms. I do not recommend heparin drip right now. Thank you for allowing me to participate in the care of your patient. Please feel free to contact me if you have any questions. Procedures Date of Service Date of Service: 06/20/21
[2021-06-20 12:15] VITALS: BMI 15.1
--- NOTE | 2021-06-20 13:00 | MHC.CLN ---
Addendum entered by Zenia Oreilly, ANITA 06/20/21 13:01: agree with provider's assessment below see also clinical nutrition assessment Original Note: RE: CONSULT PT IS SEVERELY MALNOURISHED PT EXPERIENCED A SIGNIFICANT 15.4% WT LOSS X 6 MONTHS, SEVERE MUSCLE WASTING OF TEMPLES, AND HAS A BMI OF 15.2 PT STATED HER APPETITE HAS NOT BEEN GOOD FOR A LONG TIME BUT WAS UNABLE TO GIVE A TIME FRAME PT IS ALSO AT INCREASED NUTRITION RISK R/T TWO STAGE II PRESSURE INJURIES ON COCCYX AND SACRUM RECOMMEND ENSURE PLUS SUPPLEMENT BID TO PROVIDE 700 KCALS AND 32 GRAMS PROTEIN MONITOR PO INTAKE AND SUPPLEMENT ACCEPTANCE
[2021-06-20 16:00] VITALS: BP 121/70; PULSE 71; RESP 18; TEMP 36.7; O2SAT 98
[2021-06-20] MEDS: traZODone HCL 100 MG TABLET PO (19:42)
[2021-06-20] MEDS: Atorvastatin Calcium 10 MG TABLET PO (19:42)
[2021-06-21] VITALS: BP 119/73; PULSE 78; RESP 17; TEMP 36.5; O2SAT 99
[2021-06-21] MEDS: Acetaminophen 325 MG TABLET 650 MG PO (03:05)
[2021-06-21] MEDS: Melatonin 3 MG TABLET 6 MG PO ×2 (03:06→22:09)
[2021-06-21 06:58] LABS: Mean Corpuscular HGB Conc 34.2 g/dl (31.0-35.0); Mean Corpuscular Hemoglobin 28.6 pg (27.0-33.0); Mean Corpuscular Volume 83.7 fL (80-98); Mean Platelet Volume 9.1 fL (9.4-12.3); Platelet Count 146 X10*3/uL (160-400); Red Blood Count 4.54 X10*6/uL (4.20-5.50); Red Cell Distribution Width 16.5 % (11.0-16.0)
[2021-06-21 07:16] LABS: Anion Gap 13 (12-20); Blood Urea Nitrogen 27 mg/dL (9-16); Calcium 8.6 mg/dL (8.4-10.2); Carbon Dioxide 28 mmol/L (22-29); Chloride 98 mmol/L (96-108); Creatinine Clr Calc Pharmacy 33.2; Estimated Glomerular Filt Rate > 60; Glucose Fasting 86 mg/dL (60-99); Potassium 3.9 mmol/L (3.3-5.1); Sodium 135 mmol/L (135-145)
[2021-06-21 07:42] VITALS: BP 149/86; PULSE 63; RESP 18; TEMP 36.4; O2SAT 98
[2021-06-21] MEDS: Heparin Sodium,Porcine 5,000 UNIT/ML VIAL 5000 UNIT SUBCUT ×2 (08:01→20:03)
[2021-06-21] MEDS: cefTRIAXone sodium 1 GM in 0.9 % Sodium Chloride 50 ML IV (08:01)
[2021-06-21 08:02] VITALS: BP 149/86; PULSE 63
[2021-06-21] MEDS: Losartan Potassium 50 MG TABLET PO (08:02)
[2021-06-21] MEDS: Buprenorphine/Naloxone 4/1 mg FILM 1 FILM SUBLINGUAL ×3 (08:02→20:03)
[2021-06-21] MEDS: 0.9 % Sodium Chloride Flush 3 ML SYRINGE IVFLUSH ×3 (08:02→20:03)
[2021-06-21] MEDS: Gabapentin 100 MG CAPSULE PO ×3 (08:02→20:03)
[2021-06-21 09:49] VITALS: BP 149/86; PULSE 63
--- NOTE | 2021-06-21 10:09 | HO.PM.IMPN ---
Subjective Subjective Date of Service: 06/21/21 Interval History: cc: ams interval history: more alert today, not particularly talkative, feeling weak Cardiovascular Cardiovascular: Reports no additional cardiovascular complaints Respiratory Respiratory: Reports no additional respiratory complaints Physical Exam Vital Signs: Vital Signs: Last Vital Signs Temp 97.5 F 06/21/21 07:42 Pulse 63 06/21/21 09:49 Resp 18 06/21/21 07:42 BP 149/86 H 06/21/21 09:49 Pulse Ox 98 06/21/21 07:42 Body Mass Index 15.1 General: ao times 3, frail appearing Resp:? diminsihed, no accessory muscles used CVS: S1,S2,RRR GI: soft, non tender, non distended Neuro:? motor grossly intact, alert Psych: agitated, anxious skin: stage II ulcer as shown Objective Data Active Medications Acetaminophen (Acetaminophen 325 Mg Tablet) 650 mg PO Q6H PRN PRN Reason: Pain, Mild (Pain Scale 1-3) Last Admin: 06/21/21 03:05 Dose: 650 mg Documented by: GLORIA Atorvastatin Calcium (Atorvastatin Calcium 10 Mg Tablet) 10 mg PO BEDTIME [facility] Last Admin: 06/20/21 19:42 Dose: 10 mg Documented by: GLORIA Buprenorphine/Naloxone (Buprenorphine/Naloxone 4/1 Mg Film) 1 film SUBLINGUAL TID [facility] Last Admin: 06/21/21 08:02 Dose: 1 film Documented by: DANIEL Gabapentin (Gabapentin 100 Mg Capsule) 100 mg PO TID [facility] Last Admin: 06/21/21 08:02 Dose: 100 mg Documented by: DANIEL Heparin Sodium (Porcine) (Heparin Sodium,Porcine 5,000 Unit/Ml Vial) 5,000 unit SUBCUT Q12H [facility] Last Admin: 06/21/21 08:01 Dose: 5,000 unit Documented by: DANIEL Ceftriaxone Sodium 1 gm/ (Sodium Chloride) 50 mls @ 100 mls/hr IV Q24H [facility] Last Infusion: 06/21/21 08:47 Dose: 0 mls/hr Documented by: DANIEL Losartan Potassium (Losartan Potassium 50 Mg Tablet) 50 mg PO DAILY [facility]; Protocol Last Admin: 06/21/21 08:02 Dose: 50 mg Documented by: DANIEL Melatonin (Melatonin 3 Mg Tablet) 6 mg PO BEDTIME PRN PRN Reason: Insomnia Last Admin: 06/21/21 03:06 Dose: 6 mg Documented by: GLORIA Pharmacy Consult (Consult Rx Perform Med Rec) 1 each MISCELLANE ONCE PRN PRN Reason: Consult order Senna (Sennosides 8.6 Mg Tablet) 17.2 mg PO BEDTIME PRN PRN Reason: Constipation Sodium Chloride (0.9 % Sodium Chloride Flush 3 Ml Syringe) 3 ml IVFLUSH QSHIFT [facility] Last Admin: 06/21/21 08:02 Dose: 3 ml Documented by: DANIEL Trazodone HCl (Trazodone Hcl 100 Mg Tablet) 100 mg PO BEDTIME PRN PRN Reason: Insomnia Last Admin: 06/20/21 19:42 Dose: 100 mg Documented by: GLORIA Labs CBC & Chem 7: 06/21/21 06:16 06/21/21 06:17 Labs: Laboratory Results - last 24 hr 06/21/21 06/21/21 06:16 06:17 MCV 83.7 MCH 28.6 MCHC 34.2 RDW 16.5 H Plt Count 146 L MPV 9.1 L Absolute Nucleated RBC 0.000 Nucleated RBC % (auto) 0.0 Anion Gap 13 Estim Creat Clear Calc 33.2 Estimated GFR > 60 Fasting Glucose 86 Calcium 8.6 D Microbiology Microbiology Results: Microbiology 06/19/21 16:59 Urine Culture - Preliminary Urine Catheterized - Daniels Catheter Culture in progress. Assessment and Plan (1) AMS (altered mental status): Status: Acute (2) UTI (urinary tract infection): Status: Acute Assessment and Plan: 75F presented with ams metabolic encephalopathy due to UTI rocephin, follow up cultures COPD stable severe protein calorie malnutrition encourage po ?depression opiate dependence suboxone decubitus ulcer local care mildly elevated troponins follow up cardiology dvt prophylaxis - heparin Quality Stroke Does the patient have a stroke diagnosis?: No VTE Prior VTE?: No VTE Risk Level:: Medical - moderate - high VTE Device Contraindication: Treatment Not Indicated VTE Drug Contraindication: N/A - Med Ordered
--- NOTE | 2021-06-21 12:48 | PC.NURSE ---
Pt refused to go for CT scan. PT educated on reason for CT scan and possible risks for refusing. Dr Macias made aware.
--- NOTE | 2021-06-21 13:50 | MHC.CLN ---
F/U DOCUMENTATION SHOWS INTAKE 1 MEAL OF 100% SINCE ADMISSION. SIGNIFICANT WEIGHT LOSS AND POOR INTAKE NOTED IN NUTRITION ASSESSMENT. CONTINUE WITH CARDIAC DIET AND ENSURE SUPPLEMENT. MONITOR INTAKE, SUPPLEMENT ACCEPTANCE AND WOUNDS.
--- NOTE | 2021-06-21 15:01 | MHC.CM.PN ---
Addendum entered by Lizeth Figueroa RN 06/21/21 15:13: PT VERIFIES PCP MEG LIU AND HCP SAPNA ARANGO, COPY ON FILE FROM PREVIOUS VISIT. Original Note: IMM 06/21/21, EMR REVIEWED PT ADMITTED W/ AMS AND ELEVATED TROPININ, PER HOSPITALIST PT MAY NEED GERIPSYCH EVAL D/T DEPRESSION ONCE MEDICALLY CLEARED, CM MET W/PT WHO REPORTS SHE IS BEDBOUND AT HOME, REPORTS HER ASSISTS W/CARE AND HAS NO DIPPER FISH/HOME HEALTH AID, PT DOES REPORT ALLIED [facility] HOWEVER UNSURE HOW FREQUENTLY THEY VISIT, PT APPEARS SAD AND DEPRESSED HOWEVER CM UNABLE TO DISCUSS WOUND CARE NURSE CAME IN TO COMPLETE TREATMENTS, HOSPITALIST WILL ORDER CARE TEAM/PSYCH EVAL ONCE READY FOR D/C. D/C PLAN: HOME W/RESUMP OF ALLIED [facility] VS GERIPSYCH ADMIT, TRANSPORT TBD
[2021-06-21 16:00] VITALS: BP 136/74; PULSE 64; RESP 16; TEMP 36.9; O2SAT 97
[2021-06-21] MEDS: Atorvastatin Calcium 10 MG TABLET PO (20:03)
[2021-06-21 21:19] VITALS: BP 149/90; PULSE 87; TEMP 36.2; O2SAT 99
[2021-06-21] MEDS: traZODone HCL 100 MG TABLET PO (21:20)
[2021-06-22] VITALS: BP 134/65; PULSE 89; RESP 18; O2SAT 98
[2021-06-22] MEDS: Acetaminophen 325 MG TABLET 650 MG PO (00:25)
[2021-06-22] MEDS: diphenhydrAMINE HCL 25 MG TABLET PO (01:10)
[2021-06-22 08:00] VITALS: BP 141/68; PULSE 59; RESP 18; TEMP 36.5; O2SAT 97
[2021-06-22] MEDS: Gabapentin 100 MG CAPSULE PO ×3 (10:08→20:43)
[2021-06-22] MEDS: Heparin Sodium,Porcine 5,000 UNIT/ML VIAL 5000 UNIT SUBCUT ×2 (10:08→20:43)
[2021-06-22] MEDS: Buprenorphine/Naloxone 4/1 mg FILM 1 FILM SUBLINGUAL ×3 (10:08→20:43)
[2021-06-22] MEDS: Losartan Potassium 50 MG TABLET PO (10:08)
[2021-06-22] MEDS: cefTRIAXone sodium 1 GM in 0.9 % Sodium Chloride 50 ML IV (10:09)
[2021-06-22] MEDS: 0.9 % Sodium Chloride Flush 3 ML SYRINGE IVFLUSH ×3 (10:10→20:43)
--- NOTE | 2021-06-22 11:14 | HO.PM.IMPN ---
Subjective Subjective Date of Service: 06/22/21 Interval History: cc: ams interval history: back to baseline mental status, not participatory in conversation Cardiovascular Cardiovascular: Reports no additional cardiovascular complaints Respiratory Respiratory: Reports no additional respiratory complaints Physical Exam Vital Signs: Vital Signs: Last Vital Signs Temp 97.7 F 06/22/21 08:00 Pulse 59 06/22/21 08:00 Resp 18 06/22/21 08:00 BP 141/68 H 06/22/21 08:00 Pulse Ox 97 06/22/21 08:00 Body Mass Index 15.1 General: ao times 3, frail appearing, cachexic Resp:? diminsihed, no accessory muscles used CVS: S1,S2,RRR GI: soft, non tender, non distended Neuro:? motor grossly intact, alert Psych: agitated, anxious skin: stage II ulcer as shown Objective Data Active Medications Acetaminophen (Acetaminophen 325 Mg Tablet) 650 mg PO Q6H PRN PRN Reason: Pain, Mild (Pain Scale 1-3) Last Admin: 06/22/21 00:25 Dose: 650 mg Documented by: CECE Atorvastatin Calcium (Atorvastatin Calcium 10 Mg Tablet) 10 mg PO BEDTIME [facility] Last Admin: 06/21/21 20:03 Dose: 10 mg Documented by: CECE Buprenorphine/Naloxone (Buprenorphine/Naloxone 4/1 Mg Film) 1 film SUBLINGUAL TID [facility] Last Admin: 06/22/21 10:08 Dose: 1 film Documented by: BALWINDER Gabapentin (Gabapentin 100 Mg Capsule) 100 mg PO TID [facility] Last Admin: 06/22/21 10:08 Dose: 100 mg Documented by: BALWINDER Heparin Sodium (Porcine) (Heparin Sodium,Porcine 5,000 Unit/Ml Vial) 5,000 unit SUBCUT Q12H [facility] Last Admin: 06/22/21 10:08 Dose: 5,000 unit Documented by: BALWINDER Ceftriaxone Sodium 1 gm/ (Sodium Chloride) 50 mls @ 100 mls/hr IV Q24H [facility] Last Infusion: 06/22/21 10:49 Dose: 0 mls/hr Documented by: BALWINDER Losartan Potassium (Losartan Potassium 50 Mg Tablet) 50 mg PO DAILY [facility]; Protocol Last Admin: 06/22/21 10:08 Dose: 50 mg Documented by: BALWINDER Melatonin (Melatonin 3 Mg Tablet) 6 mg PO BEDTIME PRN PRN Reason: Insomnia Last Admin: 06/21/21 22:09 Dose: 6 mg Documented by: CECE Pharmacy Consult (Consult Rx Perform Med Rec) 1 each MISCELLANE ONCE PRN PRN Reason: Consult order Senna (Sennosides 8.6 Mg Tablet) 17.2 mg PO BEDTIME PRN PRN Reason: Constipation Sodium Chloride (0.9 % Sodium Chloride Flush 3 Ml Syringe) 3 ml IVFLUSH QSHIFT [facility] Last Admin: 06/22/21 10:10 Dose: 3 ml Documented by: BALWINDER Trazodone HCl (Trazodone Hcl 100 Mg Tablet) 100 mg PO BEDTIME PRN PRN Reason: Insomnia Last Admin: 06/21/21 21:20 Dose: 100 mg Documented by: CECE Labs CBC & Chem 7: 06/21/21 06:16 06/21/21 06:17 Microbiology Microbiology Results: Microbiology 06/19/21 16:59 Urine Culture - Final Urine Catheterized - Daniels Catheter Staphylococcus lugdunensis Assessment and Plan (1) AMS (altered mental status): Status: Acute (2) UTI (urinary tract infection): Status: Acute Assessment and Plan: 75F presented with ams metabolic encephalopathy due to UTI encephalopathy resolved culture grew staph lugdenesens, continue rocephin COPD stable severe protein calorie malnutrition encourage po ?depression/anorexia psych eval opiate dependence suboxone decubitus ulcer local care mildly elevated troponins cardio appreciated, unlikely acs dvt prophylaxis - heparin Quality Stroke Does the patient have a stroke diagnosis?: No VTE Prior VTE?: No VTE Risk Level:: Medical - moderate - high VTE Device Contraindication: Treatment Not Indicated VTE Drug Contraindication: N/A - Med Ordered
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
[2021-06-22 15:55] VITALS: BP 130/60; PULSE 69; RESP 16; TEMP 36; O2SAT 100
[2021-06-22] MEDS: Atorvastatin Calcium 10 MG TABLET PO (20:43)
[2021-06-22] MEDS: Melatonin 3 MG TABLET 6 MG PO (20:43)
[2021-06-23] VITALS: BP 125/69; PULSE 64; RESP 14; TEMP 36.1; O2SAT 97
[2021-06-23 08:00] VITALS: BP 136/71; PULSE 58; RESP 18; TEMP 36.4; O2SAT 99
--- NOTE | 2021-06-23 09:23 | P.PNIM_ITS ---
Subjective Subjective Date of Service: 06/23/21 Interval History: cc: ams interval history: back to baseline mental status, not participatory in conversation Cardiovascular Cardiovascular: Reports no additional cardiovascular complaints Respiratory Respiratory: Reports no additional respiratory complaints Physical Exam Vital Signs: Vital Signs: Last Vital Signs Temp 97.5 F 06/23/21 08:00 Pulse 58 06/23/21 08:00 Resp 18 06/23/21 08:00 BP 136/71 06/23/21 08:00 Pulse Ox 99 06/23/21 08:00 Body Mass Index 15.1 General: ao times 3, frail appearing, cachexic Resp:? diminsihed, no accessory muscles used CVS: S1,S2,RRR GI: soft, non tender, non distended Neuro:? motor grossly intact, alert Psych: agitated, anxious skin: stage II ulcer as shown Objective Data Active Medications Acetaminophen (Acetaminophen 325 Mg Tablet) 650 mg PO Q6H PRN PRN Reason: Pain, Mild (Pain Scale 1-3) Last Admin: 06/22/21 00:25 Dose: 650 mg Documented by: CECE Atorvastatin Calcium (Atorvastatin Calcium 10 Mg Tablet) 10 mg PO BEDTIME [facility] Last Admin: 06/22/21 20:43 Dose: 10 mg Documented by: ALBA Buprenorphine/Naloxone (Buprenorphine/Naloxone 4/1 Mg Film) 1 film SUBLINGUAL TID [facility] Last Admin: 06/22/21 20:43 Dose: 1 film Documented by: ALBA Escitalopram Oxalate (Escitalopram Oxalate 5 Mg Tablet) 5 mg PO DAILY [facility] Gabapentin (Gabapentin 100 Mg Capsule) 100 mg PO TID [facility] Last Admin: 06/22/21 20:43 Dose: 100 mg Documented by: ALBA Heparin Sodium (Porcine) (Heparin Sodium,Porcine 5,000 Unit/Ml Vial) 5,000 unit SUBCUT Q12H [facility] Last Admin: 06/22/21 20:43 Dose: 5,000 unit Documented by: ALBA Ceftriaxone Sodium 1 gm/ (Sodium Chloride) 50 mls @ 100 mls/hr IV Q24H [facility] Last Infusion: 06/22/21 10:49 Dose: 0 mls/hr Documented by: BALWINDER Losartan Potassium (Losartan Potassium 50 Mg Tablet) 50 mg PO DAILY [facility]; Protocol Last Admin: 06/22/21 10:08 Dose: 50 mg Documented by: BALWINDER Melatonin (Melatonin 3 Mg Tablet) 6 mg PO BEDTIME PRN PRN Reason: Insomnia Last Admin: 06/22/21 20:43 Dose: 6 mg Documented by: ALBA Pharmacy Consult (Consult Rx Perform Med Rec) 1 each MISCELLANE ONCE PRN PRN Reason: Consult order Senna (Sennosides 8.6 Mg Tablet) 17.2 mg PO BEDTIME PRN PRN Reason: Constipation Sodium Chloride (0.9 % Sodium Chloride Flush 3 Ml Syringe) 3 ml IVFLUSH QSHIFT [facility] Last Admin: 06/22/21 20:43 Dose: 3 ml Documented by: ALBA Trazodone HCl (Trazodone Hcl 100 Mg Tablet) 100 mg PO BEDTIME PRN PRN Reason: Insomnia Last Admin: 06/21/21 21:20 Dose: 100 mg Documented by: GALILEORISMartín Labs CBC & Chem 7: 06/21/21 06:16 06/21/21 06:17 Microbiology Microbiology Results: Microbiology 06/19/21 16:59 Urine Culture - Final Urine Catheterized - Daniels Catheter Staphylococcus lugdunensis Assessment and Plan (1) AMS (altered mental status): Status: Acute (2) UTI (urinary tract infection): Status: Acute Assessment and Plan: 75F presented with ams metabolic encephalopathy due to UTI encephalopathy resolved culture grew staph lugdenesens, continue rocephin day 4/5 COPD stable severe protein calorie malnutrition encourage po ?depression/anorexia psych appreciated, started lexapro opiate dependence suboxone decubitus ulcer local care mildly elevated troponins cardio appreciated, unlikely acs dvt prophylaxis - heparin Quality Stroke Does the patient have a stroke diagnosis?: No VTE Prior VTE?: No VTE Risk Level:: Medical - moderate - high VTE Device Contraindication: Treatment Not Indicated VTE Drug Contraindication: N/A - Med Ordered
[2021-06-23] MEDS: cefTRIAXone sodium 1 GM in 0.9 % Sodium Chloride 50 ML IV (09:38)
[2021-06-23] MEDS: Gabapentin 100 MG CAPSULE PO ×3 (09:39→19:41)
[2021-06-23] MEDS: Losartan Potassium 50 MG TABLET PO (09:39)
[2021-06-23] MEDS: Buprenorphine/Naloxone 4/1 mg FILM 1 FILM SUBLINGUAL ×3 (09:39→19:40)
[2021-06-23] MEDS: Escitalopram Oxalate 5 MG TABLET PO (09:39)
[2021-06-23] MEDS: Heparin Sodium,Porcine 5,000 UNIT/ML VIAL 5000 UNIT SUBCUT ×2 (09:40→19:41)
[2021-06-23] MEDS: 0.9 % Sodium Chloride Flush 3 ML SYRINGE IVFLUSH ×3 (09:40→19:44)
[2021-06-23 15:48] VITALS: BP 147/76; PULSE 98; RESP 16; TEMP 36.1; O2SAT 98
[2021-06-23] MEDS: Atorvastatin Calcium 10 MG TABLET PO (19:40)
[2021-06-23] MEDS: traZODone HCL 100 MG TABLET PO (19:41)
[2021-06-23] MEDS: Melatonin 3 MG TABLET 6 MG PO (19:41)
[2021-06-24] VITALS: BP 105/57; PULSE 76; RESP 17; TEMP 36.2; O2SAT 95
[2021-06-24] MEDS: diphenhydrAMINE HCL 25 MG TABLET PO (00:43)
[2021-06-24 05:52] LABS: Hematocrit 34.5 % (37.0-47.0); Mean Corpuscular HGB Conc 34.8 g/dl (31.0-35.0); Mean Corpuscular Hemoglobin 28.9 pg (27.0-33.0); Mean Corpuscular Volume 83.1 fL (80.0-98.0); Mean Platelet Volume 9.7 fL (9.4-12.3); NRBC Pct Auto 0.3 /100WBC (0.0-0.2); Platelet Count 150 X10*3/uL (160-400); Red Blood Count 4.15 X10*6/uL (4.20-5.50); Red Cell Distribution Width 17.2 % (11.0-16.0); White Blood Count 8.9 X10*3/uL (4.8-10.8)
[2021-06-24 06:54] LABS: Anion Gap 17 (12-20); Calcium 8.7 mg/dL (8.4-10.2); Carbon Dioxide 24 mmol/L (22-29); Chloride 102 mmol/L (96-108); Creatinine Clr Calc Pharmacy 24.2; Estimated Glomerular Filt Rate 44; Glucose Fasting 131 mg/dL (60-99); Magnesium 2.6 mg/dL (1.6-2.6); Potassium 3.4 mmol/L (3.3-5.1); Sodium 140 mmol/L (135-145)
[2021-06-24 07:04] LABS: Blood Urea Nitrogen 73 mg/dL (9-16)
[2021-06-24 08:00] VITALS: BP 133/72; PULSE 72; RESP 16; TEMP 36.6; O2SAT 98
[2021-06-24] MEDS: Losartan Potassium 50 MG TABLET PO (08:52)
[2021-06-24] MEDS: Gabapentin 100 MG CAPSULE PO ×3 (08:52→19:56)
[2021-06-24] MEDS: Heparin Sodium,Porcine 5,000 UNIT/ML VIAL 5000 UNIT SUBCUT ×2 (08:53→19:56)
[2021-06-24] MEDS: cefTRIAXone sodium 1 GM in 0.9 % Sodium Chloride 50 ML IV (08:53)
[2021-06-24] MEDS: Escitalopram Oxalate 5 MG TABLET PO (08:53)
[2021-06-24] MEDS: 0.9 % Sodium Chloride Flush 3 ML SYRINGE IVFLUSH ×3 (08:54→19:55)
[2021-06-24] MEDS: Buprenorphine/Naloxone 4/1 mg FILM 1 FILM SUBLINGUAL ×3 (08:54→19:55)
--- NOTE | 2021-06-24 09:47 | PM.DS ---
DS: Providers Provider Date of Service: 06/24/21 Date of admission: 06/19/21 19:14 Primary care physician: Franklin Guerrero MD Consults: 06/19/21 19:24 Consult to Cardiology Routine Consulting Provider: Tyron Mckeon Reason for consultation: High troponins 06/22/21 11:12 Consult to Psychiatry Routine Consulting Provider: Psych Covering Reason for consultation: ? depression, anorexia, does not appear to have medical cause DS: Diagnosis Discharge Diagnosis (1) Opioid use disorder: Status: Acute (2) Major depressive disorder, recurrent episode with melancholic features: Status: Acute (3) UTI (urinary tract infection): Status: Acute DS: Summary Hospital Course Hospital Course: Patient was admitted for metabolic encephalopathy due to urinary tract infection. Patient was treated with 5 days of IV ceftriaxone. Urine culture grew staphylococcus lugdenesens. Encephalopathy resolved. Blood cultures were negative. Patient was also assessed for her severe protein calorie malnutrition. She had lost 50lbs over several months. Malignancy could not be fully excluded as patient refused age-appropriate cancer workup, which should be pursued as outpatient. However, suspicion is this is depression with anorexia. She was evaluated by Psychiatry who recommended starting Lexapro 5 mg daily. She should follow up with them as an outpatient. she will be discharged to SNF. Time Spent with Patient Time attestation: Total time spent providing and/or coordinating discharge services: Discharge coordination time: Greater than 30 minutes Quality: Stroke Does the patient have a stroke diagnosis?: No Physical Exam Vital Signs: Vital Signs: Last Vital Signs Temp 97.8 F 06/24/21 08:00 Pulse 72 06/24/21 08:00 Resp 16 06/24/21 08:00 BP 133/72 06/24/21 08:00 Pulse Ox 98 06/24/21 08:00 Body Mass Index 15.1 General: ao times 3, frail appearing, cachexic Resp:? diminsihed, no accessory muscles used CVS: S1,S2,RRR GI: soft, non tender, non distended Neuro:? motor grossly intact, alert Psych: agitated, anxious skin: stage II ulcer as shown DS: Data Data Completed and Pending Labs on day of discharge: Laboratory Results - last 24 hr 06/24/21 06/24/21 05:27 05:27 WBC 8.9 RBC 4.15 L Hgb 12.0 Hct 34.5 L MCV 83.1 MCH 28.9 MCHC 34.8 RDW 17.2 H Plt Count 150 L MPV 9.7 Absolute Nucleated RBC 0.030 H Nucleated RBC % (auto) 0.3 H Sodium 140 Potassium 3.4 Chloride 102 Carbon Dioxide 24 Anion Gap 17 BUN 73 H D Creatinine 1.19 Estim Creat Clear Calc 24.2 Estimated GFR 44 Fasting Glucose 131 H Calcium 8.7 Magnesium 2.6 Discharge Plan Discharge Patient Disposition: Home Health Service Discharge Diagnosis: uti Referrals: Sofia MARCUM [Outside] - 1 Day ([facility], PLEASE CALL [phone] IF YOU DO NOT HEAR FROM A NURSE BY NOON ON 06/25/21. ) Andra Rock APRN [Physician] - 1 Week Franklin Guerrero MD [Primary Care Provider] - 1 Week Discharge Medications: New escitalopram oxalate 5 mg Tablet 5 mg PO DAILY Qty: 30 RF: 0 Continued mirtazapine 15 mg tablet 15 mg PO BEDTIME Qty: 90 RF: 8 simvastatin 20 mg Tablet 20 mg PO BEDTIME RF: 0 losartan 50 mg tablet 50 mg PO DAILY RF: 0 trazodone 100 mg tablet 100 mg PO BEDTIME PRN (Reason: Insomnia) RF: 0 gabapentin 100 mg capsule 1 cap PO TID RF: 0 buprenorphine-naloxone [Suboxone] 4-1 mg film 1 film sublingual TID Qty: 42 RF: 0 Diet: advance to usual diet Activity on Discharge: As tolerated Stand Alone Forms: Patient Portal Discharge page Care Plan Goals: recovery Health Concerns: anorexia, depression, uti Plan of Treatment: start lexapro, follow up with psychiatry Assessment: see above
--- NOTE | 2021-06-24 09:50 | W.MHC.F2F ---
Service Date Service Date: 06/24/21 Encounter Date of encounter: 06/24/21 Reasons for Services Reason for halfway: medication management and teach disease management Homebound: Leaving the home is medically contraindicated at this time without the asist of a device and/or another person due th the listed conditions above and below. Certification: Based on the above findings, I certify that this patient is confined to the home and needs intermittent halfway care, physical therapy and/or speech therapy, or continues to need occupational therapy. The patient is under my care, and I have initiated the establishment of the plan of care. The patient will be followed by a physician who will periodically review the plan of care.
--- NOTE | 2021-06-24 12:11 | MHC.CM.PN ---
PT DISCHARGING HOME W/NEW [facility] FOR [facility], PER PT'S HE HAS DIFFICULTY TRANSFERRING PT IN AND OUT OF CAR SHE IS BED BOUND AND TRANSPORT HAS BEEN ARRANGED FOR 2PM W/ACTION FOR BLS. PT SEEN BY PSYCH AND HAS BEEN CLEARED TO D//C HOME AND HAS BEEN STARTED ON LEXAPRO FOR DEPRESSION.
--- NOTE | 2021-06-24 15:30 | HO.PM.IMPN ---
Subjective Subjective Date of Service: 06/24/21 Interval History: cc: ams interval history: back to baseline mental status, not participatory in conversation Cardiovascular Cardiovascular: Reports no additional cardiovascular complaints Respiratory Respiratory: Reports no additional respiratory complaints Physical Exam Vital Signs: Vital Signs: Last Vital Signs Temp 97.8 F 06/24/21 08:00 Pulse 72 06/24/21 08:00 Resp 16 06/24/21 08:00 BP 133/72 06/24/21 08:00 Pulse Ox 98 06/24/21 08:00 Body Mass Index 15.1 General: ao times 3, frail appearing, cachexic Resp:? diminsihed, no accessory muscles used CVS: S1,S2,RRR GI: soft, non tender, non distended Neuro:? motor grossly intact, alert Psych: agitated, anxious skin: stage II ulcer as shown Objective Data Active Medications Acetaminophen (Acetaminophen 325 Mg Tablet) 650 mg PO Q6H PRN PRN Reason: Pain, Mild (Pain Scale 1-3) Last Admin: 06/22/21 00:25 Dose: 650 mg Documented by: CECE Atorvastatin Calcium (Atorvastatin Calcium 10 Mg Tablet) 10 mg PO BEDTIME [facility] Last Admin: 06/23/21 19:40 Dose: 10 mg Documented by: CASTILMartín Buprenorphine/Naloxone (Buprenorphine/Naloxone 4/1 Mg Film) 1 film SUBLINGUAL TID [facility] Last Admin: 06/24/21 14:44 Dose: 0.5 film Documented by: ARSALAN Comments: patient only wanted half Escitalopram Oxalate (Escitalopram Oxalate 5 Mg Tablet) 5 mg PO DAILY [facility] Last Admin: 06/24/21 08:53 Dose: 5 mg Documented by: ARSALAN Gabapentin (Gabapentin 100 Mg Capsule) 100 mg PO TID [facility] Last Admin: 06/24/21 14:44 Dose: 100 mg Documented by: ARSALAN Heparin Sodium (Porcine) (Heparin Sodium,Porcine 5,000 Unit/Ml Vial) 5,000 unit SUBCUT Q12H [facility] Last Admin: 06/24/21 08:53 Dose: 5,000 unit Documented by: ARSALAN Ceftriaxone Sodium 1 gm/ (Sodium Chloride) 50 mls @ 100 mls/hr IV Q24H [facility] Last Infusion: 06/24/21 09:45 Dose: 0 mls/hr Documented by: ARSALAN Losartan Potassium (Losartan Potassium 50 Mg Tablet) 50 mg PO DAILY [facility]; Protocol Last Admin: 06/24/21 08:52 Dose: 50 mg Documented by: ARSALAN Melatonin (Melatonin 3 Mg Tablet) 6 mg PO BEDTIME PRN PRN Reason: Insomnia Last Admin: 06/23/21 19:41 Dose: 6 mg Documented by: ENRIQUE Pharmacy Consult (Consult Rx Perform Med Rec) 1 each MISCELLANE ONCE PRN PRN Reason: Consult order Senna (Sennosides 8.6 Mg Tablet) 17.2 mg PO BEDTIME PRN PRN Reason: Constipation Sodium Chloride (0.9 % Sodium Chloride Flush 3 Ml Syringe) 3 ml IVFLUSH QSHIFT [facility] Last Admin: 06/24/21 08:54 Dose: 3 ml Documented by: ARSALAN Trazodone HCl (Trazodone Hcl 100 Mg Tablet) 100 mg PO BEDTIME PRN PRN Reason: Insomnia Last Admin: 06/23/21 19:41 Dose: 100 mg Documented by: ENRIQUE Labs CBC & Chem 7: 06/24/21 05:27 06/24/21 05:27 Labs: Laboratory Results - last 24 hr 06/24/21 06/24/21 05:27 05:27 MCV 83.1 MCH 28.9 MCHC 34.8 RDW 17.2 H Plt Count 150 L MPV 9.7 Absolute Nucleated RBC 0.030 H Nucleated RBC % (auto) 0.3 H Anion Gap 17 Estim Creat Clear Calc 24.2 Estimated GFR 44 Fasting Glucose 131 H Calcium 8.7 Magnesium 2.6 Assessment and Plan (1) AMS (altered mental status): Status: Acute (2) UTI (urinary tract infection): Status: Acute Assessment and Plan: 75F presented with ams metabolic encephalopathy due to UTI encephalopathy resolved culture grew staph lugdenesens, complete rocephin day 12/26 COPD stable severe protein calorie malnutrition encourage po ?depression/anorexia psych appreciated, started lexapro opiate dependence suboxone decubitus ulcer local care mildly elevated troponins cardio appreciated, unlikely acs dvt prophylaxis - heparin dispo - plan for [facility] Quality Stroke Does the patient have a stroke diagnosis?: No VTE Prior VTE?: No VTE Risk Level:: Medical - moderate - high VTE Device Contraindication: Treatment Not Indicated VTE Drug Contraindication: N/A - Med Ordered
--- NOTE | 2021-06-24 15:39 | MHC.CM.PN ---
cm received call back from pt's /hcp Jay after setting up d/c time, per Mike has been having difficulty caring for pt and equsting she go to SNF, pt not appropriate for STR at this time and cm contacted pt's insurance [facility] who informed this CM that pt has [address] [facility] days, CM sent out several referrals w/ reporting [facility] their preference, per pt is unvaccinated and [facility] is unable to accommodate at this time, pt's only bed offer was from [facility] and they have gone for auth which is still pending at time of this note. is aware of bed offer and hospitalist and nursing also aware. CM will cont to follow d/c needs.
[2021-06-24 16:00] VITALS: BP 130/62; PULSE 76; RESP 16; TEMP 37.2; O2SAT 98
--- NOTE | 2021-06-24 16:03 | MHC.CLN ---
F/U PATIENT WITH POOR PO INTAKE AND REFUSING ENSURE. ENSURE SUPPLEMENT DISCONTINUED. STAGE II WOUNDS TO LOWER BACK, COCCYX, AND SACRUM. DISCHARGE TO SNF PENDING. NOTED INCREASE TO BUN, 06/24=73. CONTINUE TO ENCOURAGE INTAKE OF FOOD AND FLUIDS.
[2021-06-24] MEDS: Melatonin 3 MG TABLET 6 MG PO (19:55)
[2021-06-24] MEDS: Atorvastatin Calcium 10 MG TABLET PO (19:56)
[2021-06-24] MEDS: traZODone HCL 100 MG TABLET PO (19:56)
[2021-06-25] MEDS: 0.9 % Sodium Chloride Flush 3 ML SYRINGE IVFLUSH ×3 (07:51→20:29)
[2021-06-25] MEDS: Losartan Potassium 50 MG TABLET PO (09:21)
[2021-06-25] MEDS: Gabapentin 100 MG CAPSULE PO ×3 (09:21→20:28)
[2021-06-25] MEDS: Buprenorphine/Naloxone 4/1 mg FILM 1 FILM SUBLINGUAL ×3 (09:21→20:29)
[2021-06-25] MEDS: Escitalopram Oxalate 5 MG TABLET PO (09:21)
[2021-06-25] MEDS: Heparin Sodium,Porcine 5,000 UNIT/ML VIAL 5000 UNIT SUBCUT ×2 (09:22→20:28)
[2021-06-25 11:36] VITALS: BP 146/70; PULSE 79; RESP 16; TEMP 36.6; O2SAT 98
--- NOTE | 2021-06-25 11:39 | MHC.CM.PN ---
CM FOLLOWED UP W/FINANCIAL SERVICES REGARDING REFERRAL SENT YESTERDAY PT PT HAS INSURANCE THAT IS LIMITING HER PLACEMENT, PER FS PT ALSO HAS [employer] AND [facility] OPTION [employer], PER SNF OFFERING BED, FACILITY IS OUT OF NETWORK AND PT WOULD BE REQUIRED TO PAY COPAY WHICH PER [facility] IS BASED ON INCOME, FS WILL DISCUSS MEDICARE PLAN OPTIONS W/PT'S AND WILL UPDATE CM ON DECISION. CM WILL CONT TO FOLLOW D/C NEEDS.
--- NOTE | 2021-06-25 12:16 | MHC.CM.PN ---
PER FINANCIAL SERVICES, LATASHA HAD A CONFERENCE CALL W/PT'S AND [facility] AND C WILL BE DROPPED FROM PLAN OF 06/26/21 AND IT WILL TAKE 1-2 DAYS TO GO [employer] EFFECT AND PT WILL THEN BE STRAIGHT MEDICARE AND MEDICAID, CM CONTACTED [facility] AT 12:05PM [phone] AND PER AZEB CM WILL FOLLOW UP W/THEM AND THEY CAN OFFER BED ONCE INSURANCE IS CHANGED. D/C PLAN: [facility] SOON INSURANCE CHANGE IS COMPLETE, ANTICIPATE THURS/FRI, ACTION FOR BLS TRANSPORT.
--- NOTE | 2021-06-25 13:10 | P.PNIM_ITS ---
Subjective Subjective Date of Service: 06/25/21 Interval History: cc: ams interval history: back to baseline mental status, not participatory in conversation Physical Exam Vital Signs: Vital Signs: Last Vital Signs Temp 97.9 F 06/25/21 11:36 Pulse 79 06/25/21 11:36 Resp 16 06/25/21 11:36 BP 146/70 H 06/25/21 11:36 Pulse Ox 98 06/25/21 11:36 Body Mass Index 15.1 General: ao times 3, frail appearing, cachexic Resp:? diminsihed, no accessory muscles used CVS: S1,S2,RRR GI: soft, non tender, non distended Neuro:? motor grossly intact, alert Psych: agitated, anxious skin: stage II ulcer as shown Objective Data Active Medications Acetaminophen (Acetaminophen 325 Mg Tablet) 650 mg PO Q6H PRN PRN Reason: Pain, Mild (Pain Scale 1-3) Last Admin: 06/22/21 00:25 Dose: 650 mg Documented by: CECE Atorvastatin Calcium (Atorvastatin Calcium 10 Mg Tablet) 10 mg PO BEDTIME [facility] Last Admin: 06/24/21 19:56 Dose: 10 mg Documented by: GLORIA Buprenorphine/Naloxone (Buprenorphine/Naloxone 4/1 Mg Film) 1 film SUBLINGUAL TID [facility] Last Admin: 06/25/21 09:21 Dose: 1 film Documented by: SHANI Escitalopram Oxalate (Escitalopram Oxalate 5 Mg Tablet) 5 mg PO DAILY [facility] Last Admin: 06/25/21 09:21 Dose: 5 mg Documented by: SHANI Gabapentin (Gabapentin 100 Mg Capsule) 100 mg PO TID [facility] Last Admin: 06/25/21 09:21 Dose: 100 mg Documented by: SHANI Heparin Sodium (Porcine) (Heparin Sodium,Porcine 5,000 Unit/Ml Vial) 5,000 unit SUBCUT Q12H [facility] Last Admin: 06/25/21 09:22 Dose: 5,000 unit Documented by: SHANI Losartan Potassium (Losartan Potassium 50 Mg Tablet) 50 mg PO DAILY [facility]; Protocol Last Admin: 06/25/21 09:21 Dose: 50 mg Documented by: SHANI Melatonin (Melatonin 3 Mg Tablet) 6 mg PO BEDTIME PRN PRN Reason: Insomnia Last Admin: 06/24/21 19:55 Dose: 6 mg Documented by: GLORIA Pharmacy Consult (Consult Rx Perform Med Rec) 1 each MISCELLANE ONCE PRN PRN Reason: Consult order Senna (Sennosides 8.6 Mg Tablet) 17.2 mg PO BEDTIME PRN PRN Reason: Constipation Sodium Chloride (0.9 % Sodium Chloride Flush 3 Ml Syringe) 3 ml IVFLUSH QSHIFT [facility] Last Admin: 06/25/21 07:51 Dose: 3 ml Documented by: DABA Trazodone HCl (Trazodone Hcl 100 Mg Tablet) 100 mg PO BEDTIME PRN PRN Reason: Insomnia Last Admin: 06/24/21 19:56 Dose: 100 mg Documented by: GLORIA Labs CBC & Chem 7: 06/24/21 05:27 06/24/21 05:27 Assessment and Plan (1) AMS (altered mental status): Status: Acute (2) UTI (urinary tract infection): Status: Acute Assessment and Plan: 75F presented with ams metabolic encephalopathy due to UTI encephalopathy resolved culture grew staph lugdenesens, completed rocephin 5 day course COPD stable severe protein calorie malnutrition encourage po nutrition ?depression/anorexia, cannot fully rule out malignancy, but patient not interested in work up. psych appreciated - not candidate for inpatient at this time, started lexapro opiate dependence suboxone decubitus ulcer local care mildly elevated troponins cardio appreciated, unlikely acs, no further work up indicated dvt prophylaxis - heparin dispo - plan for snf when available Quality Stroke Does the patient have a stroke diagnosis?: No VTE Prior VTE?: No VTE Risk Level:: Medical - moderate - high VTE Device Contraindication: Treatment Not Indicated VTE Drug Contraindication: N/A - Med Ordered
--- NOTE | 2021-06-25 13:51 | PC.NURSE ---
Skin/Wound assessment completed. patient continues with stage 2 pressure ulcer on sacrum/coccyx. Triad applied covered with foam gauze. Patient also has stage 1 pressure injuries to bony spine prominences and on right hip. Patient is very thin and fragile. Heel protectors for protection.
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
[2021-06-25] MEDS: Melatonin 3 MG TABLET 6 MG PO (20:28)
[2021-06-25] MEDS: traZODone HCL 100 MG TABLET PO (20:29)
[2021-06-25] MEDS: Atorvastatin Calcium 10 MG TABLET PO (20:29)
[2021-06-26] VITALS: BP 90/54; PULSE 90; RESP 18; TEMP 37; O2SAT 98
[2021-06-26 04:21] VITALS: BP 112/57; PULSE 86; RESP 18; TEMP 36.2; O2SAT 98
[2021-06-26 07:46] VITALS: BP 144/73; PULSE 69; RESP 15; TEMP 36.2; O2SAT 97
[2021-06-26] MEDS: 0.9 % Sodium Chloride Flush 3 ML SYRINGE IVFLUSH ×2 (07:58→13:11)
--- NOTE | 2021-06-26 08:01 | PC.NURSE ---
pt lethargic this am , pt not answering questions , shallow breathing , vss , at bedside to see pt . called and now new order for pt to be DNR DNI .
--- NOTE | 2021-06-26 08:36 | MHC.CM.PN ---
EMR REVIEWED, PER PSYCHIATRY HCP HAS BEEN INVOKED, CM REACHED OUT TO PT'S AT 8:30AM REGARDING PT NEEDING A LETTER FOR INSURANCE TO BE CHANGED, [facility] AWARE THAT FS TYPED UP LETTER FOR PT TO SIGN YESTERDAY AFTERNOON AND EMAILED BACK TO FS, [facility] REPORTS HE RECEIVED A CALL FROM HOSPITALIST THIS MORNING THAT PT IS NOT DOING WELL AND THEY ARE GOING TO LET HER GO [facility] ALSO STATED, I DON'T WANT HER TO SUFFER ANY MORE. [facility] WILL COME IN W/HIS BROTHER IN LAW TODAY AND CM WILL MEET WITH THEM AT BEDSIDE. CM TO FOLLOW UP WITH HOSPITALIST.
--- NOTE | 2021-06-26 12:11 | MHC.CM.PN ---
CM MET W/PT'S NURSE, HOSPITALIST, AND DTR IN LAW AT BEDSIDE TO DISCUSS PLAN FOR PT, AFTER DISCUSSING HOSPICE VS PATENT [facility] FAMILY CHOSING PAT[facility], MOLST WAS COMPLETED BY PT'S /HCP [facility] AND HOSPITALIST, COMFORT CART PROVIDED. CM SPOKE W/CARE TEAM W/PLAN FOR STAFF TO MEET W/FAMILY TO PROVIDE SUPPORT, AT THIS TIME FAMILY IS OFF UNIT W/CARE TEAM AND PT IS REQUESTING COMFORTABLY. CM WILL CON'T TO FOLLOW PT/FAMILY NEEDS.
--- NOTE | 2021-06-26 12:46 | P.PNIM_ITS ---
Subjective Subjective Date of Service: 06/26/21 Interval History: Patient being followed for acute encephalopathy and elevated troponin, this a.m. patient noted to have shallow breathing therefore went to see patient and noted the patient appeared very weak cachectic talking and soft hubbard when asked about pain she said yes and complained of overall pain, otherwise did not continue in conversation. Review of Systems Unable to obtain review of system due to significant weakness and lack of patient's participation. Physical Exam Vital Signs: Vital Signs: Last Vital Signs Temp 97.1 F 06/26/21 07:46 Pulse 69 06/26/21 07:46 Resp 15 06/26/21 07:46 BP 144/73 H 06/26/21 07:46 Pulse Ox 97 06/26/21 07:46 Body Mass Index 15.1 General: Patient very lethargic arousable, shallow breathing, frail and cachectic Neck no JVD Resp:? diminsihed, no accessory muscles used CVS: S1,S2,RRR GI: soft, non tender, non distended, sunken bowel sounds audible Neuro:? Awake answer questions in yes and no, moving all 4 extremities speech clear Extremities no edema, long nails skin: Dry scaly skin, stage II ulcer cccyx, poor skin turgor Objective Data Active Medications Acetaminophen (Acetaminophen 325 Mg Tablet) 650 mg PO Q6H PRN PRN Reason: Pain, Mild (Pain Scale 1-3) Last Admin: 06/22/21 00:25 Dose: 650 mg Documented by: CECE Atorvastatin Calcium (Atorvastatin Calcium 10 Mg Tablet) 10 mg PO BEDTIME [facility] Last Admin: 06/25/21 20:29 Dose: 10 mg Documented by: MARYQC Buprenorphine/Naloxone (Buprenorphine/Naloxone 4/1 Mg Film) 1 film SUBLINGUAL TID [facility] Last Admin: 06/26/21 07:58 Dose: Not Given Documented by: DABA Non-Admin Reason: sedated Escitalopram Oxalate (Escitalopram Oxalate 5 Mg Tablet) 5 mg PO DAILY [facility] Last Admin: 06/26/21 07:58 Dose: Not Given Documented by: DABA Non-Admin Reason: lethargic Gabapentin (Gabapentin 100 Mg Capsule) 100 mg PO TID [facility] Last Admin: 06/26/21 07:58 Dose: Not Given Documented by: DABZhang Non-Admin Reason: pt lethargic Heparin Sodium (Porcine) (Heparin Sodium,Porcine 5,000 Unit/Ml Vial) 5,000 unit SUBCUT Q12H [facility] Last Admin: 06/26/21 10:34 Dose: Not Given Documented by: SHANI Non-Admin Reason: Patient Refused Losartan Potassium (Losartan Potassium 50 Mg Tablet) 50 mg PO DAILY [facility]; Protocol Last Admin: 06/26/21 07:59 Dose: Not Given Documented by: SHANI Non-Admin Reason: pt lethargic Melatonin (Melatonin 3 Mg Tablet) 6 mg PO BEDTIME PRN PRN Reason: Insomnia Last Admin: 06/25/21 20:28 Dose: 6 mg Documented by: ALEXIA Pharmacy Consult (Consult Rx Perform Med Rec) 1 each MISCELLANE ONCE PRN PRN Reason: Consult order Senna (Sennosides 8.6 Mg Tablet) 17.2 mg PO BEDTIME PRN PRN Reason: Constipation Sodium Chloride (0.9 % Sodium Chloride Flush 3 Ml Syringe) 3 ml IVFLUSH QSHIFT [facility] Last Admin: 06/26/21 07:58 Dose: 3 ml Documented by: SHANI Trazodone HCl (Trazodone Hcl 100 Mg Tablet) 100 mg PO BEDTIME PRN PRN Reason: Insomnia Last Admin: 06/25/21 20:29 Dose: 100 mg Documented by: ALEXIA Labs CBC & Chem 7: 06/24/21 05:27 06/24/21 05:27 Assessment and Plan (1) Major depressive disorder, recurrent episode with melancholic features: Status: Acute (2) Elevated troponin: Status: Acute (3) AMS (altered mental status): Status: Acute (4) UTI (urinary tract infection): Status: Acute (5) Opioid use disorder: Status: Acute (6) Cervical lymphadenopathy: Status: Acute (7) Chronic back pain: Status: Acute Assessment and Plan: 75F presented with ams of couple days duration with history of decreased by mouth intake for almost 1year, refusing to come to the hospital. metabolic encephalopathy due to UTI encephalopathy resolved No fevers, normal WBC count culture grew staph lugdenesens, completed rocephin 5 day course COPD stable severe protein calorie malnutrition Likely due to depression, malignancy not fully ruled out patient refused further workup Patient seen by psych and deemed incompetent, and placed on Lexapro opiate dependence On suboxone for last 5-6 months started by Ambika Beltran. previously was on oxycodone for chronic back pain decubitus ulcer local care, frequent position change mildly elevated troponins cardio appreciated, unlikely acs, no further work up indicated dvt prophylaxis - heparin Code status, this morning patient noted to have shallow breaths appeared very weak cachectic code status noted to be full code therefore spoke with patient's healthcare proxy Jay Hernandez [phone] And discussed plan of care due to generalized skip kick see a underlying severe depression and chronic pain with patient refusal to eat and to pursue further care, with ongoing symptoms for 1 year, and daughter and 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
--- NOTE | 2021-06-26 13:01 | MHC.CARE ---
CARE Team met with patient's family (, son, [id number] and grandson in [phone] then moved the group to the chapel to offer support and offer resources. Confirmed with accounting manager that at this time there are no restrictions on visitation hours and number of guests, family aware. would benefit from a referral to [facility] which CARE Team will do.
[2021-06-26] MEDS: Morphine Sulfate 4 MG/ML CARTRIDGE 3 MG IVPUSH ×2 (13:05→18:34)
--- NOTE | 2021-06-26 13:16 | MHC.CLN ---
F/U PATIENT WITH DX MAJOR DEPRESSIVE DISORDER. CONTINUES WITH POOR PO. 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 RD WILL FOLLOW WEEKLY.
[2021-06-26 23:53] VITALS: BP 107/60; PULSE 88; RESP 16; TEMP 36.1; O2SAT 97
[2021-06-27] MEDS: 0.9 % Sodium Chloride Flush 3 ML SYRINGE IVFLUSH ×3 (00:13→17:20)
[2021-06-27] MEDS: Morphine Sulfate 4 MG/ML CARTRIDGE 3 MG IVPUSH (00:13)
[2021-06-27] MEDS: LORazepam 2 MG/ML VIAL 0.25 MG IVPUSH (00:26)
[2021-06-27 04:30] VITALS: RESP 8
--- NOTE | 2021-06-27 13:45 | MHC.CM.PN ---
CM MET W/PT'S [facility] AT BEDSIDE, CM OFFERED SUPPORT FROM CM AND/OR CARE TEAM, [facility] REPORTS HE IS OKAY AND DECLINES, [facility] IS ACCOMPANIED BY 2 OTHER FAMILY MEMBERS AT BEDSIDE.
--- NOTE | 2021-06-27 18:26 | P.PNIM_ITS ---
Subjective Subjective Date of Service: 06/27/21 Interval History: Patient being followed for HOME CONNECT LPN, resting comfortably in no distress at bedside Review of Systems HOME CONNECT LPN not responsive Physical Exam Vital Signs: Vital Signs: Last Vital Signs Temp 97 F 06/26/21 23:53 Pulse 88 06/26/21 23:53 Resp 8 L 06/27/21 04:30 BP 107/60 06/26/21 23:53 Pulse Ox 97 06/26/21 23:53 Body Mass Index 15.1 Patient comfortable, no respiratory distress noted, unresponsive Lungs clear, shallow breath Patient very frail cachectic Extremities no edema Objective Data Active Medications Acetaminophen (Acetaminophen 325 Mg Tablet) 650 mg PO Q6H PRN PRN Reason: Pain, Mild (Pain Scale 1-3) Last Admin: 06/22/21 00:25 Dose: 650 mg Documented by: CECE Lorazepam (Lorazepam 2 Mg/Ml Vial) 0.25 mg IVPUSH Q6H PRN PRN Reason: Anxiety Last Admin: 06/27/21 00:26 Dose: 0.25 mg Documented by: ALEXIA Morphine Sulfate (Morphine Sulfate 4 Mg/Ml Cartridge) 3 mg IVPUSH Q2H PRN; Protocol PRN Reason: Pain, Severe (Pain Scale 7-10) Last Admin: 06/27/21 00:13 Dose: 3 mg Documented by: ALEXIA Pharmacy Consult (Consult Rx Perform Med Rec) 1 each MISCELLANE ONCE PRN PRN Reason: Consult order Sodium Chloride (0.9 % Sodium Chloride Flush 3 Ml Syringe) 3 ml IVFLUSH [facility] Last Admin: 06/27/21 17:20 Dose: 3 ml Documented by: SHANI Labs CBC & Chem 7: 06/24/21 05:27 06/24/21 05:27 Assessment and Plan (1) Major depressive disorder, recurrent episode with melancholic features: Status: Acute (2) Elevated troponin: Status: Acute (3) AMS (altered mental status): Status: Acute (4) UTI (urinary tract infection): Status: Acute (5) Abnormal mental state: Status: Acute (6) Opioid use disorder: Status: Acute (7) Cervical lymphadenopathy: Status: Acute (8) Chronic back pain: Status: Acute Assessment and Plan: 75F presented with ams of couple days duration with history of decreased by mouth intake for almost 1year, patient admitted to medical floor with a diagnosis of metabolic encephalopathy due to UTI, her encephalopathy resolved Patient finished 5 day course of Rocephin for staph UTI, she continued to have decreased by mouth intake and diagnosed with severe protein calorie malnutrition, she was noted to have decubitus ulcers mildly elevated troponin, patient remains lethargic, appeared cachectic week, psych eval was obtained and she deemed incompetent, due to generalized weakness, severe protein calorie malnutrition, underlying severe depression, chronic pain, previously on high- dose narcotics and now on Suboxone for last several months, case was discussed with patient's healthcare proxy and 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 Jay Hernandez [phone] hcp Quality Stroke Does the patient have a stroke diagnosis?: No VTE Prior VTE?: No VTE Risk Level:: Medical - moderate - high VTE Device Contraindication: Treatment Not Indicated VTE Drug Contraindication: N/A - Med Ordered
--- NOTE | 2021-06-28 07:40 | PM.DDS ---
Discharge Sum: Prov Provider Primary care physician: Franklin Guerrero MD Consults: 06/19/21 19:24 Consult to Cardiology Routine Consulting Provider: Tyron Mckeon Reason for consultation: High troponins 06/22/21 11:12 Consult to Psychiatry Routine Consulting Provider: Psych Covering Reason for consultation: ? depression, anorexia, does not appear to have medical cause Discharge Sum: Diag Contributing Factors (1) Major depressive disorder, recurrent episode with melancholic features: (2) Elevated troponin: (3) AMS (altered mental status): (4) UTI (urinary tract infection): (5) Abnormal mental state: (6) Opioid use disorder: (7) Cervical lymphadenopathy: (8) Chronic back pain: Discharge Sum: Summary Date and Time Date of admission: 06/19/21 19:14 Date of : 06/27/21 Time of : 10:45 Summary Details: 75F with past medical history of hypertension, hyperlipidemia opiate dependence on Suboxone, chronic back pain, degenerative joint disease, history of cervical Center presented to [facility] with chief complaint of confusion with decreased by mouth intake for almost 1year, patient admitted to medical floor with a diagnosis of metabolic encephalopathy due to UTI, her encephalopathy resolved Patient finished 5 day course of Rocephin for staph UTI, she continued to have decreased by mouth intake and diagnosed with severe protein calorie malnutrition, she was noted to have decubitus ulcers, mildly elevated troponin, patient remains lethargic, appeared cachectic, weak, psych eval was obtained and she deemed incompetent, due to generalized weakness, severe protein calorie malnutrition, underlying severe depression, chronic pain, on Suboxone for last several months, case was discussed with patient's Jay Hernandez [phone] healthcare proxy and 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 On 06/27/21 patient peacefully at 10:45 pm , noted to have no respiratory rate, no pulse, pupils dilated Cause of cardiopulmonary arrest Additional Data Attending physician: Amara Goodman MD
--- NOTE | 2021-07-17 11:07 | P.CDIR_ITS ---
Documented by User: Stacy Magallon CCS, CDIS 07/17/21 11:14 Retrospective Query PHYSICIAN'S DOCUMENTATION REQUEST Date of Query: 07/17/21 6722 Patient Name: Kellie Hernandez Admit Date: 06/19/21 Dear Doctor, A review of the medical record indicates additional documentation may be indicated. Please review below and update the documentation accordingly. Risk Factors/Clinical Indicators/Treatments Wound care notes - 06/20: pressure injury Stage 2 coccyx. Macerated and unattached. Foam dressing. Discharge summary & progress notes: Decubitus ulcer, local area, frequent position change. Skin assessment: 06/25 - Pressure injury Stage 2 coccyx, air loss bed and foam dressing. Pressure injury Stage 2, sacrum, foam dressing. Based on the above, could you please provide, in the Progress Notes, further information regarding the ulcer/wound: Consistency of documentation within the medical record: * Pressure (decubitus) ulcer * Arterial ulcer * Venous ulcer * If a pressure ulcer, please also include the stage* of the ulcer and location: * Stage 1 - Skin intact, non-blanchable redness * Stage 2 - Partial thickness loss of dermis, includes intact or open blister * Other * Unable to determine Use of terms such as suspected, likely, concern for, or probable (associated with a specific diagnosis that is being evaluated, monitored, or treated as if it exists) are acceptable and can be coded in the inpatient setting, when documented at the time of discharge. Thank you, Stacy Magallon CCS, CDIS Extension: [id number] Please use your independent medical judgment in providing your response. THIS QUERY IS PART OF THE PERMANENT MEDICAL RECORD Documented by User: Amara Goodman MD 07/25/21 15:12 Retrospective Query Provider Response: Other (stage 2 coccyx decub ulcer)
== END 2021-06-27 23:00 | disposition expired | DRG 689 ==
LOC: HO.ED 18:24 → HO.EDOVER 19:32 → HO.ICU 06-20 07:35 → HO.EDOVER 06-20 08:56 → HO.S3 06-20 08:57
PROVIDERS: Internal Medicine; Admitting Provider Hospitalist; Emergency Provider Emergency Medicine; PCP Internal Medicine; Visit Provider Hospitalist
DX: N39.0 Urinary tract infection, site not specified (principal); E43 Unspecified severe protein-calorie malnutrition; G93.41 Metabolic encephalopathy; F11.20 Opioid dependence, uncomplicated; Z68.1 Body mass index [BMI] 19.9 or less, adult; F33.9 Major depressive disorder, recurrent, unspecified; B95.7 Other staphylococcus as the cause of diseases classified elsewhere; F17.210 Nicotine dependence, cigarettes, uncomplicated; Z20.822 Contact with and (suspected) exposure to COVID-19; L89.152 Pressure ulcer of sacral region, stage 2; E78.5 Hyperlipidemia, unspecified; J44.9 Chronic obstructive pulmonary disease, unspecified; Z71.6 Tobacco abuse counseling; Z88.0 Allergy status to penicillin; Z88.6 Allergy status to analgesic agent; Z79.899 Other long term (current) drug therapy; Z51.5 Encounter for palliative care
CPT/HCPCS: 36415; 70450; 71045; 71250; 80048; 80053; 80307; 81001; 82077; 83735; 84484; 85025; 85027; 87086; 87088; 87186; 87635; 93005; 93306; 96361; 96374; 96375; 96376; 97162; 99285; J0696; J1956; J2060; J2270; Q0163